=== PATIENT | female | born 1960 | race African-American/Black ===

== ENCOUNTER 2016-12-21 11:33 | Inpatient (IN) | payer OTHER ==
[2016-12-21 12:40] VITALS: BMI 33.4
--- NOTE | 2016-12-21 14:37 | HP ---
Admission [facility] Chief Complaint: REHAB TX FOR ALCOHOL AND DRUG DEPENDENCE Allergies/Adverse Reactions: Allergies Allergy/AdvReac Type Severity Reaction Status Date / Time LARA Inhibitors Allergy Verified 08/01/16 10:04 enalapril maleate Allergy Verified 08/01/16 10:05 [From Vasotec] enalaprilat dihydrate Allergy Verified 08/01/16 10:05 [From Vasotec] shellfish derived Allergy Verified 08/01/16 10:05 History of Present Illness: 56 Y/O AA/FEMALE WITH A HX OF ALCOHOL DEPENDENCE SEEKING REHAB TX. PT WAS IN [facility] FOR C/O CHEST PAIN FROM 12/18/16 TO 12/21/16. DENIES ANY CHEST PAIN AT THIS TIME. PT WAS DISCHARGED FROM [facility] TODAY AND REFERRED TO REHAB. Exam Limitations: No Limitations - Ebola screening Have you traveled outside of the country in the last 21 days: No Have you had contact with anyone from an Ebola affected area: No Have you been sick,other than usual withdrawal symptoms: No - Review of Systems Constitutional: No Symptoms Reported EENT: reports: Dental Problems (MISSING TEETH;BILATERAL DENTURES BUT LEFT UPPER DENTURES AT HOME) Respiratory: reports: Shortness of Breath (HX ASTHMA), Wheezing Cardiac: reports: Lightheadedness GI: reports: No Symptoms Reported : reports: No Symptoms Reported Musculoskeletal: reports: No Symptoms Reported Integumentary: reports: No Symptoms Reported Neuro: reports: Headache, Unsteady Gait, Dizziness Endocrine: reports: No Symptoms Reported Hematology: reports: No Symptoms Reported Psychiatric: reports: Orientated x3, Depressed Other Systems: Reviewed and Negative Patient History - Patient Medical History Hx Anemia: No Hx Asthma: Yes (ALBUTEROL INH) Hx Chronic Obstructive Pulmonary Disease (COPD): Yes (ON MEDS) Hx Cancer: No Hx Cardiac Disorders: Yes (CHF) Hx Congestive Heart Failure: Yes (ON MEDS) Hx Hypertension: Yes (ON MEDS) Hx Hypercholesterolemia: Yes (ON MEDS) Hx Pacemaker: Yes (R CHEST WALL STATES CHECKED LAST MONTH) HX Cerebrovascular Accident: No Hx Seizures: No Hx Dementia: No Hx Diabetes: No Hx Gastrointestinal Disorders: No Hx Liver Disease: No Hx Genitourinary Disorders: No Hx Sexually Transmitted Disorders: No Hx Renal Disease (ESRD): No Hx Thyroid Disease: No Hx Human Immunodeficiency Virus (HIV): No (NEGATIVE HX) Hx Hepatitis C: No Hx Depression: Yes (ON MEDS) Hx Suicide Attempt: No Hx Bipolar Disorder: Yes (ON MEDS) Hx Schizophrenia: Yes (ON MEDS) - Patient Surgical History Past Surgical History: Yes Hx Neurologic Surgery: No Hx Cataract Extraction: No Hx Cardiac Surgery: No Hx Lung Surgery: No Hx Breast Surgery: No Hx Breast Biopsy: No Hx Abdominal Surgery: No Hx Appendectomy: No Hx Cholecystectomy: No Hx Genitourinary Surgery: No Hx Section: No Hx Orthopedic Surgery: No Other Surgical History: Cardiac Surgery-Pace maker Anesthesia Reaction: No - PPD History Previous Implant?: Yes Implanted On Prior [facility] Admission?: No Date: 08/02/16 Results: 0MM PPD to be Administered?: No - Reproductive History Patient is a Female of Child Bearing Age (11 -55 yrs old): No (MENOPAUSAL) Last Menstrual Period: 01/05/09 Patient : No - Smoking Cessation Smoking history: Former smoker Have you smoked in the past 12 months: No If you are a former smoker, when did you quit?: 3 years Cigars Per Day: 0 Hx Chewing Tobacco Use: No Initiated information on smoking cessation: No - Substance & Tx. History Hx Alcohol Use: Yes (VODKA) Hx Substance Use: Yes (COCAINE) Substance Use Type: Alcohol, Cocaine Hx Substance Use Treatment: Yes ([email or web address]) Family Disease History - Family Disease History Family Disease History: Diabetes: Father, Heart Disease: Mother Admission Physical Exam S - Vital Signs Vital Signs: Vital Signs - 24 hr 12/21/16 12:37 Temperature 97.2 F L Pulse Rate 60 Respiratory 20 Rate Blood Pressure 104/50 - Physical General Appearance: Yes: No Apparent Distress, Obese, Anxious HEENTM: Yes: EOMI, Normocephalic, YADIRA, Pharynx Normal Respiratory: Yes: Chest Non-Tender, Lungs Clear, Normal Breath Sounds, No Respiratory Distress Neck: Yes: No masses,lesions,Nodules, Supple, Trachea in good position Breast: Yes: Breast Exam Deferred Cardiology: Yes: Regular Rhythm, Regular Rate, S1, S2, Surgical Scar (AT PACEMAKER POSITION) Abdominal: Yes: Within Normal Limits, Normal Bowel Sounds, Non Tender, Soft Genitourinary: Yes: Other (N/C) Back: Yes: Within Normal Limits Musculoskeletal: Yes: full range of Motion, Gait Steady Extremities: Yes: Normal Range of Motion, Non-Tender Neurological: Yes: sticker operator II-XII NML intact, Fully Oriented, Alert Integumentary: Yes: Dry, Warm Lymphatic: Yes: Within Normal Limits - Diagnostic (1) Chest pain Current Visit: Yes Status: Chronic Qualifiers: Chest pain type: unspecified Qualified Code(s): R07.9 - Chest pain, unspecified (2) Cocaine dependence, uncomplicated Current Visit: Yes Status: Chronic (3) Hyperlipidemia Current Visit: Yes Status: Chronic Qualifiers: Hyperlipidemia type: unspecified Qualified Code(s): E78.5 - Hyperlipidemia, unspecified (4) Hypertension Current Visit: Yes Status: Chronic Qualifiers: Hypertension type: essential hypertension Qualified Code(s): I10 - Essential (primary) hypertension (5) AICD (automatic cardioverter/defibrillator) present Current Visit: Yes Status: Chronic (6) Alcohol dependence with uncomplicated withdrawal Current Visit: Yes Status: Chronic (7) Atrial fibrillation Current Visit: Yes Status: Chronic Qualifiers: Atrial fibrillation type: paroxysmal Qualified Code(s): I48.0 - Paroxysmal atrial fibrillation (8) COPD (chronic obstructive pulmonary disease) Current Visit: Yes Status: Chronic Qualifiers: COPD type: unspecified COPD Qualified Code(s): J44.9 - Chronic obstructive pulmonary disease, unspecified (9) Chronic heart failure Current Visit: Yes Status: Chronic Qualifiers: Heart failure type: systolic Qualified Code(s): I50.22 - Chronic systolic (congestive) heart failure Cleared for Admission [facility] - Detox or Rehab Claeared for Rehab Admission: Yes [facility] Breath Alcohol Content Breath Alcohol Content: 0 Urine Pregancy Test - Result Urine Test Results: Negative- NO Line Present Urine Drug Screen - Results Drug Screen Negative: No Urine Drug Screen Results: ADRIAN-Cocaine, BZO-Benzodiazepines
[2016-12-21] MEDS ORDERED: ACETAMINOPHEN 325 MG TABLET (FP) PO PRN (14:48)
[2016-12-21] MEDS ORDERED: MAG HYDROX/AL HYDROX/SIMETH 30 ML UNIT-DOSE CUP PO PRN (14:48)
[2016-12-21] MEDS ORDERED: MAGNESIUM CITRATE 300 ML BOTTLE PO PRN (14:48)
[2016-12-21] MEDS ORDERED: P-EPHED 60MG/TRIPROLIDI 2.5MG TABLET PO PRN (14:48)
[2016-12-21] MEDS ORDERED: LOPERAMIDE HCL 2 MG CAPSULE PO PRN (14:48)
[2016-12-21] MEDS ORDERED: IBUPROFEN 400 MG TABLET (FP) PO PRN (14:48)
[2016-12-21] MEDS ORDERED: MAGNESIUM HYDROX 2400MG/30ML ORAL SUSPENSION 30 ML CUP PO PRN (14:48)
[2016-12-21] MEDS ORDERED: MENTHOL/PHENOL 1 EACH UD MM PRN (14:48)
[2016-12-21] MEDS ORDERED: diphenhydrAMINE HCL 50 MG CAPSULE PO PRN (14:48)
[2016-12-21] MEDS ORDERED: ALBUTEROL SO4 6.7 GM HFA INHALER IH PRN (15:00)
[2016-12-21] MEDS: THIAMINE HCL 100 MG TABLET (FP) PO SCH (22:21)
[2016-12-21] MEDS: ATORVASTATIN CA 40 MG TABLET (FP) PO SCH (22:22)
[2016-12-21] MEDS: hydrALAZINE HCL 25 MG TABLET (FP) PO SCH (22:22)
[2016-12-21] MEDS ORDERED: PT OWN MED DRAWER 7, Y5N ONE (22:32)
[2016-12-22] MEDS: hydrALAZINE HCL 25 MG TABLET (FP) PO SCH ×3 (06:54→22:30)
[2016-12-22] MEDS ORDERED: PT OWN MED DRAWER 7, Y5N ONE ×3 (08:55→12:18)
[2016-12-22] MEDS ORDERED: FUROSEMIDE 40 MG TABLET (FP) PO SCH (10:00)
[2016-12-22] MEDS ORDERED: ASPIRIN 325 MG ENTERIC COATED TABLET (FP) PO SCH (10:00)
[2016-12-22] MEDS ORDERED: ARIPiprazole 20 MG TABLET PO SCH ×2 (10:00→12:00)
[2016-12-22] MEDS ORDERED: ISOSORBIDE MONONITRATE 30 MG TAB.SR.24H (FP) PO SCH ×2 (10:00)
[2016-12-22] MEDS ORDERED: SPIRONOLACTONE 25 MG TABLET (FP) PO SCH ×2 (10:00)
[2016-12-22] MEDS ORDERED: amLODIPine BESYLATE 2.5 MG TABLET (FP) PO SCH (10:00)
[2016-12-22] MEDS ORDERED: ARIPiprazole 15 MG TABLET PO SCH (10:00)
[2016-12-22] MEDS: ISOSORBIDE MONONITRATE 20 MG TABLET PO SCH (10:24)
[2016-12-22] MEDS: PRENATAL VITAMINS W/ FOLIC ACID TABLET (FP) PO SCH (10:24)
[2016-12-22] MEDS: FUROSEMIDE 20 MG TABLET (FP) PO SCH (10:25)
[2016-12-22] MEDS: ASPIRIN COATED 81 MG TABLET.EC PO SCH (10:25)
[2016-12-22] MEDS: SPIRONOLACTONE 25 MG TABLET (FP) PO SCH (10:25)
[2016-12-22] MEDS: FLUoxetine HCL 20 MG CAPSULE (FP) PO SCH (10:25)
[2016-12-22] MEDS: METOPROLOL SUCCINATE 25 MG TAB.SR.24H (FP) PO SCH (10:25)
[2016-12-22] MEDS: RIVAROXABAN 20 MG TABLET PO SCH (10:26)
[2016-12-22] MEDS: DIGOXIN 0.125 MG TABLET (FP) PO SCH (10:26)
[2016-12-22] MEDS: DOCUSATE SODIUM 100 MG CAPSULE (FP) PO SCH (10:28)
[2016-12-22] MEDS: AMIODARONE HCL 200 MG TABLET (FP) PO SCH (10:29)
[2016-12-22] MEDS: PANTOPRAZOLE 40 MG TABLET (FP) PO SCH (10:31)
[2016-12-22] MEDS ORDERED: ARIPiprazole 10 MG TABLET PO SCH (11:34)
--- NOTE | 2016-12-22 12:43 | PN ---
[facility] Progress Note (SOAP) Subjective: Pt. C/O retrosternal chest radiating to left shoulder. Pt. has hx. of AF, CHF, HTN & Pacemaker. Objective: 12/22/16 12:36 Vital Signs - 8 hr 12/22/16 12/22/16 12/22/16 07:14 09:15 10:00 Temperature 98.1 F 98.5 F Pulse Rate 68 69 60 Respiratory 18 18 16 Rate Blood Pressure 127/87 154/80 108/63 12/22/16 12/22/16 10:26 11:30 Temperature 98.5 F Pulse Rate 69 69 Respiratory 16 Rate Blood Pressure 108/63 Lungs : Clear Heart : RR, no murmur Assessment: 12/22/16 12:39 Angina Pectoris Plan: O2 via nasal cannula NTG 0.4mg SL Transfer to ED, report given to Dr. Coffey
[2016-12-22] MEDS ORDERED: ARIPiprazole 10 MG TABLET PO ONE (12:45)
--- NOTE | 2016-12-22 16:11 | EKG ---
Test Reason : Blood Pressure : / mmHG Vent. Rate : 060 BPM Atrial Rate : 060 BPM P-R Int : 230 ms QRS Dur : 114 ms QT Int : 446 ms P-R-T Axes : 047 028 132 degrees QTc Int : 446 ms Atrial-paced rhythm with prolonged AV conduction INCOMPLETE LEFT BUNDLE BRANCH BLOCK T WAVE ABNORMALITY, CONSIDER ANTEROLATERAL ISCHEMIA ABNORMAL ECG WHEN COMPARED WITH ECG OF 21-DEC-2016 21:05, ELECTRONIC ATRIAL PACEMAKER HAS REPLACED SINUS RHYTHM Confirmed by DENAE BEACH MD ([id number]) on 12/22/2016 4:11:30 PM Referred By: Rizwana Mustafa Confirmed By:DENAE BEACH MD
--- NOTE | 2016-12-22 16:15 | EKG ---
Test Reason : Blood Pressure : / mmHG Vent. Rate : 066 BPM Atrial Rate : 066 BPM P-R Int : 190 ms QRS Dur : 112 ms QT Int : 428 ms P-R-T Axes : 000 -24 156 degrees QTc Int : 448 ms SINUS RHYTHM WITH OCCASIONAL atrial-paced complexes AND WITH OCCASIONAL PREMATURE VENTRICULAR COMPLEXES LOW VOLTAGE QRS ABNORMAL ECG WHEN COMPARED WITH ECG OF 01-AUG-2016 17:58, PREMATURE VENTRICULAR COMPLEXES ARE NOW PRESENT Confirmed by YONG CORTEZ, DENAE ([id number]) on 12/22/2016 4:15:28 PM Referred By: Rizwana Mustafa Confirmed By:DENAE BEACH MD
[2016-12-22] MEDS: THIAMINE HCL 100 MG TABLET (FP) PO SCH (22:30)
[2016-12-22] MEDS: ATORVASTATIN CA 40 MG TABLET (FP) PO SCH (22:30)
[2016-12-22] MEDS: traZODone HCL 100 MG TABLET (FP) PO SCH (22:30)
[2016-12-23] MEDS: hydrALAZINE HCL 25 MG TABLET (FP) PO SCH ×3 (06:31→21:16)
[2016-12-23] MEDS ORDERED: PT OWN MED DRAWER 7, Y5N ONE ×3 (08:10→13:04)
[2016-12-23 09:23] LABS: MCH 29.1 pg (25.7-33.7); MCHC 32.6 g/dl (32.0-36.0); MEAN CELL VOLUME 89.1 fl (80-96); PLATELET COUNT 196 K/MM3 (134-434); RDW 16.5 % (11.6-15.6); WHITE BLOOD COUNT 2.5 K/mm3 (4.0-10.0)
[2016-12-23] MEDS: SPIRONOLACTONE 25 MG TABLET (FP) PO SCH (09:25)
[2016-12-23] MEDS: ARIPiprazole 10 MG TABLET PO SCH (09:25)
[2016-12-23] MEDS: DOCUSATE SODIUM 100 MG CAPSULE (FP) PO SCH (09:26)
[2016-12-23] MEDS: AMIODARONE HCL 200 MG TABLET (FP) PO SCH (09:26)
[2016-12-23] MEDS: ASPIRIN COATED 81 MG TABLET.EC PO SCH (09:27)
[2016-12-23] MEDS: DIGOXIN 0.125 MG TABLET (FP) PO SCH (09:27)
[2016-12-23] MEDS: ISOSORBIDE MONONITRATE 20 MG TABLET PO SCH (09:27)
[2016-12-23] MEDS: FUROSEMIDE 20 MG TABLET (FP) PO SCH (09:27)
[2016-12-23] MEDS: PRENATAL VITAMINS W/ FOLIC ACID TABLET (FP) PO SCH (09:27)
[2016-12-23] MEDS: PANTOPRAZOLE 40 MG TABLET (FP) PO SCH (09:28)
[2016-12-23] MEDS: METOPROLOL SUCCINATE 25 MG TAB.SR.24H (FP) PO SCH (09:28)
[2016-12-23] MEDS: RIVAROXABAN 20 MG TABLET PO SCH (09:28)
[2016-12-23] MEDS: FLUoxetine HCL 20 MG CAPSULE (FP) PO SCH (09:28)
[2016-12-23 09:30] LABS: ANION GAP 7 (8-16); CALCIUM 8.6 mg/dL (8.5-10.1); CO2 29 mmol/L (21-32); CREATININE 0.8 mg/dL (0.55-1.02); GLUCOSE,RANDOM 80 mg/dL (74-106); SGOT/AST 14 U/L (15-37); SGPT/ALT 16 U/L (12-78)
[2016-12-23 09:32] LABS: ALK PHOS 42 U/L (45-117); BILIRUBIN,TOTAL 0.4 mg/dL (0.2-1.0); TOT PROT 6.5 g/dl (6.4-8.2)
[2016-12-23 09:38] LABS: INR 1.24 (0.82-1.09); PROTHROMBIN TIME (PATIENT) 13.7 SEC (9.98-11.88)
[2016-12-23 11:26] LABS: HIV 1 & 2 AB NEGATIVE; HIV 1 AGp24 NEGATIVE
[2016-12-23] MEDS: ATORVASTATIN CA 40 MG TABLET (FP) PO SCH (21:16)
[2016-12-23] MEDS: traZODone HCL 100 MG TABLET (FP) PO SCH (21:16)
[2016-12-23] MEDS: THIAMINE HCL 100 MG TABLET (FP) PO SCH (23:30)
[2016-12-24] MEDS: hydrALAZINE HCL 25 MG TABLET (FP) PO SCH ×3 (06:29→21:16)
--- NOTE | 2016-12-24 08:05 | HP ---
Psychiatrist Admission - Data Date of interview: 12/24/16 Admission source: [facility] Identifying data: This is the third [facility] admission for this 56 years old female, mother of 3 children, unemployed on SSI, domiciled Medical History: Significant for Asthma, HTN, Hyperlipidemia, CHF, AFib and S/P ICD placement in December 10, 2010 Psychiatric History: Reports being diagnosed with Schizoaffective Disorder in 1998 and has hd 2 previous psychiatric admissions both to [facility] respectively in February & Aug 2016(SI). Reports seing a Dr Marlena Angelo, a staff psychiatrist at [facility] and she is prescribed Prozac 20 mg po daily and Abilify 5 mg po HS(Both Rx filled on 11/18/16). Reports feeling fine and sleeping wel at present. Denies experiencing psychotic, manic or depressive symptoms, S/H ideations Physical/Sexual Abuse/Trauma History: Denies history of emotional, physical or sexual abuse as well as DV relationship Additional Comment: No criminal hstory Vital Signs: Vital Signs - 24 hr 12/23/16 12/23/16 12/23/16 09:13 09:27 13:00 Temperature Pulse Rate 110 H 110 H 62 Respiratory 16 16 Rate Blood Pressure 123/70 109/63 12/23/16 12/24/16 12/24/16 23:04 00:30 03:30 Temperature Pulse Rate 60 Respiratory 18 18 Rate Blood Pressure 122/79 12/24/16 07:07 Temperature 97.8 F Pulse Rate 60 Respiratory 18 Rate Blood Pressure 134/84 Allergies/Adverse Reactions: Allergies Allergy/AdvReac Type Severity Reaction Status Date / Time LARA Inhibitors Allergy Verified 12/22/16 13:44 enalaprilat dihydrate Allergy Verified 12/22/16 13:44 [From Vasotec] shellfish derived Allergy Verified 12/22/16 13:44 Date of last physical exam: 12/21/16 Concur with the findings of this exam: Yes - Substance Abuse/Tx History Hx Alcohol Use: Yes Hx Substance Use: Yes Substance Use Type: Alcohol (Started drinking alcohol at age 20, consumes half a pint of vodka daily. Last drink on 12/21/16 ), Cocaine (Started smoking crack cocaine at age 29, consumes $100 worth daily. Last smoked on 12/18/16) Hx Substance Use Treatment: Yes (2 previous inpt detox & 2 inpt rehab @ [facility]) - Admission Criteria Previous failed treatment: Yes Poor recovery environment: Yes Comorbidities: Yes Lacks judgement: Yes Mental Status Exam - Mental Status Exam Alert and Oriented to: Time, Place, Person Cognitive Function: Fair Patient Appearance: Well Groomed Mood: Hopeful, Euthymic Affect: Blunted Speech Pattern: Clear Voice Loudness: Normal Thought Process: Intact Thought Disorder: Not Present Hallucinations: Denies Suicidal Ideation: Denies Homicidal Ideation: Denies Insight/Judgement: Fair Sleep: Fair Appetite: Good Muscle strength/Tone: Normal Gait/Station: Normal Psychiatric Findings - Problem List ([place] 1, 2,3) (1) Alcohol dependence with uncomplicated withdrawal Current Visit: Yes Status: Chronic (2) Cocaine dependence, uncomplicated Current Visit: Yes Status: Chronic (3) Schizoaffective disorder Current Visit: Yes Status: Acute (4) COPD (chronic obstructive pulmonary disease) Current Visit: Yes Status: Chronic Qualifiers: COPD type: unspecified COPD Qualified Code(s): J44.9 - Chronic obstructive pulmonary disease, unspecified (5) AICD (automatic cardioverter/defibrillator) present Current Visit: Yes Status: Chronic (6) Chronic heart failure Current Visit: Yes Status: Chronic Qualifiers: Heart failure type: systolic Qualified Code(s): I50.22 - Chronic systolic (congestive) heart failure (7) Hyperlipidemia Current Visit: Yes Status: Chronic Qualifiers: Hyperlipidemia type: unspecified Qualified Code(s): E78.5 - Hyperlipidemia, unspecified (8) Hypertension Current Visit: Yes Status: Chronic Qualifiers: Hypertension type: essential hypertension Qualified Code(s): I10 - Essential (primary) hypertension - Initial Treatment Plan Initial Treatment Plan: 1) Continue Prozac 20 mg po daily and Abilify 5 mg po daily. 2) Monitor progress
[2016-12-24] MEDS ORDERED: PT OWN MED DRAWER 7, Y5N ONE ×3 (08:32→20:35)
[2016-12-24 10:02] LABS: URINE APPEARANCE CLEAR; URINE BILIRUBIN NEGATIVE (NEGATIVE); URINE BLOOD NEGATIVE (NEGATIVE); URINE COLOR YELLOW; URINE GLUCOSE (UA) NEGATIVE (NEGATIVE); URINE KETONE NEGATIVE (NEGATIVE); URINE LEUK ESTERASE NEGATIVE (NEGATIVE); URINE NITRITE NEGATIVE (NEGATIVE); URINE PROTEIN NEGATIVE (NEGATIVE); URINE UROBILINOGEN NEGATIVE E.U./dl (0.2-1.0)
[2016-12-24] MEDS: PRENATAL VITAMINS W/ FOLIC ACID TABLET (FP) PO SCH (10:11)
[2016-12-24] MEDS: AMIODARONE HCL 200 MG TABLET (FP) PO SCH (10:12)
[2016-12-24] MEDS: SPIRONOLACTONE 25 MG TABLET (FP) PO SCH (10:12)
[2016-12-24] MEDS: ARIPiprazole 10 MG TABLET PO SCH (10:12)
[2016-12-24] MEDS: DIGOXIN 0.125 MG TABLET (FP) PO SCH (10:12)
[2016-12-24] MEDS: PANTOPRAZOLE 40 MG TABLET (FP) PO SCH (10:13)
[2016-12-24] MEDS: METOPROLOL SUCCINATE 25 MG TAB.SR.24H (FP) PO SCH (10:13)
[2016-12-24] MEDS: ASPIRIN COATED 81 MG TABLET.EC PO SCH (10:13)
[2016-12-24] MEDS: FLUoxetine HCL 20 MG CAPSULE (FP) PO SCH (10:13)
[2016-12-24] MEDS: DOCUSATE SODIUM 100 MG CAPSULE (FP) PO SCH (10:13)
[2016-12-24] MEDS: RIVAROXABAN 20 MG TABLET PO SCH (10:14)
[2016-12-24] MEDS: FUROSEMIDE 20 MG TABLET (FP) PO SCH (10:14)
[2016-12-24] MEDS: ISOSORBIDE MONONITRATE 20 MG TABLET PO SCH (10:15)
[2016-12-24] MEDS ORDERED: NITROGLYCERIN SUBLINGUAL 1/150 0.4 MG TAB ONE (10:41)
[2016-12-24] MEDS: NITROGLYCERIN SUBLINGUAL 1/150 0.4 MG TAB SL PRN (10:44)
--- NOTE | 2016-12-24 11:25 | PN ---
[facility] Progress Note (SOAP) Subjective: Pt. is c/o chest pain 06/25 given NTG & O2 via nasal cannula 2L/min now it's . Objective: 12/24/16 11:22 Vital Signs - 8 hr 12/24/16 12/24/16 12/24/16 03:30 07:07 09:47 Temperature 97.8 F Pulse Rate 60 60 Respiratory 18 18 Rate Blood Pressure 134/84 108/71 12/24/16 12/24/16 10:10 10:12 Temperature Pulse Rate 61 61 Respiratory Rate Blood Pressure 102/71 O2 sat 100% Lungs : Clear A&P Heart : RR,no murmur Ekg done stat no changes from previous Ekg Assessment: 12/24/16 11:24 Chest pain,atypical VS Angina pectoris(established diagnosis) Plan: Troponin, CPK NTG,Aspirin,O2 Bed rest
[2016-12-24] MEDS ORDERED: ONDANSETRON *ODT* 4 MG TABLET SL PRN (11:27)
--- NOTE | 2016-12-24 11:36 | EKG ---
Test Reason : Blood Pressure : / mmHG Vent. Rate : 060 BPM Atrial Rate : 060 BPM P-R Int : 236 ms QRS Dur : 116 ms QT Int : 450 ms P-R-T Axes : 056 -19 104 degrees QTc Int : 450 ms Atrial-paced rhythm with prolonged AV conduction INCOMPLETE LEFT BUNDLE BRANCH BLOCK T WAVE ABNORMALITY, CONSIDER LATERAL ISCHEMIA ABNORMAL ECG WHEN COMPARED WITH ECG OF 21-DEC-2016 20:31, PREMATURE VENTRICULAR COMPLEXES ARE NO LONGER PRESENT Confirmed by HORACE BO MD ([id number]) on 12/24/2016 11:35:40 AM Referred By: Rizwana Mustafa Confirmed By:HORACE BO MD
[2016-12-24 12:45] LABS: TROPONIN I < 0.02 ng/ml (0.00-0.05)
[2016-12-24] MEDS: THIAMINE HCL 100 MG TABLET (FP) PO SCH (21:17)
[2016-12-24] MEDS: traZODone HCL 100 MG TABLET (FP) PO SCH (21:17)
[2016-12-24] MEDS: ATORVASTATIN CA 40 MG TABLET (FP) PO SCH (21:17)
[2016-12-25] MEDS ORDERED: PT OWN MED DRAWER 7, Y5N ONE ×3 (05:50→15:50)
[2016-12-25] MEDS: hydrALAZINE HCL 25 MG TABLET (FP) PO SCH ×3 (06:51→21:13)
[2016-12-25] MEDS: PANTOPRAZOLE 40 MG TABLET (FP) PO SCH (10:01)
[2016-12-25] MEDS: PRENATAL VITAMINS W/ FOLIC ACID TABLET (FP) PO SCH (10:01)
[2016-12-25] MEDS: ARIPiprazole 5 MG TABLET (FP) PO SCH (10:02)
[2016-12-25] MEDS: FUROSEMIDE 20 MG TABLET (FP) PO SCH (10:02)
[2016-12-25] MEDS: SPIRONOLACTONE 25 MG TABLET (FP) PO SCH (10:02)
[2016-12-25] MEDS: ASPIRIN COATED 81 MG TABLET.EC PO SCH (10:02)
[2016-12-25] MEDS: FLUoxetine HCL 20 MG CAPSULE (FP) PO SCH (10:02)
[2016-12-25] MEDS: METOPROLOL SUCCINATE 25 MG TAB.SR.24H (FP) PO SCH (10:02)
[2016-12-25] MEDS: DOCUSATE SODIUM 100 MG CAPSULE (FP) PO SCH (11:27)
[2016-12-25] MEDS: ISOSORBIDE MONONITRATE 20 MG TABLET PO SCH ×2 (11:27→15:48)
[2016-12-25] MEDS: DIGOXIN 0.125 MG TABLET (FP) PO SCH ×2 (11:27→15:47)
[2016-12-25] MEDS: AMIODARONE HCL 200 MG TABLET (FP) PO SCH (11:27)
[2016-12-25] MEDS: RIVAROXABAN 20 MG TABLET PO SCH (11:28)
--- NOTE | 2016-12-25 14:19 | EKG ---
Test Reason : Blood Pressure : / mmHG Vent. Rate : 060 BPM Atrial Rate : 060 BPM P-R Int : 222 ms QRS Dur : 114 ms QT Int : 442 ms P-R-T Axes : 059 -17 101 degrees QTc Int : 442 ms ATRIAL PACING WITH WITH 1ST DEGREE A-V BLOCK NONSPECIFIC INTRAVENTRICULAR CONDUCTION DEFECT T WAVE ABNORMALITY, CONSIDER LATERAL ISCHEMIA ABNORMAL ECG WHEN COMPARED WITH ECG OF 22-DEC-2016 18:50, NO SIGNIFICANT CHANGE WAS FOUND Confirmed by NIRMAL WESLEY MD ([id number]) on 12/25/2016 2:18:43 PM Referred By: Rizwana Mustafa Confirmed By:NIRMAL WESLEY MD
[2016-12-25] MEDS: ATORVASTATIN CA 40 MG TABLET (FP) PO SCH (21:13)
[2016-12-25] MEDS: THIAMINE HCL 100 MG TABLET (FP) PO SCH (21:13)
[2016-12-25] MEDS: traZODone HCL 100 MG TABLET (FP) PO SCH (21:14)
[2016-12-26] MEDS: hydrALAZINE HCL 25 MG TABLET (FP) PO SCH ×3 (06:48→22:01)
[2016-12-26] MEDS: ARIPiprazole 5 MG TABLET (FP) PO SCH (09:58)
[2016-12-26] MEDS: ASPIRIN COATED 81 MG TABLET.EC PO SCH (09:58)
[2016-12-26] MEDS: RIVAROXABAN 20 MG TABLET PO SCH (09:58)
[2016-12-26] MEDS: DOCUSATE SODIUM 100 MG CAPSULE (FP) PO SCH (09:58)
[2016-12-26] MEDS: PRENATAL VITAMINS W/ FOLIC ACID TABLET (FP) PO SCH (09:58)
[2016-12-26] MEDS: FLUoxetine HCL 20 MG CAPSULE (FP) PO SCH (09:59)
[2016-12-26] MEDS: PANTOPRAZOLE 40 MG TABLET (FP) PO SCH (09:59)
[2016-12-26] MEDS: METOPROLOL SUCCINATE 25 MG TAB.SR.24H (FP) PO SCH (09:59)
[2016-12-26] MEDS: DIGOXIN 0.125 MG TABLET (FP) PO SCH (09:59)
[2016-12-26] MEDS: FUROSEMIDE 20 MG TABLET (FP) PO SCH (09:59)
[2016-12-26] MEDS: ISOSORBIDE MONONITRATE 20 MG TABLET PO SCH (10:00)
[2016-12-26] MEDS: AMIODARONE HCL 200 MG TABLET (FP) PO SCH ×2 (10:00→11:00)
[2016-12-26] MEDS: SPIRONOLACTONE 25 MG TABLET (FP) PO SCH (10:00)
[2016-12-26] MEDS ORDERED: PT OWN MED DRAWER 7, Y5N ONE ×2 (10:45→14:03)
[2016-12-26] MEDS ORDERED: COLLOIDAL OATMEAL 1 BAR EACH TP PRN (14:34)
[2016-12-26] MEDS: traZODone HCL 100 MG TABLET (FP) PO SCH (22:00)
[2016-12-26] MEDS: ATORVASTATIN CA 40 MG TABLET (FP) PO SCH (22:00)
[2016-12-26] MEDS: THIAMINE HCL 100 MG TABLET (FP) PO SCH (22:00)
[2016-12-27] MEDS: hydrALAZINE HCL 25 MG TABLET (FP) PO SCH ×3 (06:34→21:16)
[2016-12-27] MEDS: AMIODARONE HCL 200 MG TABLET (FP) PO SCH (10:25)
[2016-12-27] MEDS: DIGOXIN 0.125 MG TABLET (FP) PO SCH (10:26)
[2016-12-27] MEDS: METOPROLOL SUCCINATE 25 MG TAB.SR.24H (FP) PO SCH (10:26)
[2016-12-27] MEDS: FUROSEMIDE 20 MG TABLET (FP) PO SCH (10:26)
[2016-12-27] MEDS: SPIRONOLACTONE 25 MG TABLET (FP) PO SCH (10:27)
[2016-12-27] MEDS: ARIPiprazole 5 MG TABLET (FP) PO SCH (10:27)
[2016-12-27] MEDS: FLUoxetine HCL 20 MG CAPSULE (FP) PO SCH (10:27)
[2016-12-27] MEDS: PANTOPRAZOLE 40 MG TABLET (FP) PO SCH (10:27)
[2016-12-27] MEDS: PRENATAL VITAMINS W/ FOLIC ACID TABLET (FP) PO SCH (10:27)
[2016-12-27] MEDS: ASPIRIN COATED 81 MG TABLET.EC PO SCH (10:28)
[2016-12-27] MEDS: ISOSORBIDE MONONITRATE 20 MG TABLET PO SCH (10:28)
[2016-12-27] MEDS: RIVAROXABAN 20 MG TABLET PO SCH (10:28)
[2016-12-27] MEDS: DOCUSATE SODIUM 100 MG CAPSULE (FP) PO SCH (10:28)
[2016-12-27] MEDS ORDERED: PT OWN MED DRAWER 7, Y5N ONE (11:15)
--- NOTE | 2016-12-27 11:25 | PN ---
Psychiatric Progress Note Vital Signs: Vital Signs Period Temp Pulse Resp BP Sys/Powell Pulse Ox Last 24 Hr 97.9 F 60-63 18-18 122-148/78-87 Date of Session: 12/27/16 Chief Complaint:: insomnia HPI: Patient is addressing alcohol, cocaine dependence comorbid Schizoaffective disorder. ROS: Significant for Asthma, HTN, Hyperlipidemia, CHF, AFib and S/P ICD placement in December 10, 2010. Current Medications: Active Medications Generic Name Dose Route Start Last Admin Trade Name Freq PRN Reason Stop Dose Admin Acetaminophen 650 mg 12/21/16 14:48 Tylenol - PO Q4H PRN PAIN Al Hydroxide/Mg Hydroxide 30 ml 12/21/16 14:48 Mylanta Oral Suspension - PO Q6H PRN DYSPEPSIA Albuterol Sulfate 2 puff 12/21/16 15:00 Ventolin Hfa Inhaler - IH Q4H PRN SHORTNESS OF BREATH Amiodarone HCl 200 mg 12/22/16 10:00 12/27/16 10:25 Cordarone - PO 200 mg DAILY PHONG Administration Aripiprazole 5 mg 12/25/16 10:00 12/27/16 10:27 Abilify PO 5 mg DAILY PHONG Administration Aspirin 81 mg 12/22/16 10:00 12/27/16 10:28 Ecotrin - PO 81 mg DAILY PHONG Administration Atorvastatin Calcium 40 mg 12/21/16 22:00 12/26/16 22:00 Lipitor - PO 40 mg HS PHONG Administration Colloidal Oatmeal 1 applic 12/26/16 14:34 12/26/16 15:46 Aveeno Soap - TP 1 bar DAILY PRN Administration HYGEINE Digoxin 0.125 mg 12/22/16 10:00 12/27/16 10:26 Lanoxin - PO 0.125 mg DAILY PHONG Administration Diphenhydramine HCl 50 mg 12/21/16 14:48 Benadryl - PO HSMR1 PRN INSOMNIA Docusate Sodium 100 mg 12/22/16 10:00 12/27/16 10:28 Colace - PO 100 mg DAILY PHONG Administration Eucalyptus/Menthol/Phenol/Sorbitol 1 each 12/21/16 14:48 Cepastat Lozenge - MM Q4H PRN SORE THROAT Fluoxetine HCl 20 mg 12/25/16 10:00 12/27/16 10:27 Prozac - PO 20 mg DAILY PHONG Administration Furosemide 20 mg 12/22/16 10:00 12/27/16 10:26 Lasix - PO 20 mg DAILY PHONG Administration Guaifenesin 10 ml 12/21/16 14:48 Robitussin Dm - PO Q6H PRN COUGH Hydralazine HCl 25 mg 12/21/16 22:00 12/27/16 06:34 Apresoline - PO 25 mg TID [facility] Administration Isosorbide Mononitrate 20 mg 12/22/16 10:00 12/27/16 10:28 Ismo - PO 20 mg DAILY PHONG Administration Loperamide HCl 4 mg 12/21/16 14:48 Imodium - PO Q6H PRN DIARRHEA Magnesium Citrate 300 ml 12/21/16 14:48 Citroma - PO Q48H PRN CONSTIPATION Magnesium Hydroxide 30 ml 12/21/16 14:48 Milk Of Magnesia - PO DAILY PRN CONSTIPATION Metoprolol Succinate 25 mg 12/22/16 10:00 12/27/16 10:26 Toprol Xl - PO 25 mg DAILY [facility] Administration Nitroglycerin 0.4 mg 12/21/16 14:50 12/24/16 10:44 Nitrostat - SL 0.4 mg Q5M PRN Administration FOR CHEST PAIN Ondansetron HCl 8 mg 12/24/16 11:27 12/24/16 11:53 Zofran Odt - SL 8 mg Q6H PRN Administration NAUSEA AND/OR VOMITING Pantoprazole Sodium 40 mg 12/22/16 10:00 12/27/16 10:27 Protonix - PO 40 mg DAILY [facility] Administration Multivit/Folic Acid/Iron 1 tab 12/22/16 10:00 12/27/16 10:27 Vitamins (Sjr) - PO 1 tab DAILY [facility] Administration Pseudoephedrine/Triprolidine 1 combo 12/21/16 14:48 Actifed - PO TID PRN NASAL CONGESTION Rivaroxaban 20 mg 12/22/16 10:00 12/27/16 10:28 Xarelto - PO 20 mg DAILY [facility] Administration Spironolactone 50 mg 12/22/16 10:00 12/27/16 10:27 Aldactone - PO 50 mg DAILY [facility] Administration Thiamine HCl 100 mg 12/21/16 22:00 12/26/16 22:00 Vitamin B1 - PO 100 mg HS PHONG Administration Medication(s) Change(s): increase Trazodone 150 mg po hs Current Side Effect: No Lab tests ordered: No Lab tests reviewed: Yes Provider note:: Patient reports she is unable to sleep and was on 150 mg of Trazodone but currently on 100 mg p hs, reports no side-effects from medications , will increase medication. Psycheducation and sleep hygiene discussed with the patient, will continue to monitor progress. Total face to face time:: 30 Mental Status Exam - Mental Status Exam Alert and Oriented to: Time, Place, Person Cognitive Function: Grossly Intact Patient Appearance: Well Groomed Mood: Sad Affect: Appropriate, Mood Congruent Patient Behavior: Appropriate, Cooperative Speech Pattern: Clear, Appropriate Voice Loudness: Normal Thought Process: Intact, Goal Oriented Thought Disorder: Not Present Hallucinations: Denies Suicidal Ideation: Denies Homicidal Ideation: Denies Insight/Judgement: Fair Sleep: Poorly, Difficulty falling asleep Appetite: Fair Muscle strength/Tone: Normal Gait/Station: Normal Psychiatric Treatment Plan - Problem List (1) Schizoaffective disorder Current Visit: Yes (2) COPD (chronic obstructive pulmonary disease) Current Visit: Yes Qualifiers: COPD type: unspecified COPD Qualified Code(s): J44.9 - Chronic obstructive pulmonary disease, unspecified (3) Chronic heart failure Current Visit: Yes Qualifiers: Heart failure type: systolic Qualified Code(s): I50.22 - Chronic systolic (congestive) heart failure (4) Cocaine dependence, uncomplicated Current Visit: Yes (5) Alcohol dependence Current Visit: Yes
[2016-12-27] MEDS: NITROGLYCERIN SUBLINGUAL 1/150 0.4 MG TAB SL PRN (12:40)
--- NOTE | 2016-12-27 12:57 | PN ---
S Progress Note Note: C/O chest pain lower sternal area Vital Signs - 8 hr 12/27/16 12/27/16 12/27/16 06:49 09:56 10:26 Temperature 97.9 F Pulse Rate 60 63 63 Respiratory 18 Rate Blood Pressure 148/87 122/80 12/27/16 12:29 Temperature 97.4 F L Pulse Rate 62 Respiratory 20 Rate Blood Pressure 112/72 Laboratory Results - last 24 hr 12/27/16 13:00 Troponin I < 0.02 Lungs : clear Heart : Regular pacemaker rhythm Dx : Atypical chest pain.
[2016-12-27] MEDS: traZODone HCL 50 MG TABLET (FP) PO SCH (21:15)
[2016-12-27] MEDS: ATORVASTATIN CA 40 MG TABLET (FP) PO SCH (21:15)
[2016-12-27] MEDS: THIAMINE HCL 100 MG TABLET (FP) PO SCH (21:16)
[2016-12-28] MEDS: hydrALAZINE HCL 25 MG TABLET (FP) PO SCH ×3 (06:40→21:26)
--- NOTE | 2016-12-28 10:11 | EKG ---
Test Reason : Blood Pressure : / mmHG Vent. Rate : 060 BPM Atrial Rate : 060 BPM P-R Int : 240 ms QRS Dur : 122 ms QT Int : 420 ms P-R-T Axes : 056 026 095 degrees QTc Int : 420 ms Atrial-paced rhythm with prolonged AV conduction SEPTAL INFARCT , AGE UNDETERMINED NONSPECIFIC T WAVE ABNORMALITY Confirmed by CHERY LOPEZ MD ([id number]) on 12/28/2016 10:10:36 AM Referred By: Rizwana Mustafa Confirmed By:CHERY LOPEZ MD
[2016-12-28] MEDS: ASPIRIN COATED 81 MG TABLET.EC PO SCH (10:38)
[2016-12-28] MEDS: SPIRONOLACTONE 25 MG TABLET (FP) PO SCH (10:38)
[2016-12-28] MEDS: DOCUSATE SODIUM 100 MG CAPSULE (FP) PO SCH (10:38)
[2016-12-28] MEDS: ARIPiprazole 5 MG TABLET (FP) PO SCH (10:38)
[2016-12-28] MEDS: AMIODARONE HCL 200 MG TABLET (FP) PO SCH (10:38)
[2016-12-28] MEDS: FUROSEMIDE 20 MG TABLET (FP) PO SCH (10:39)
[2016-12-28] MEDS: ISOSORBIDE MONONITRATE 20 MG TABLET PO SCH (10:39)
[2016-12-28] MEDS: PANTOPRAZOLE 40 MG TABLET (FP) PO SCH (10:39)
[2016-12-28] MEDS: PRENATAL VITAMINS W/ FOLIC ACID TABLET (FP) PO SCH (10:39)
[2016-12-28] MEDS: DIGOXIN 0.125 MG TABLET (FP) PO SCH (10:39)
[2016-12-28] MEDS: FLUoxetine HCL 20 MG CAPSULE (FP) PO SCH (10:40)
[2016-12-28] MEDS: RIVAROXABAN 20 MG TABLET PO SCH (10:40)
[2016-12-28] MEDS: METOPROLOL SUCCINATE 25 MG TAB.SR.24H (FP) PO SCH (10:40)
[2016-12-28] MEDS ORDERED: PT OWN MED DRAWER 7, Y5N ONE (13:05)
[2016-12-28] MEDS: THIAMINE HCL 100 MG TABLET (FP) PO SCH (21:26)
[2016-12-28] MEDS: ATORVASTATIN CA 40 MG TABLET (FP) PO SCH (21:26)
[2016-12-28] MEDS: traZODone HCL 50 MG TABLET (FP) PO SCH (21:26)
[2016-12-29] MEDS: hydrALAZINE HCL 25 MG TABLET (FP) PO SCH ×3 (06:53→21:26)
[2016-12-29] MEDS: PRENATAL VITAMINS W/ FOLIC ACID TABLET (FP) PO SCH (10:12)
[2016-12-29] MEDS: ARIPiprazole 5 MG TABLET (FP) PO SCH (10:12)
[2016-12-29] MEDS: FLUoxetine HCL 20 MG CAPSULE (FP) PO SCH (10:13)
[2016-12-29] MEDS: DIGOXIN 0.125 MG TABLET (FP) PO SCH (10:13)
[2016-12-29] MEDS: RIVAROXABAN 20 MG TABLET PO SCH (10:13)
[2016-12-29] MEDS: ASPIRIN COATED 81 MG TABLET.EC PO SCH (10:13)
[2016-12-29] MEDS: FUROSEMIDE 20 MG TABLET (FP) PO SCH (10:14)
[2016-12-29] MEDS: ISOSORBIDE MONONITRATE 20 MG TABLET PO SCH (10:14)
[2016-12-29] MEDS: PANTOPRAZOLE 40 MG TABLET (FP) PO SCH (10:14)
[2016-12-29] MEDS: SPIRONOLACTONE 25 MG TABLET (FP) PO SCH (10:14)
[2016-12-29] MEDS: DOCUSATE SODIUM 100 MG CAPSULE (FP) PO SCH (10:14)
[2016-12-29] MEDS: AMIODARONE HCL 200 MG TABLET (FP) PO SCH (10:14)
[2016-12-29] MEDS: METOPROLOL SUCCINATE 25 MG TAB.SR.24H (FP) PO SCH (10:14)
[2016-12-29] MEDS: traZODone HCL 50 MG TABLET (FP) PO SCH (21:25)
[2016-12-29] MEDS: ATORVASTATIN CA 40 MG TABLET (FP) PO SCH (21:25)
[2016-12-29] MEDS: THIAMINE HCL 100 MG TABLET (FP) PO SCH (21:25)
[2016-12-30] MEDS: hydrALAZINE HCL 25 MG TABLET (FP) PO SCH (06:43)
[2016-12-30 10:07] VITALS: BP 93/62; TEMP 97.4
[2016-12-30] MEDS: AMIODARONE HCL 200 MG TABLET (FP) PO SCH (10:26)
[2016-12-30] MEDS: SPIRONOLACTONE 25 MG TABLET (FP) PO SCH (10:26)
[2016-12-30] MEDS: ISOSORBIDE MONONITRATE 20 MG TABLET PO SCH (10:26)
[2016-12-30 10:27] VITALS: PULSE 66
[2016-12-30] MEDS: METOPROLOL SUCCINATE 25 MG TAB.SR.24H (FP) PO SCH (10:27)
[2016-12-30] MEDS: DIGOXIN 0.125 MG TABLET (FP) PO SCH (10:27)
[2016-12-30] MEDS: FUROSEMIDE 20 MG TABLET (FP) PO SCH (10:27)
[2016-12-30] MEDS: PRENATAL VITAMINS W/ FOLIC ACID TABLET (FP) PO SCH (10:37)
[2016-12-30] MEDS: DOCUSATE SODIUM 100 MG CAPSULE (FP) PO SCH (10:37)
[2016-12-30] MEDS: ASPIRIN COATED 81 MG TABLET.EC PO SCH (10:37)
[2016-12-30] MEDS: PANTOPRAZOLE 40 MG TABLET (FP) PO SCH (10:37)
[2016-12-30] MEDS: FLUoxetine HCL 20 MG CAPSULE (FP) PO SCH (10:38)
[2016-12-30] MEDS: ARIPiprazole 5 MG TABLET (FP) PO SCH (10:38)
[2016-12-30] MEDS: RIVAROXABAN 20 MG TABLET PO SCH (10:38)
--- NOTE | 2016-12-30 11:03 | PN ---
S Progress Note Note: call to evaluate patient with substernal chest pain scale of 10,radiating to left arm no diaphoretic alert bp 93/62 p68 r24 t97.4 obesity lung no crepitaton heart normal heart sound,s1,s2 pitting edema both legs ekg nsr inverted t in v4 to v6 pulse oximeter 99% impresssion chest pain r/o mi r/o chf old mi hypertension hyperlipidemia s/p automatic implanted cardio defibrillator cocaine dependence alcohol dependence cardiomyopathy depression treatment o2 nasal canula 2 l/min asa 81 mgs po to [facility] er for evaluation spoke with dr mcclellan to be transported by [facility]
--- NOTE | 2016-12-30 14:29 | EKG ---
Test Reason : Blood Pressure : / mmHG Vent. Rate : 063 BPM Atrial Rate : 063 BPM P-R Int : 182 ms QRS Dur : 118 ms QT Int : 400 ms P-R-T Axes : 045 015 065 degrees QTc Int : 409 ms NORMAL SINUS RHYTHM POSSIBLE LEFT ATRIAL ENLARGEMENT SEPTAL INFARCT (CITED ON OR BEFORE 27-DEC-2016) T WAVE ABNORMALITY, CONSIDER LATERAL ISCHEMIA ABNORMAL ECG WHEN COMPARED WITH ECG OF 30-DEC-2016 09:09, SINUS RHYTHM HAS REPLACED ELECTRONIC ATRIAL PACEMAKER CLINICAL CORRELATION IS RECOMMENDED Confirmed by LUPILLO CORTEZ, NIRMAL ([id number]) on 12/30/2016 2:29:20 PM Referred By: Rizwana Mustafa Confirmed By:NIRMAL WESLEY MD
--- NOTE | 2016-12-31 17:32 | EKG ---
Test Reason : Blood Pressure : / mmHG Vent. Rate : 060 BPM Atrial Rate : 359 BPM P-R Int : 000 ms QRS Dur : 116 ms QT Int : 440 ms P-R-T Axes : 045 008 056 degrees QTc Int : 440 ms ATRIAL PACING WITH 1ST DEGREE A-V BLOCK SEPTAL INFARCT (CITED ON OR BEFORE 27-DEC-2016) T WAVE ABNORMALITY, CONSIDER LATERAL ISCHEMIA ABNORMAL ECG WHEN COMPARED WITH ECG OF 27-DEC-2016 12:13, NO SIGNIFICANT CHANGE WAS FOUND Confirmed by LUPILLO CORTEZ, NIRMAL ([id number]) on 12/31/2016 5:32:32 PM Referred By: Rizwana Mustafa Confirmed By:NIRMAL WESLEY MD
== END 2016-12-30 23:10 | disposition short-term general hospital (02) | DRG 772 ==
LOC: YASAS 11:33 → Y3W 15:53 → Y3E 16:32
PROVIDERS: ADMIT Psychiatry & Neurology Psychiatry; ATTEND Psychiatry & Neurology Psychiatry
PROC: HZ42ZZZ Group Counseling for Substance Abuse Treatment, Cognitive-Behavioral (ICD-10-PCS; principal; 2016-12-21)
DX: F10.20 Alcohol dependence, uncomplicated (principal); F14.20 Cocaine dependence, uncomplicated; F25.9 Schizoaffective disorder, unspecified; F32.9 Major depressive disorder, single episode, unspecified; I10 Essential (primary) hypertension; I25.2 Old myocardial infarction; I48.0 Paroxysmal atrial fibrillation; I50.22 Chronic systolic (congestive) heart failure; I20.8 Other forms of angina pectoris; E66.9 Obesity, unspecified; Z68.33 Body mass index [BMI] 33.0-33.9, adult; E78.5 Hyperlipidemia, unspecified; I42.9 Cardiomyopathy, unspecified; J45.909 Unspecified asthma, uncomplicated; J44.9 Chronic obstructive pulmonary disease, unspecified; Z87.891 Personal history of nicotine dependence; R07.9 Chest pain, unspecified; M79.602 Pain in left arm
CPT/HCPCS: 36415; 80053; 81003; 82550; 84484; 85027; 85610; 86593; 87389; 93005; 93010

== ENCOUNTER → 2016-12-22 | Emergency (ER) | payer OTHER ==
[~2016-12-22] MED LIST: ACETAMINOPHEN 325 MG TABLET (FP) ONE; ACETAMINOPHEN 500 MG TABLET (FP) PO ONE; ACETAMINOPHEN 650 MG/20.3 ML ORAL SOLUTION (CUPS) ONE; ASPIRIN 81 MG CHEWABLE TABLETS PO ONE; NITROGLYCERIN SUBLINGUAL 1/150 0.4 MG TAB SL PRN; ONDANSETRON *ODT* 4 MG TABLET ONE; ONDANSETRON *ODT* 4 MG TABLET SL ONE
[2016-12-22 13:51] VITALS: BMI 33.4
--- NOTE | 2016-12-22 14:12 | PDOC ---
Attending Attestation - Resident Resident Name: Dwain Mcdermott - ED Attending Attestation I have performed the following: I have examined & evaluated the patient, The case was reviewed & discussed with the resident, I agree w/resident's findings & plan, Exceptions are as noted - HPI HPI: 56 yo F history CHF, HTN, HL, cocaine abuse p/w 2 hour hx chest pain. Described as substernal pressure. No associated N/V, diaphoresis, SOB. She has had similar pain in the past, was discuarged from [facility] after workup for the same 1 day ago, was sent [facility] for rehab. She has had two negative cardiac caths in the past. - Physicial Exam PE: GENERAL: Awake, alert, and fully oriented, in no acute distress HEAD: No signs of trauma EYES: PERRLA, EOMI, sclera anicteric, conjunctiva clear ENT: Auricles normal inspection, hearing grossly normal, nares patent, oropharynx clear without exudates. Moist mucosa NECK: Normal ROM, supple, no lymphadenopathy, JVD, or masses LUNGS: Breath sounds equal, clear to auscultation bilaterally. No wheezes, and no crackles HEART: Regular rate and rhythm, normal S1 and S2, no murmurs, rubs or gallops ABDOMEN: Soft, nontender, normoactive bowel sounds. No guarding, no rebound. No masses EXTREMITIES: Normal range of motion, no edema. No clubbing or cyanosis. No cords, erythema, or tenderness NEUROLOGICAL: Cranial nerves II through XII grossly intact. Normal speech, normal gait SKIN: Warm, Dry, normal turgor, no rashes or lesions noted. - Medical Decision Making Patient with prior history HTN, HL, cocaine use presents with chest pain. Initial EKG without any acute findings. In light of recent workup for cp, just discharged, will obtain serial CE and EKG x2. If wnl, will transfer back to [facility].
--- NOTE | 2016-12-22 14:52 | PDOC ---
History of Present Illness - General History Source: Patient Exam Limitations: No Limitations <Dwain Mcdermott - Last Filed: 12/22/16 16:17> <Liborio Vicente - Last Filed: 12/22/16 21:19> <Shea Mckeon - Last Filed: 12/24/16 19:19> - General Chief Complaint: Chest Pain Stated Complaint: CHEST PAIN Time Seen by Provider: 12/22/16 14:08 - History of Present Illness Initial Comments: 12/22/16 14:46 56 yo F with significant PMHx of CHF, HTN , HLD, s/p ICD and cocaine abuse presents with 2 hr history of chest pain. Describes 06/25 substernal chest pressure that radiates to her left arm. Not associated with activity. Accompanied by diaphoresis, palpitations, nausea, vomiting and SOB. She has had several admissions for chest pain in the past. Most recent in 2015. She has been in and out of [facility] rehab over the past several months. Admits to using cocaine two days prior. She sees cardiology group at [facility] in [facility]. Last visit 2 mo ago. Last stress test and echo >2yrs ago. Denies fevers, URI, or recent travel. 12/22/16 16:17 (Dwain Mcdermott) Past History - Past Medical History Anemia: No Asthma: Yes Cancer: No Cardiac Disorders: Yes (A FIB) CVA: No COPD: Yes CHF: Yes (ON MEDS) Dementia: No Diabetes: No GI Disorders: No Disorders: No HTN: Yes Hypercholesterolemia: Yes (ON MEDS) Kidney Stones: No Liver Disease: No Suicide Attempt (Hx): No Seizures: No Thyroid Disease: No Other medical history: ALCOHOL & CRACK ADDICITON. - Surgical History Abdominal Surgery: No Appendectomy: No Cardiac Surgery: Yes (PM/DEFIB) Cholecystectomy: No Lung Surgery: No Neurologic Surgery: No Orthopedic Surgery: No - Reproductive History PID: No - Immunization History Immunization Up to Date: Yes - Psycho/Social/Smoking Cessation Hx Anxiety: Yes Suicidal Ideation: Yes (X1 NEVER ATTEMPTED.) Smoking History: Current every day smoker Have you smoked in the past 12 months: No Number of Cigarettes Smoked Daily: 5 If you are a former smoker, when did you quit?: 3 years Cigars Per Day: 0 Information on smoking cessation initiated: No Hx Alcohol Use: Yes Drug/Substance Use Hx: Yes (CRACK.) Substance Use Type: Alcohol, Cocaine Hx Substance Use Treatment: Yes <Dwain Mcdermott - Last Filed: 12/22/16 16:17> <Liborio Vicente - Last Filed: 12/22/16 21:19> <Shea Mkceon - Last Filed: 12/24/16 19:19> - Past Medical History Allergies/Adverse Reactions: Allergies Allergy/AdvReac Type Severity Reaction Status Date / Time LARA Inhibitors Allergy Verified 12/22/16 13:44 enalaprilat dihydrate Allergy Verified 12/22/16 13:44 [From Vasotec] shellfish derived Allergy Verified 12/22/16 13:44 Home Medications: Ambulatory Orders Albuterol Sulfate Inhaler - [Ventolin HFA Inhaler -] 2 inh IH Q4H PRN 01/09/13 Aripiprazole [Abilify -] 20 mg PO DAILY 01/09/13 Salmeterol/Fluticasone [Advair 250Mcg/50Mcg -] 1 inh IH BID 01/09/13 Spironolactone [Aldactone -] 50 mg PO DAILY 01/09/13 Atorvastatin Ca [Lipitor] 40 mg PO HS tablet 07/22/15 Amiodarone HCl [Cordarone -] 200 mg PO DAILY 08/01/16 Acetaminophen [Tylenol .Regular Strength -] 650 mg PO Q4H PRN #0 tablet Aspirin [ASA -] 81 mg PO DAILY tab.chew 08/02/16 Digoxin [Lanoxin -] 0.125 mg PO DAILY tablet 08/02/16 Folic Acid - 1 mg PO DAILY tablet 08/02/16 Rivaroxaban [Xarelto -] 20 mg PO DAILY tablet 08/02/16 Docusate Sodium [Colace -] 100 mg PO DAILY 12/21/16 Fluoxetine HCl [Prozac -] 40 mg PO DAILY 12/21/16 Furosemide [Lasix -] 20 mg PO DAILY 12/21/16 Hydralazine HCl [Apresoline -] 25 mg PO TID 12/21/16 Isosorbide Dinitrate [Isordil -] 20 mg PO DAILY 12/21/16 Losartan Potassium [Cozaar -] 50 mg PO DAILY 12/21/16 Metoprolol Succinate [Toprol Xl -] 25 mg PO DAILY 12/21/16 Nitroglycerin [Nitrostat] 0.4 mg SL PRN PRN 12/21/16 Pantoprazole Sodium [Protonix] 40 mg PO DAILY 12/21/16 Trazodone HCl [Desyrel -] 100 mg PO HS 12/21/16 Cardiac Specific PMH - Complaint Specific PMHX Pacemaker: Yes (R CHEST WALL STATES CHECKED LAST MONTH) <Dwain Mcdermott - Last Filed: 12/22/16 16:17> Review of Systems <Dwain Mcdermott - Last Filed: 12/22/16 16:17> <Liborio Vicente - Last Filed: 12/22/16 21:19> - Review of Systems Able to Perform ROS?: Yes <Shea Mckeon - Last Filed: 12/24/16 19:19> - Review of Systems Comments:: GENERAL/CONSTITUTIONAL: No fever or chills. No weakness. HEAD, EYES, EARS, NOSE AND THROAT: No change in vision. No ear pain or discharge. No sore throat. CARDIOVASCULAR: +Chest pain. No shortness of breath. RESPIRATORY: No cough, wheezing, or hemoptysis. GASTROINTESTINAL: No nausea, vomiting, diarrhea or constipation. GENITOURINARY: No dysuria, frequency, or change in urination. MUSCULOSKELETAL: No joint or muscle swelling or pain. No neck or back pain. SKIN: No rash NEUROLOGIC: No headache, vertigo, loss of consciousness, or change in strength/ sensation. ENDOCRINE: No increased thirst. No abnormal weight change. HEMATOLOGIC/LYMPHATIC: No anemia, easy bleeding, or history of blood clots. ALLERGIC/IMMUNOLOGIC: No hives or skin allergy. (Shea Mckeon) *Physical Exam <Dwain Mcdermott - Last Filed: 12/22/16 16:17> <Liborio Vicente - Last Filed: 12/22/16 21:19> <Shea Mckeon - Last Filed: 12/24/16 19:19> - Vital Signs Last Vital Signs Temp Pulse Resp BP Pulse Ox 98 F 61 19 130/63 100 12/22/16 17:08 12/22/16 17:08 12/22/16 17:08 12/22/16 17:08 12/22/16 17:08 - Physical Exam Comments: GENERAL: Awake, alert, and fully oriented, in no acute distress HEAD: No signs of trauma EYES: PERRLA, EOMI, sclera anicteric, conjunctiva clear ENT: Auricles normal inspection, hearing grossly normal, nares patent, oropharynx clear without exudates. Moist mucosa NECK: Normal ROM, supple, no lymphadenopathy, JVD, or masses LUNGS: Breath sounds equal, clear to auscultation bilaterally. No wheezes, and no crackles HEART: Regular rate and rhythm, normal S1 and S2, no murmurs, rubs or gallops ABDOMEN: Soft, nontender, normoactive bowel sounds. No guarding, no rebound. No masses EXTREMITIES: Normal range of motion, no edema. No clubbing or cyanosis. No cords, erythema, or tenderness NEUROLOGICAL: Cranial nerves II through XII grossly intact. Normal speech, normal gait SKIN: Warm, Dry, normal turgor, no rashes or lesions noted. (Shea Mckeon) ED Treatment Course - LABORATORY CBC & Chemistry Diagram: 12/22/16 14:54 12/22/16 14:54 <Dwain Mcdermott - Last Filed: 12/22/16 16:17> - LABORATORY CBC & Chemistry Diagram: 12/22/16 14:54 12/22/16 14:54 <Liborio Vicente - Last Filed: 12/22/16 21:19> - LABORATORY CBC & Chemistry Diagram: 12/22/16 14:54 12/22/16 14:54 <Shea Mckeon - Last Filed: 12/24/16 19:19> - ADDITIONAL ORDERS Additional order review: 12/22/16 14:54 RBC 3.58 L MCV 88.4 MCHC 32.9 RDW 16.6 H D MPV 9.0 Neutrophils % 38.9 L Lymphocytes % 51.5 H Monocytes % 8.6 Eosinophils % 0.6 Basophils % 0.4 - Medications Given in the ED: ED Medications Discontinued Medications Generic Name Dose Route Start Last Admin Trade Name Freq PRN Reason Stop Dose Admin Acetaminophen 1,000 mg 12/22/16 15:05 12/22/16 17:02 Tylenol - PO 12/22/16 15:06 1,000 mg ONCE ONE Administration Aspirin 162 mg 12/22/16 14:52 12/22/16 17:41 Asa - PO 12/22/16 14:53 Not Given ONCE ONE Ondansetron HCl 4 mg 12/22/16 14:58 12/22/16 17:02 Zofran Odt - SL 12/22/16 14:59 4 mg ONCE ONE Administration Medical Decision Making <Dwain Mcdermott - Last Filed: 12/22/16 16:17> <Liborio Vicente - Last Filed: 12/22/16 21:19> <Shea Mckeon - Last Filed: 12/24/16 19:19> - Medical Decision Making 12/22/16 15:17 56 yo F with significant PMHx of CHF, HTN , HLD, s/p ICD and cocaine abuse presents with 2 hr history of chest pain.Will get EKG, trops,cbc, and CMP. Pain control and nitro prn 12/22/16 16:18 First set of troponin's negative. (Dwain Mcdermott) 12/22/16 21:19 pt feelin gimproved cp free trops neg x 2 no sig change on ekg will dc back to [facility] (Liborio Vicente) *DC/Admit/Observation/Transfer <Dwain Mcdermott - Last Filed: 12/22/16 16:17> - Discharge Dispostion Admit: No <Liborio Vicente - Last Filed: 12/22/16 21:19> <Shea Mckeon - Last Filed: 12/24/16 19:19> Diagnosis at time of Disposition: Chest pain Qualifiers: Chest pain type: unspecified Qualified Code(s): R07.9 - Chest pain, unspecified - Discharge Dispostion Disposition: I.P. ALCOHOL/SUBS ABUSE REHAB - Referrals Referrals: Rizwana Mustafa MD [Primary Care Provider] - - Patient Instructions Printed Discharge Instructions: DI for Chest Pain Additional Instructions: Return to the emergency department immediately with ANY new, persistent or worsening symptoms. You MUST call and follow up with your doctor tomorrow for further evaluation of your symptoms. Results were discussed with you. Please make sure your doctor reviews the results of your emergency evaluation. If you had any xrays during your visit, it was read preliminarily by myself, a Radiologist will review it and if there are any additional findings we will call you. Print Language: POLISH
[2016-12-22 15:07] LABS: BASOPHIL 0.4 % (0-2.0); EOSINOPHIL 0.6 % (0-4.5); MCH 29.1 pg (25.7-33.7); MCHC 32.9 g/dl (32.0-36.0); MEAN CELL VOLUME 88.4 fl (80-96); NEUTROPHILS 38.9 % (42.8-82.8); PLATELET COUNT 207 K/MM3 (134-434); RDW 16.6 % (11.6-15.6); WHITE BLOOD COUNT 3.3 K/mm3 (4.0-10.0)
[2016-12-22 15:29] LABS: INR 1.72 (0.82-1.09); PROTHROMBIN TIME (PATIENT) 19.1 SEC (9.98-11.88)
[2016-12-22 15:48] LABS: ALBUMIN 3.2 g/dl (3.4-5.0); ANION GAP 10 (8-16); BILIRUBIN,TOTAL 0.3 mg/dL (0.2-1.0); CALCIUM 8.5 mg/dL (8.5-10.1); CO2 28 mmol/L (21-32); CREATININE 0.8 mg/dL (0.55-1.02); GLUCOSE,RANDOM 102 mg/dL (74-106); MAGNESIUM 1.7 mg/dL (1.8-2.4); SGOT/AST 13 U/L (15-37); SGPT/ALT 15 U/L (12-78); TOT PROT 6.6 g/dl (6.4-8.2)
[2016-12-22 15:51] LABS: ALK PHOS 46 U/L (45-117); TROPONIN I < 0.02 ng/ml (0.00-0.05)
--- NOTE | 2016-12-22 16:18 | EKG ---
Test Reason : Blood Pressure : / mmHG Vent. Rate : 060 BPM Atrial Rate : 060 BPM P-R Int : 220 ms QRS Dur : 118 ms QT Int : 440 ms P-R-T Axes : 057 -29 122 degrees QTc Int : 440 ms Atrial-paced rhythm with prolonged AV conduction NON-SPECIFIC INTRA-VENTRICULAR CONDUCTION DELAY T WAVE ABNORMALITY, CONSIDER LATERAL ISCHEMIA ABNORMAL ECG WHEN COMPARED WITH ECG OF 22-DEC-2016 10:08, NON-SPECIFIC INTRA-VENTRICULAR CONDUCTION DELAY HAS REPLACED INCOMPLETE LEFT BUNDLE BRANCH BLOCK Confirmed by DENAE BEACH MD ([id number]) on 12/22/2016 4:17:59 PM Referred By: Confirmed By:DENAE BEACH MD
[2016-12-22 17:08] VITALS: BP 130/63; PULSE 61; TEMP 98
--- NOTE | 2016-12-23 17:16 | EKG ---
Test Reason : Blood Pressure : / mmHG Vent. Rate : 060 BPM Atrial Rate : 060 BPM P-R Int : 250 ms QRS Dur : 112 ms QT Int : 448 ms P-R-T Axes : 063 034 117 degrees QTc Int : 448 ms Atrial-paced rhythm with prolonged AV conduction T WAVE ABNORMALITY, CONSIDER LATERAL ISCHEMIA ABNORMAL ECG WHEN COMPARED WITH ECG OF 22-DEC-2016 13:49, NO SIGNIFICANT CHANGE WAS FOUND Confirmed by DENAE BEACH MD ([id number]) on 12/23/2016 5:16:21 PM Referred By: Confirmed By:DENAE BEACH MD
== END | disposition other institution (70) ==
LOC: JER 13:37
DX: R07.9 Chest pain, unspecified (principal); I10 Essential (primary) hypertension; I50.9 Heart failure, unspecified; E78.5 Hyperlipidemia, unspecified; F14.20 Cocaine dependence, uncomplicated; F10.10 Alcohol abuse, uncomplicated; F17.210 Nicotine dependence, cigarettes, uncomplicated
CPT/HCPCS: 36415; 80053; 82550; 83735; 84484; 85025; 85610; 93005; 93010; 99284-25

== ENCOUNTER 2016-12-30 11:43 | Observation (INO) | payer OTHER ==
--- NOTE | 2016-12-30 12:14 | PDOC ---
History of Present Illness - General Chief Complaint: Chest Pain Stated Complaint: CHEST PAIN History Source: Patient Exam Limitations: No Limitations - History of Present Illness Initial Comments: 56 yo F from [facility] with h/o cocaine abuse, systolic CHF (EF 18%, s/p ICD), HTN and HLD BIBEMS due to chest pain x 2 hours. The pain is still active, substernal, pressure-like, 10/10, radiates to L arm and back, worsened with activity, intermittent, associated with n/v and sob. Patient stated she has chest pain at rest and with activities but her stress tests and cath x 2 were negative. She denies recent cocaine use, abd pain, headache, fever, chills and urinary or bowel symptom. Presenting Symptoms: Chest Pain, Dizziness, Nausea, Short of Breath, Vomiting Timing/Duration: reports: intermittent Severity/Quality: reports: severe Location: reports: substernal Chest Pain Radiation: reports: shoulders, back Activities at Onset: reports: exertion, rest Prior Chest Pain/Cardiac Workup: reports: Cardiac Cath, Stress Test Past History - Travel Traveled outside of the country in the last 30 days: No Close contact w/someone who was outside of country & ill: No - Past Medical History Allergies/Adverse Reactions: Allergies Allergy/AdvReac Type Severity Reaction Status Date / Time LARA Inhibitors Allergy Verified 12/30/16 13:00 enalaprilat dihydrate Allergy Verified 12/30/16 13:00 [From Vasotec] shellfish derived Allergy Verified 12/30/16 13:00 Home Medications: Ambulatory Orders Albuterol Sulfate Inhaler - [Ventolin HFA Inhaler -] 2 inh IH Q4H PRN 01/09/13 Aripiprazole [Abilify -] 20 mg PO DAILY 01/09/13 Salmeterol/Fluticasone [Advair 250Mcg/50Mcg -] 1 inh IH BID 01/09/13 Spironolactone [Aldactone -] 50 mg PO DAILY 01/09/13 Atorvastatin Ca [Lipitor] 40 mg PO HS tablet 07/22/15 Amiodarone HCl [Cordarone -] 200 mg PO DAILY 08/01/16 Acetaminophen [Tylenol .Regular Strength -] 650 mg PO Q4H PRN #0 tablet Aspirin [ASA -] 81 mg PO DAILY tab.chew 08/02/16 Digoxin [Lanoxin -] 0.125 mg PO DAILY tablet 08/02/16 Folic Acid - 1 mg PO DAILY tablet 08/02/16 Rivaroxaban [Xarelto -] 20 mg PO DAILY tablet 08/02/16 Docusate Sodium [Colace -] 100 mg PO DAILY 12/21/16 Fluoxetine HCl [Prozac -] 40 mg PO DAILY 12/21/16 Furosemide [Lasix -] 20 mg PO DAILY 12/21/16 Hydralazine HCl [Apresoline -] 25 mg PO TID 12/21/16 Isosorbide Dinitrate [Isordil -] 20 mg PO DAILY 12/21/16 Losartan Potassium [Cozaar -] 50 mg PO DAILY 12/21/16 Metoprolol Succinate [Toprol Xl -] 25 mg PO DAILY 12/21/16 Nitroglycerin [Nitrostat] 0.4 mg SL PRN PRN 12/21/16 Pantoprazole Sodium [Protonix] 40 mg PO DAILY 12/21/16 Trazodone HCl [Desyrel -] 100 mg PO HS 12/21/16 Anemia: No Asthma: Yes Cancer: No Cardiac Disorders: Yes (A FIB) CVA: No COPD: Yes CHF: Yes (ON MEDS) Dementia: No Diabetes: No GI Disorders: No Disorders: No HTN: Yes Hypercholesterolemia: Yes (ON MEDS) Kidney Stones: No Liver Disease: No Suicide Attempt (Hx): No Seizures: No Thyroid Disease: No - Surgical History Abdominal Surgery: No Appendectomy: No Cardiac Surgery: No Cholecystectomy: No Lung Surgery: No Neurologic Surgery: No Orthopedic Surgery: No - Reproductive History PID: No - Immunization History Immunization Up to Date: Yes - Psycho/Social/Smoking Cessation Hx Anxiety: Yes Suicidal Ideation: Yes (X1 NEVER ATTEMPTED.) Smoking History: Former smoker Have you smoked in the past 12 months: No Number of Cigarettes Smoked Daily: 5 If you are a former smoker, when did you quit?: 3 years Cigars Per Day: 0 Hx Alcohol Use: Yes (VODKA) Drug/Substance Use Hx: Yes (COCAINE) Substance Use Type: Alcohol, Cocaine Hx Substance Use Treatment: Yes Cardiac Specific PMH - Complaint Specific PMHX Pacemaker: Yes (R CHEST WALL STATES CHECKED LAST MONTH) Review of Systems - Review of Systems Able to Perform ROS?: Yes Is the patient limited [place] proficient: No Constitutional: No: Chills, Fever, Weakness HEENTM: No: Blurred Vision Respiratory: Yes: Shortness of Breath, SOB with Exertion, SOB at Rest. No: Cough, Productive cough Cardiac (ROS): Yes: Chest Pain ABD/GI: Yes: Nausea, Vomiting. No: Abdominal Distended, Tarry Stools : No: Dysuria Psychiatric: No: Depression *Physical Exam - Vital Signs Last Vital Signs Temp Pulse Resp BP Pulse Ox 97.4 F L 58 L 17 133/69 99 12/30/16 12:30 12/30/16 16:30 12/30/16 16:30 12/30/16 16:30 12/30/16 16:30 - Physical Exam General Appearance: No: Apparent Distress HEENT: positive: YADIRA Neck: positive: Trachea midline, Supple Respiratory/Chest: positive: Lungs Clear, Normal Breath Sounds Cardiovascular: positive: Regular Rhythm, Regular Rate, S1, S2. negative: Diastolic Murmur, Systolic Murmur, Gallop/S3, Gallop/S4 Gastrointestinal/Abdominal: negative: Tender Extremity: negative: Swelling Neurologic: positive: Fully Oriented, Alert ED Treatment Course - LABORATORY CBC & Chemistry Diagram: 12/30/16 12:50 12/30/16 12:50 - ADDITIONAL ORDERS Additional order review: Laboratory Results 12/30/16 12/30/16 12/30/16 12:50 12:50 11:57 INR 1.83 H D Sodium 140 Potassium 4.0 Chloride 103 Carbon Dioxide 31 Anion Gap 6 L BUN 12 D Creatinine 0.9 Creat Clearance w eGFR > 60 Random Glucose 75 Calcium 8.9 Total Bilirubin 0.4 AST 15 ALT 22 D Alkaline Phosphatase 43 L Creatine Kinase 95 Troponin I < 0.02 Total Protein 7.0 Albumin 3.3 L Opiates Screen Negative Methadone Screen Negative Barbiturate Screen Negative Phencyclidine Screen Negative Ur Amphetamines Screen Negative MDMA (Ecstasy) Screen Negative Benzodiazepines Screen Negative Cocaine Screen Positive U Marijuana (THC) Screen Negative 12/30/16 12:50 RBC 3.62 MCV 89.8 MCHC 31.8 L RDW 16.5 H MPV 8.5 Neutrophils % 33.2 L Lymphocytes % 54.2 H Monocytes % 11.4 H Eosinophils % 0.7 Basophils % 0.5 - Medications Given in the ED: ED Medications Discontinued Medications Generic Name Dose Route Start Last Admin Trade Name Arminda PRN Reason Stop Dose Admin Acetaminophen 650 mg 12/30/16 13:38 12/30/16 14:02 Tylenol - PO 12/30/16 13:39 650 mg ONCE ONE Administration Medical Decision Making - Medical Decision Making 12/30/16 12:34 Frequent prior admissions for chest pain. Will send lab work including troponin and do CXR. 12/30/16 15:36 Tox screen is positive for cocaine use, likely the cause of her chest pain. 12/30/16 18:38 Repeat troponin pending, no acute change on repeat EKG, pt c/o chest pain again. *DC/Admit/Observation/Transfer Diagnosis at time of Disposition: Cocaine abuse - Discharge Dispostion Admit: Yes
--- NOTE | 2016-12-30 12:24 | PDOC ---
Attending Attestation - Resident Resident Name: JordonWolf - ED Attending Attestation I have performed the following: I have examined & evaluated the patient, The case was reviewed & discussed with the resident, I agree w/resident's findings & plan, Exceptions are as noted - HPI HPI: 56 yo F history cocaine use, cardiomyopathy with AICD presents with chest pain x1 day. Pain is substernal, nonradiating. No associated sweating, nausea, vomiting. She has had the same pain in the past. She has previously had two cardiac caths that were negative. Most recent cath was in July of last year. She is currently in detox, stating her last cocaine use was 12/21. She was admitted to [place] from 12/21-12/23 before she was referred to [facility] for detox. She states she did not have a cath or stress test while she was there. Poor historian. - Physicial Exam PE: GENERAL: Awake, alert, and fully oriented, in no acute distress HEAD: No signs of trauma EYES: PERRLA, EOMI, sclera anicteric, conjunctiva clear ENT: Auricles normal inspection, hearing grossly normal, nares patent, oropharynx clear without exudates. Moist mucosa NECK: Normal ROM, supple, no lymphadenopathy, JVD, or masses LUNGS: Breath sounds equal, clear to auscultation bilaterally. No wheezes, and no crackles HEART: Regular rate and rhythm, normal S1 and S2, no murmurs, rubs or gallops ABDOMEN: Soft, nontender, normoactive bowel sounds. No guarding, no rebound. No masses EXTREMITIES: Normal range of motion, no edema. No clubbing or cyanosis. No cords, erythema, or tenderness NEUROLOGICAL: Cranial nerves II through XII grossly intact. Normal speech, normal gait SKIN: Warm, Dry, normal turgor, no rashes or lesions noted. - Medical Decision Making Patient with history cocaine use, cardiomyopathy. Will obtain labs/CE, CXR, and EKG. If UTox positive for cocaine, will admit for chest pain.
[2016-12-30 13:03] VITALS: BMI 33.4
[2016-12-30 13:03] LABS: BASOPHIL 0.5 % (0-2.0); EOSINOPHIL 0.7 % (0-4.5); MCH 28.6 pg (25.7-33.7); MCHC 31.8 g/dl (32.0-36.0); MEAN CELL VOLUME 89.8 fl (80-96); MEAN PLT VOLUME 8.5 fl (7.5-11.1); NEUTROPHILS 33.2 % (42.8-82.8); PLATELET COUNT 212 K/MM3 (134-434); RDW 16.5 % (11.6-15.6); WHITE BLOOD COUNT 3.2 K/mm3 (4.0-10.0)
[2016-12-30 13:20] LABS: INR 1.83 (0.82-1.09); PROTHROMBIN TIME (PATIENT) 20.4 SEC (9.98-11.88)
[2016-12-30 13:30] LABS: ALBUMIN 3.3 g/dl (3.4-5.0); ANION GAP 6 (8-16); BILIRUBIN,TOTAL 0.4 mg/dL (0.2-1.0); CALCIUM 8.9 mg/dL (8.5-10.1); CO2 31 mmol/L (21-32); COCKROFT - GAULT 105.9185; CREATININE 0.9 mg/dL (0.55-1.02); GLUCOSE,RANDOM 75 mg/dL (74-106); SGOT/AST 15 U/L (15-37); SGPT/ALT 22 U/L (12-78)
[2016-12-30 13:34] LABS: ALK PHOS 43 U/L (45-117); TROPONIN I < 0.02 ng/ml (0.00-0.05)
[2016-12-30] MEDS ORDERED: ACETAMINOPHEN 325 MG TABLET (FP) PO ONE (13:38)
--- NOTE | 2016-12-30 14:09 | EKG ---
Test Reason : Blood Pressure : / mmHG Vent. Rate : 060 BPM Atrial Rate : 060 BPM P-R Int : 228 ms QRS Dur : 112 ms QT Int : 438 ms P-R-T Axes : 009 -23 071 degrees QTc Int : 438 ms ATRIAL PACING WITH WITH 1ST DEGREE A-V BLOCK NON-SPECIFIC INTRA-VENTRICULAR CONDUCTION DELAY NONSPECIFIC T WAVE ABNORMALITY ABNORMAL ECG WHEN COMPARED WITH ECG OF 30-DEC-2016 09:09, ELECTRONIC ATRIAL PACEMAKER HAS REPLACED SINUS RHYTHM CLINICAL CORRELATION IS RECOMMENDED Confirmed by NIRMAL WESLEY MD ([id number]) on 12/30/2016 2:08:28 PM Referred By: Confirmed By:NIRMAL WESLEY MD
[2016-12-30 15:19] LABS: URINE MARIJUANA THC NEGATIVE ng/ml (CUTOFF=50)
[2016-12-30 18:50] LABS: TROPONIN I < 0.02 ng/ml (0.00-0.05)
--- NOTE | 2016-12-30 19:59 | HP ---
CHIEF COMPLAINT: chest pain PCP: [facility] Supervisor: Dr. Mariella Aaron [facility] HISTORY OF PRESENT ILLNESS: 56 yr old woman with afib on xarelto, CAD s/p cath x2, CHF, HTN, HLD, hx of NH, defibrillator placement, COPD on home oxygen, polysubstance abuse, depression, referred from [facility] for chest pain. The pain started around 10AM this morning, 9/10 intensity, substernal-left side of chest radiating to her left arm , was continuous, nonpositional without alleviating/exacerbating factors associated with sob. The pain decreased to 6/10 in ED and feels more comfortable now. Pain was similar to when she had an NH 2 yrs ago. States her previous cardiac cath in 2012 showed clear arteries. Saw her aitchbone breaker on 12/18, had her device interrogated and was told everything was in perfect order. Has been in rehab since 12/21. Son recently (was mugged and killed) two weeks ago that made her depressed recently. For past two week she has been experiencing gait instability, after walking several feet she has lightheadedness which improves on its own. Denies cough, abdominal pain, headache, dizziness, fever, n/v, constipation/ diarrhea, LE edema, any strenous activity, falls, syncope. ER course was notable for: (1) EKG, Trop x3 negative Recent Travel: none PAST MEDICAL HISTORY: CHF - last echo 07/2016; moderately to severely reduced LV function HTN HLD Afib on xarelto PAST SURGICAL HISTORY: AICD placement 2011 Social History: Smoking: denies smoking cigarrettes Alcohol: daily, last drink 12/20/2016 Drugs: cocaine - smokes, last use 12/20/2016 Family History: Allergies LARA Inhibitors Allergy (Verified 12/30/16 13:00) - angioedema enalaprilat dihydrate [From Vasotec] Allergy (Verified 12/30/16 13:00) shellfish derived Allergy (Verified 12/30/16 13:00) HOME MEDICATIONS: Home Medications Medication Instructions Recorded Albuterol Sulfate Inhaler - 2 inh IH Q4H PRN 01/09/13 [Ventolin HFA Inhaler -] Aripiprazole [Abilify -] 20 mg PO DAILY 01/09/13 Salmeterol/Fluticasone [Advair 1 inh IH BID 01/09/13 250Mcg/50Mcg -] Spironolactone [Aldactone -] 50 mg PO DAILY 01/09/13 Atorvastatin Ca [Lipitor] 40 mg PO HS tablet 07/22/15 Amiodarone HCl [Cordarone -] 200 mg PO DAILY 08/01/16 Acetaminophen [Tylenol .Regular 650 mg PO Q4H PRN #0 tablet 08/02/16 Strength -] Aspirin [ASA -] 81 mg PO DAILY tab.chew 08/02/16 Digoxin [Lanoxin -] 0.125 mg PO DAILY tablet 08/02/16 Folic Acid - 1 mg PO DAILY tablet 08/02/16 Rivaroxaban [Xarelto -] 20 mg PO DAILY tablet 08/02/16 Docusate Sodium [Colace -] 100 mg PO DAILY 12/21/16 Fluoxetine HCl [Prozac -] 40 mg PO DAILY 12/21/16 Furosemide [Lasix -] 20 mg PO DAILY 12/21/16 Hydralazine HCl [Apresoline -] 25 mg PO TID 12/21/16 Isosorbide Dinitrate [Isordil -] 20 mg PO DAILY 12/21/16 Losartan Potassium [Cozaar -] 50 mg PO DAILY 12/21/16 Metoprolol Succinate [Toprol Xl -] 25 mg PO DAILY 12/21/16 Nitroglycerin [Nitrostat] 0.4 mg SL PRN PRN 12/21/16 Pantoprazole Sodium [Protonix] 40 mg PO DAILY 12/21/16 Trazodone HCl [Desyrel -] 100 mg PO HS 12/21/16 REVIEW OF SYSTEMS CONSTITUTIONAL: Absent: fever, chills, diaphoresis, generalized weakness, malaise, loss of appetite, weight change HEENT: Absent: rhinorrhea, nasal congestion, throat pain, throat swelling, difficulty swallowing, mouth swelling, ear pain, eye pain, visual changes CARDIOVASCULAR: Present: chest pain, Absent: syncope, palpitations, irregular heart rate, lightheadedness, peripheral edema RESPIRATORY: Absent: cough, shortness of breath, dyspnea with exertion, orthopnea, wheezing, stridor, hemoptysis GASTROINTESTINAL: Absent: abdominal pain, abdominal distension, nausea, vomiting, diarrhea, constipation, melena, hematochezia GENITOURINARY: Absent: dysuria, frequency, urgency, hesitancy, hematuria, flank pain, genital pain MUSCULOSKELETAL: Absent: myalgia, arthralgia, joint swelling, back pain, neck pain SKIN: Absent: rash, itching, pallor HEMATOLOGIC/IMMUNOLOGIC: Absent: easy bleeding, easy bruising, lymphadenopathy, frequent infections ENDOCRINE: Absent: unexplained weight gain, unexplained weight loss, heat intolerance, cold intolerance NEUROLOGIC: Absent: headache, focal weakness or paresthesias, dizziness, unsteady gait, seizure, mental status changes, bladder or bowel incontinence PSYCHIATRIC: Absent: anxiety, depression, suicidal or homicidal ideation, hallucinations. PHYSICAL EXAMINATION Vital Signs - 24 hr 12/30/16 16:30 Pulse Rate [ 58 L Apical] Respiratory 17 Rate Blood Pressure 133/69 [Left Arm] O2 Sat by Pulse 99 Oximetry (%) GENERAL: Awake, alert, and fully oriented, in no acute distress. HEAD: Normal with no signs of trauma. EYES: Pupils equal, round and reactive to light, extraocular movements intact, sclera anicteric, conjunctiva clear. No lid lag. EARS, NOSE, THROAT: Ears normal, nares patent, oropharynx clear without exudates. Moist mucous membranes. NECK: Normal range of motion, supple without lymphadenopathy, JVD, or masses. LUNGS: Breath sounds equal, clear to auscultation bilaterally. No wheezes, and no crackles. No accessory muscle use. HEART: Regular rate and rhythm, normal S1 and S2 without murmur, rub or gallop. ABDOMEN: Soft, nontender, not distended, normoactive bowel sounds, no guarding, no rebound, no masses. No hepatomegaly or splenomegaly. MUSCULOSKELETAL: Normal range of motion at all joints. No bony deformities or tenderness. No CVA tenderness. UPPER EXTREMITIES: 2+ pulses, warm, well-perfused. No cyanosis. No clubbing. No peripheral edema. LOWER EXTREMITIES: 2+ pulses, warm, well-perfused. No calf tenderness. No peripheral edema. NEUROLOGICAL: Cranial nerves II-XII intact. Normal speech. Normal gait. PSYCHIATRIC: Cooperative. Good eye contact. Appropriate mood and affect. SKIN: Warm, dry, normal turgor, no rashes or lesions noted, normal capillary refill. Laboratory Results - last 24 hr 12/30/16 18:10 Creatine Kinase 95 Troponin I < 0.02 Laboratory Results - last 24 hr 12/30/16 12/30/16 12/30/16 11:57 12:50 12:50 WBC 3.2 L RBC 3.62 Hgb 10.3 L Hct 32.5 MCV 89.8 MCHC 31.8 L RDW 16.5 H Plt Count 212 MPV 8.5 Neutrophils % 33.2 L Lymphocytes % 54.2 H Monocytes % 11.4 H Eosinophils % 0.7 Basophils % 0.5 INR 1.83 H D Sodium Potassium Chloride Carbon Dioxide Anion Gap BUN Creatinine Creat Clearance w eGFR Random Glucose Calcium Total Bilirubin AST ALT Alkaline Phosphatase Creatine Kinase Troponin I Total Protein Albumin Opiates Screen Negative Methadone Screen Negative Barbiturate Screen Negative Phencyclidine Screen Negative Ur Amphetamines Screen Negative MDMA (Ecstasy) Screen Negative Benzodiazepines Screen Negative Cocaine Screen Positive U Marijuana (THC) Screen Negative 12/30/16 12/30/16 12:50 18:10 WBC RBC Hgb Hct MCV MCHC RDW Plt Count MPV Neutrophils % Lymphocytes % Monocytes % Eosinophils % Basophils % INR Sodium 140 Potassium 4.0 Chloride 103 Carbon Dioxide 31 Anion Gap 6 L BUN 12 D Creatinine 0.9 Creat Clearance w eGFR > 60 Random Glucose 75 Calcium 8.9 Total Bilirubin 0.4 AST 15 ALT 22 D Alkaline Phosphatase 43 L Creatine Kinase 95 95 Troponin I < 0.02 < 0.02 Total Protein 7.0 Albumin 3.3 L Opiates Screen Methadone Screen Barbiturate Screen Phencyclidine Screen Ur Amphetamines Screen MDMA (Ecstasy) Screen Benzodiazepines Screen Cocaine Screen U Marijuana (THC) Screen Active Medications Acetaminophen (Tylenol -) 650 mg PO Q4H PRN PRN Reason: FEVER OR PAIN Albuterol Sulfate (Ventolin Hfa Inhaler -) 2 puff IH Q6H PRN PRN Reason: SHORTNESS OF BREATH Amiodarone HCl (Cordarone -) 200 mg PO DAILY [facility] Aspirin (Asa -) 81 mg PO DAILY [facility] Atorvastatin Calcium (Lipitor -) 40 mg PO HS [facility] Last Admin: 12/30/16 23:00 Dose: 40 mg Budesonide/Formoterol Fumarate (Symbicort 80/4.5mcg -) 2 puff IH BID [facility] Last Admin: 12/30/16 23:13 Dose: Not Given Digoxin (Lanoxin -) 0.125 mg PO DAILY [facility] Fluoxetine HCl (Prozac -) 20 mg PO DAILY [facility] Furosemide (Lasix -) 40 mg PO DAILY [facility] Losartan Potassium (Cozaar -) 50 mg PO DAILY [facility] Rivaroxaban (Xarelto -) 20 mg PO DAILY [facility] Spironolactone (Aldactone -) 50 mg PO DAILY [facility] ASSESSMENT/PLAN: 56 yr old woman with polysubstance abuse and extensive cardiac history presents with chest pain placed on observation. - recent ED visit for chest pain 12/22, trops x2 negative with no acute ischemic changes on EKG, c/o of chest pain on 12/24 and 12/27 at [facility] - no changes on EKG at that time - was transferred to [facility] 08/02/2017 for cardiac cath, obtain report if possible - suspicious for angina/vasospasm vs NH #Chest pain - tropx3 negative, heart score 3, karla 2. - observe in tele - cardiology consult if symptoms reoccur/persist overnight (seen by Dr. Walden in previous admission) - she does not have defibrillator card with her, may to need to have her device be interrogated --- (Called [facility], she has dual chamber ICD placed 12/11/2011, call [phone] in the morning to have a local rep come to hospital to interrogate device) - last echo 07/2016, LV fxn moderately reduced - Avoid beta-blockers due to cocaine use and LARA-I due to angioedema #Polysubstance abuse - was not librium at [facility] according to MAR, please verify with Dr. Tariq Powers in the morning. #Afib- rate controlled, currently in sinus - digoxin 0.125mcg po daily - digoxin level pending - ASA 81mg po qd - xarelto 20mg po qd #CHF - systolic - lasix 40mg po daily - no LE edema, no signs of current exacerbation - daily weight #HLD - lipitor 40mg po HS #HTN - controlled - losartan 50mg po daily - aldactone 50mg po daily #COPD - symbicort BID - ventolin PRN - nasal cannula 2lpm, maintain >90% #Depression - prozac 20mg po qdaily #DVT: on xarelto, encourage ambulation #diet: low sodium Visit type - Emergency Visit Emergency Visit: Yes ED Registration Date: 12/30/16 Care time: The patient presented to the Emergency Department on the above date and was hospitalized for further evaluation of their emergent condition. - New Patient This patient is new to me today: Yes Date on this admission: 12/30/16 - Critical Care Critical Care patient: No
[2016-12-30] MEDS ORDERED: ACETAMINOPHEN 325 MG TABLET (FP) PO PRN (20:20)
[2016-12-30] MEDS ORDERED: ALBUTEROL SO4 6.7 GM HFA INHALER IH PRN (20:20)
--- NOTE | 2016-12-30 20:26 | PN ---
<Christo Sun - Last Filed: 12/30/16 21:24> Teaching Attending Note Name of Resident: Constanza Paz <Gary Bowen - Last Filed: 12/30/16 21:26> Teaching Attending Note ATTENDING PHYSICIAN STATEMENT I saw and evaluated the patient. I reviewed the resident's note and discussed the case with the resident. I agree with the resident's findings and plan as documented. SUBJECTIVE: 56 year old female, with history of nonischemic cardiomyopathy, who presents to the emergency department complaining of mid sternal chest pain 10/10 in intensity that started 2 hours prior to arrival to the hospital. Describes pain as pressure like, constant, radiating to the left arm, associated with shortness of breath and diaphoresis. Currently states that pain subsided in intensity to 6/10. Reports prior episodes of pain like this 2 years ago when she was hospitalized, underwent cardiac catherization "clean coronary arteries" . At that time she was diagnosed with nonischemic cardiomypathy, states her ejection fracture was 18% which led to placement of a defibrillator. Patient presented from rehab facility where she is undergoing detox for cocaine and alcohol abuse since December 21. She reports last use of cocaine and alcohol on December 21. Past medical history: - Nonischemic cardiomyopathy most recent left ventricular systolic function documented as moderately reduced - AFIB - COPD (home O2 2 Liters) - HTN - HLD Surgical History: - Defribillator placement (From [facility]) Family History: - Coronary artery disease Allergies: -Kevin Inhibitors Last Vital Signs Temp Pulse Resp BP Pulse Ox 97.4 F L 58 L 17 133/69 99 12/30/16 12:30 12/30/16 16:30 12/30/16 16:30 12/30/16 16:30 12/30/16 16:30 OBJECTIVE: GENERAL: Awake, alert, and fully oriented, in no acute distress HEENT: Atraumatic. PERRLA, EOMI. Moist mucosa. No JVD LUNGS: No distress, speaks full sentences, clear to auscultation bilaterally HEART: Regular rate and rhythm, normal S1 and S2, no murmurs, rubs or gallops, peripheral pulses normal and equal bilaterally. ABDOMEN: +Reducable umbilical hernia. Soft, nontender, normoactive bowel sounds. No guarding, no rebound. EXTREMITIES: Normal inspection, Normal range of motion, no edema. No clubbing or cyanosis. NEUROLOGICAL: Cranial nerves II through XII grossly intact. Normal speech, normal gait, no focal sensorimotor deficits. 5/5 strength and sensation intact in bilateral upper and lower extremities. SKIN: +Lipoma on the right upper back and 2nd toe of the left foot, soft, nontender and mobile. Warm, Dry, normal turgor, no rashes or lesions noted Laboratory Tests 12/30/16 12/30/16 12/30/16 11:57 12:50 12:50 WBC 3.2 L RBC 3.62 Hgb 10.3 L Hct 32.5 MCV 89.8 MCHC 31.8 L RDW 16.5 H Plt Count 212 MPV 8.5 Neutrophils % 33.2 L Lymphocytes % 54.2 H Monocytes % 11.4 H Eosinophils % 0.7 Basophils % 0.5 INR 1.83 H D Sodium Potassium Chloride Carbon Dioxide Anion Gap BUN Creatinine Creat Clearance w eGFR Random Glucose Calcium Total Bilirubin AST ALT Alkaline Phosphatase Creatine Kinase Troponin I Total Protein Albumin Opiates Screen Negative Methadone Screen Negative Barbiturate Screen Negative Phencyclidine Screen Negative Ur Amphetamines Screen Negative MDMA (Ecstasy) Screen Negative Benzodiazepines Screen Negative Cocaine Screen Positive U Marijuana (THC) Screen Negative 12/30/16 12/30/16 12:50 18:10 WBC RBC Hgb Hct MCV MCHC RDW Plt Count MPV Neutrophils % Lymphocytes % Monocytes % Eosinophils % Basophils % INR Sodium 140 Potassium 4.0 Chloride 103 Carbon Dioxide 31 Anion Gap 6 L BUN 12 D Creatinine 0.9 Creat Clearance w eGFR > 60 Random Glucose 75 Calcium 8.9 Total Bilirubin 0.4 AST 15 ALT 22 D Alkaline Phosphatase 43 L Creatine Kinase 95 95 Troponin I < 0.02 < 0.02 Total Protein 7.0 Albumin 3.3 L Opiates Screen Methadone Screen Barbiturate Screen Phencyclidine Screen Ur Amphetamines Screen MDMA (Ecstasy) Screen Benzodiazepines Screen Cocaine Screen U Marijuana (THC) Screen Echocardiogram 08/01/2016: The left ventricle is grossly normal size Left ventricular systolic function is moderately reduced There is moderate global of the left ventricle There is trace to mild mitral regurgitation Mild tricuspid regurgitation RVSP is normal ASSESSMENT AND PLAN: 1. Chest pain - Rule out acute coronary syndrome. - Serial cardiac enzymes and telemetry. - No beta blockers due to cocaine positive. - No kevin inhibitors due to angio edema - Interrogate defibrillator. - Call cardiology tomorrow. - Continue Aspirin. 2. Atrial fibrillation rare is controlled - Continue Xareltol and amiodarone. - Obtain Digoxin levels. 3. Congestive heart failure, chronic - Moderately reduced systolic function according to most recent echocardiogram. No clinical signs of exacerbation. - Daily fluid restrictions. - Lasix 40 mg PO daily. 4. History of COPD, O2 dependent at home. Stable. - Nebulizers PRN. 5. History of cocaine and alcohol abuse - Continue detox protocol Hospitalized for observation. Documentation prepared by Gary Bowen, acting as medical observer for Christo Sun MD.
[2016-12-30] MEDS: ATORVASTATIN CA 40 MG TABLET (FP) PO SCH (23:00)
[2016-12-30] MEDS ORDERED: ATORVASTATIN CA 40 MG TABLET (FP) ONE (23:09)
[2016-12-30] MEDS: BUDESONIDE/FORMETEROL FUMARATE 80/4.5 mcg INHALER IH SCH (23:13)
[2016-12-31 00:59] LABS: TROPONIN I < 0.02 ng/ml (0.00-0.05)
[2016-12-31 06:00] LABS: DIGOXIN LEVEL 0.2322 ng/ml (0.8-2.0)
--- NOTE | 2016-12-31 09:02 | PN ---
Teaching Attending Note Name of Resident: Jeet Hamilton ATTENDING PHYSICIAN STATEMENT I saw and evaluated the patient. I reviewed the resident's note and discussed the case with the resident. I agree with the resident's findings and plan as documented. Patient presented with chest pain of 06/25, now 02/23. denies any shortness of breath. Patient drinks alcohol and does cocaine. Vital Signs Temperature 97.5 F L 12/31/16 00:47 Pulse Rate 60 12/31/16 00:47 Respiratory Rate 17 12/31/16 00:47 Blood Pressure 107/55 12/31/16 00:47 O2 Sat by Pulse Oximetry (%) 97 12/31/16 00:47 CBCD WBC 3.2 K/mm3 (4.0-10.0) L 12/30/16 12:50 RBC 3.62 M/mm3 (3.60-5.2) 12/30/16 12:50 Hgb 10.3 GM/dL (10.7-15.3) L 12/30/16 12:50 Hct 32.5 % (32.4-45.2) 12/30/16 12:50 MCV 89.8 fl (80-96) 12/30/16 12:50 MCHC 31.8 g/dl (32.0-36.0) L 12/30/16 12:50 RDW 16.5 % (11.6-15.6) H 12/30/16 12:50 Plt Count 212 K/MM3 (134-434) 12/30/16 12:50 MPV 8.5 fl (7.5-11.1) 12/30/16 12:50 CMP Sodium 140 mmol/L (136-145) 12/30/16 12:50 Potassium 4.0 mmol/L (3.5-5.1) 12/30/16 12:50 Chloride 103 mmol/L (98-107) 12/30/16 12:50 Carbon Dioxide 31 mmol/L (21-32) 12/30/16 12:50 Anion Gap 6 (8-16) L 12/30/16 12:50 BUN 12 mg/dL (7-18) D 12/30/16 12:50 Creatinine 0.9 mg/dL (0.55-1.02) 12/30/16 12:50 Creat Clearance w eGFR > 60 (>60) 12/30/16 12:50 Random Glucose 75 mg/dL (74-106) 12/30/16 12:50 Calcium 8.9 mg/dL (8.5-10.1) 12/30/16 12:50 Total Bilirubin 0.4 mg/dL (0.2-1.0) 12/30/16 12:50 AST 15 U/L (15-37) 12/30/16 12:50 ALT 22 U/L (12-78) D 12/30/16 12:50 Alkaline Phosphatase 43 U/L (45-117) L 12/30/16 12:50 Total Protein 7.0 g/dl (6.4-8.2) 12/30/16 12:50 Albumin 3.3 g/dl (3.4-5.0) L 12/30/16 12:50 CARDIAC ENZYMES Creatine Kinase 93 IU/L (26-192) 12/31/16 00:35 Troponin I < 0.02 ng/ml (0.00-0.05) 12/31/16 00:35 Current Medications Generic Name Dose Route Start Last Admin Trade Name Freq PRN Reason Stop Dose Admin Acetaminophen 650 mg 12/30/16 20:20 Tylenol - PO Q4H PRN FEVER OR PAIN Albuterol Sulfate 2 puff 12/30/16 20:20 Ventolin Hfa Inhaler - IH Q6H PRN SHORTNESS OF BREATH Amiodarone HCl 200 mg 12/31/16 10:00 Cordarone - PO DAILY [facility] Aspirin 81 mg 12/31/16 10:00 Asa - PO DAILY [facility] Atorvastatin Calcium 40 mg 12/30/16 22:00 12/30/16 23:00 Lipitor - PO 40 mg HS [facility]ONG Administration Budesonide/Formoterol Fumarate 2 puff 12/30/16 22:00 12/30/16 23:13 Symbicort 80/4.5mcg - IH Not Given BID [facility] Digoxin 0.125 mg 12/31/16 10:00 Lanoxin - PO DAILY [facility] Fluoxetine HCl 20 mg 12/31/16 10:00 Prozac - PO DAILY [facility] Furosemide 40 mg 12/31/16 10:00 Lasix - PO DAILY [facility] Losartan Potassium 50 mg 12/31/16 10:00 Cozaar - PO DAILY [facility] Rivaroxaban 20 mg 12/31/16 10:00 Xarelto - PO DAILY [facility] Spironolactone 50 mg 12/31/16 10:00 Aldactone - PO DAILY [facility] Home Medications Medication Instructions Recorded Albuterol Sulfate Inhaler - 2 inh IH Q4H PRN 01/09/13 [Ventolin HFA Inhaler -] Aripiprazole [Abilify -] 20 mg PO DAILY 01/09/13 Salmeterol/Fluticasone [Advair 1 inh IH BID 01/09/13 250Mcg/50Mcg -] Spironolactone [Aldactone -] 50 mg PO DAILY 01/09/13 Atorvastatin Ca [Lipitor] 40 mg PO HS tablet 07/22/15 Amiodarone HCl [Cordarone -] 200 mg PO DAILY 08/01/16 Acetaminophen [Tylenol .Regular 650 mg PO Q4H PRN #0 tablet 08/02/16 Strength -] Aspirin [ASA -] 81 mg PO DAILY tab.chew 08/02/16 Digoxin [Lanoxin -] 0.125 mg PO DAILY tablet 08/02/16 Folic Acid - 1 mg PO DAILY tablet 08/02/16 Rivaroxaban [Xarelto -] 20 mg PO DAILY tablet 08/02/16 Docusate Sodium [Colace -] 100 mg PO DAILY 12/21/16 Fluoxetine HCl [Prozac -] 40 mg PO DAILY 12/21/16 Furosemide [Lasix -] 20 mg PO DAILY 12/21/16 Hydralazine HCl [Apresoline -] 25 mg PO TID 12/21/16 Isosorbide Dinitrate [Isordil -] 20 mg PO DAILY 12/21/16 Losartan Potassium [Cozaar -] 50 mg PO DAILY 12/21/16 Metoprolol Succinate [Toprol Xl -] 25 mg PO DAILY 12/21/16 Nitroglycerin [Nitrostat] 0.4 mg SL PRN PRN 12/21/16 Pantoprazole Sodium [Protonix] 40 mg PO DAILY 12/21/16 Trazodone HCl [Desyrel -] 100 mg PO HS 12/21/16 Laboratory Tests 12/30/16 12/30/16 12/30/16 11:57 12:50 18:10 Troponin I < 0.02 < 0.02 Digoxin Opiates Screen Negative Cocaine Screen Positive 12/31/16 12/31/16 00:35 05:00 Troponin I < 0.02 Digoxin 0.2322 L Opiates Screen Cocaine Screen CHEST: CTABL HEART: S1S2 positive, dual chamber pacemaker CXR: dual chamber pacemaker on the right side , with large heart Echocardiogram 08/01/2016: The left ventricle is grossly normal size ,Left ventricular systolic function is moderately reduced ,There is trace to mild mitral regurgitation, Mild tricuspid regurgitation ,RVSP is normal ASSESSMENT AND PLAN: 56 year old female, with history of nonischemic cardiomyopathy, who presents to the emergency department complaining of mid sternal chest pain 10/10 in intensity that started 2 hours prior to arrival to the hospital. Describes pain as pressure like, constant, radiating to the left arm, associated with shortness of breath and diaphoresis. # Acute Chest pain - Rule out acute coronary syndrome, Serial cardiac enzymes are negative , No beta blockers due to cocaine positive, No kevin inhibitors due to angio edema , Interrogate of the defibrillator as per cardiology , cardio consult , Continue Aspirin. # Atrial fibrillation rare is controlled Continue Xareltol( INR: 1.83) and amiodarone, digoxin level 0.2322. # Hx of Congestive heart failure Moderately reduced systolic function according to most recent echocardiogram. Daily fluid restrictions, Lasix 40 mg PO daily, patient is allergic to Kevin-I, but on Losartan (ARB) continue # History of COPD, O2 dependent at home. Stable, Nebulizers PRN. # History of cocaine and alcohol abuse with recent use of cocaine , Continue detox protocol consult Manohar tierney. DVT Px: XArelto patient will go back to [facility] for detox this am
[2016-12-31] MEDS: SPIRONOLACTONE 25 MG TABLET (FP) PO SCH (09:43)
[2016-12-31] MEDS: AMIODARONE HCL 200 MG TABLET (FP) PO SCH (09:43)
[2016-12-31] MEDS: ASPIRIN 81 MG CHEWABLE TABLETS PO SCH (09:43)
[2016-12-31] MEDS: RIVAROXABAN 20 MG TABLET PO SCH (09:44)
[2016-12-31] MEDS: DIGOXIN 0.125 MG TABLET (FP) PO SCH (09:44)
[2016-12-31] MEDS: FLUoxetine HCL 20 MG CAPSULE (FP) PO SCH (09:44)
[2016-12-31] MEDS: LOSARTAN POTASSIUM 50 MG TABLET (FP) PO SCH (09:44)
[2016-12-31] MEDS ORDERED: FUROSEMIDE 40 MG TABLET (FP) PO SCH ×2 (10:00→12:48)
[2016-12-31] MEDS ORDERED: RIVAROXABAN 20 MG TABLET PO SCH (10:00)
[2016-12-31] MEDS ORDERED: PT OWN MED DRAWER 7, Y5N ONE (10:38)
[2016-12-31] MEDS: BUDESONIDE/FORMETEROL FUMARATE 80/4.5 mcg INHALER IH SCH ×2 (10:39→21:46)
[2016-12-31 11:14] LABS: FREE T4 1.03 ng/dl (0.76-1.46); THYROID STIMULATING HORMONE 0.68 uIU/ml (0.358-3.74)
--- NOTE | 2016-12-31 12:24 | CON.CARD ---
Consult Consult Specialty:: Cardiology Referred by:: Hospitalist Medicine Reason for Consultation:: Chest pain - History of Present Illness Chief Complaint: Chest pain History of Present Illness: 56 yr old woman with afib on xarelto, CAD s/p cath x3 last in 07/2016 at [facility]- non-obstructive, HTN, HLD, NICM s/p ([employer]) defibrillator placement, COPD on home oxygen, polysubstance abuse including cocaine, depression, referred from [facility] for chest pain associated with mild sob, cocaine positive tox screen, denies palps, near or true syncope, orthopnea, PND, LE edema or ICD discharges, similar presentation 07/2016 in setting of cocaine abuse, cath at [facility] at that time reportedly non-obstructive as well. Saw her professor of legal studies on 12/18 , had her device interrogated and was told everything was in perfect order. Has been in rehab since 12/21, last cocaine use then. - History Source History Provided By: Patient Limitations to Obtaining History: No Limitations - Past Medical History Cardio/Vascular: Yes: AFIB, CHF, HTN, Hyperlipdemia, Other (NICM s/p ICD) Pulmonary: Yes: COPD, Other (active smoker) ...LMP: 01/05/09 ...: No Psych: Yes: Addictions, Depression - Past Surgical History Past Surgical History: Yes: AICD - Alcohol/Substance Use Hx Alcohol Use: Yes (VODKA) History of Substance Use: reports: Cocaine - Smoking History Smoking history: Former smoker Have you smoked in the past 12 months: No Aproximately how many cigarettes per day: 5 If you are a former smoker, when did you quit?: 3 years - Social History Usual Living Arrangement: With Spouse Occupation: unemployed Home Medications - Allergies Allergies/Adverse Reactions: Allergies Allergy/AdvReac Type Severity Reaction Status Date / Time LARA Inhibitors Allergy Verified 12/30/16 13:00 enalaprilat dihydrate Allergy Verified 12/30/16 13:00 [From Vasotec] shellfish derived Allergy Verified 12/30/16 13:00 - Home Medications Home Medications: Ambulatory Orders Albuterol Sulfate Inhaler - [Ventolin HFA Inhaler -] 2 inh IH Q4H PRN 01/09/13 Aripiprazole [Abilify -] 20 mg PO DAILY 01/09/13 Salmeterol/Fluticasone [Advair 250Mcg/50Mcg -] 1 inh IH BID 01/09/13 Spironolactone [Aldactone -] 50 mg PO DAILY 01/09/13 Atorvastatin Ca [Lipitor] 40 mg PO HS tablet 07/22/15 Amiodarone HCl [Cordarone -] 200 mg PO DAILY 08/01/16 Acetaminophen [Tylenol .Regular Strength -] 650 mg PO Q4H PRN #0 tablet Aspirin [ASA -] 81 mg PO DAILY tab.chew 08/02/16 Digoxin [Lanoxin -] 0.125 mg PO DAILY tablet 08/02/16 Folic Acid - 1 mg PO DAILY tablet 08/02/16 Rivaroxaban [Xarelto -] 20 mg PO DAILY tablet 08/02/16 Docusate Sodium [Colace -] 100 mg PO DAILY 12/21/16 Fluoxetine HCl [Prozac -] 40 mg PO DAILY 12/21/16 Furosemide [Lasix -] 20 mg PO DAILY 12/21/16 Hydralazine HCl [Apresoline -] 25 mg PO TID 12/21/16 Isosorbide Dinitrate [Isordil -] 20 mg PO DAILY 12/21/16 Losartan Potassium [Cozaar -] 50 mg PO DAILY 12/21/16 Metoprolol Succinate [Toprol Xl -] 25 mg PO DAILY 12/21/16 Nitroglycerin [Nitrostat] 0.4 mg SL PRN PRN 12/21/16 Pantoprazole Sodium [Protonix] 40 mg PO DAILY 12/21/16 Trazodone HCl [Desyrel -] 100 mg PO HS 12/21/16 Family Disease History - Family Disease History Family Disease History: Diabetes: Father, Heart Disease: Mother Review of Systems - Review of Systems Cardiovascular: reports: Chest Pain, Shortness of Breath Vital Signs: Vital Signs Temperature 98 F 12/31/16 10:00 Pulse Rate 60 12/31/16 10:00 Respiratory Rate 18 12/31/16 10:00 Blood Pressure 116/58 12/31/16 10:00 O2 Sat by Pulse Oximetry (%) 97 12/31/16 00:47 Constitutional: Yes: No Distress, Calm Neck: Yes: Supple Respiratory: Yes: Regular, CTA Bilaterally Gastrointestinal: Yes: Normal Bowel Sounds, Hyperactive Bowel Sounds Cardiovascular: Yes: Regular Rate and Rhythm JVD: No Carotid Bruit: No Heart Sounds: Yes: S1, S2 Murmur: Yes: Systolic Murmur, Grade 1 Edema: No - Other Data Labs, Other Data: INR, PTT INR 1.83 (0.82-1.09) H D 12/30/16 12:50 Troponin, BNP 12/30/16 12/31/16 18:10 00:35 Troponin I < 0.02 < 0.02 Troponin, BNP 12/30/16 12/31/16 18:10 00:35 Troponin I < 0.02 < 0.02 A-paced @ 60 with ILBBB nonspec T wave changes Ejection Fraction %: LVEF < 40 % Problem List - Problems (1) Cocaine abuse Code(s): F14.10 - COCAINE ABUSE, UNCOMPLICATED (2) AICD (automatic cardioverter/defibrillator) present Code(s): Z95.810 - PRESENCE OF AUTOMATIC (IMPLANTABLE) CARDIAC DEFIBRILLATOR (3) Atrial fibrillation Code(s): I48.91 - UNSPECIFIED ATRIAL FIBRILLATION Qualifiers: Atrial fibrillation type: paroxysmal Qualified Code(s): I48.0 - Paroxysmal atrial fibrillation (4) COPD (chronic obstructive pulmonary disease) Code(s): J44.9 - CHRONIC OBSTRUCTIVE PULMONARY DISEASE, UNSPECIFIED Qualifiers : COPD type: unspecified COPD Qualified Code(s): J44.9 - Chronic obstructive pulmonary disease, unspecified (5) Chest pain Code(s): R07.9 - CHEST PAIN, UNSPECIFIED Qualifiers: Chest pain type: unspecified Qualified Code(s): R07.9 - Chest pain, unspecified (6) Chronic heart failure Code(s): I50.9 - HEART FAILURE, UNSPECIFIED Qualifiers: Heart failure type: systolic Qualified Code(s): I50.22 - Chronic systolic (congestive) heart failure (7) Hyperlipidemia Code(s): E78.5 - HYPERLIPIDEMIA, UNSPECIFIED Qualifiers: Hyperlipidemia type: pure hypercholesterolemia Qualified Code(s): E78.00 - Pure hypercholesterolemia, unspecified; E78.0 - Pure hypercholesterolemia (8) Hypertension Code(s): I10 - ESSENTIAL (PRIMARY) HYPERTENSION Qualifiers: Hypertension type: essential hypertension Qualified Code(s): I10 - Essential (primary) hypertension Assessment/Plan Echocardiogram 08/01/2016: The left ventricle is grossly normal size Left ventricular systolic function is moderately reduced There is moderate global of the left ventricle There is trace to mild mitral regurgitation Mild tricuspid regurgitation RVSP is normal Assessment 1. Probable cocaine induced chest pain/ suspected vasopasm 2. Moderate NICM s/p ICD 3. Cocaine abuse 4. ETOH abuse 5. PAF->SR on NOAC 6. COPD Plan: 1. Ruled out for NC 2. Continue ASA 81 qd, Xarelto 20 qpm, Aldactone 50 qd, decrease Lasix 20 qd, Lipitor 40 qd, Dig 0.125 qd, Amio 200 qd, add Norvasc 2.5 qd with uptitration as tolerated for cocaine chest pain/vasospasm 3. Call [facility] laboratory associate for most recent cath results from 07/2016 4. Smoking cessation, abstinence from toxic behaviors, BD, d/c planning to [facility] for detox 5. Thank you for consultative opportunity
[2016-12-31] MEDS: amLODIPine BESYLATE 2.5 MG TABLET (FP) PO SCH (14:18)
--- NOTE | 2016-12-31 14:46 | MSN ---
Progress Note (SOAP) - Subjective Chief Complaint: Chest pain History of Present Illness: 56 y/o female w PMHx of Defibrillator placement, CHF, Afib, CAD, COPD, CA, and polysubstance abuse presented from [facility] with the chief complaint of chest pain. Pt is alert, cooperative, sitting upright in bed. Pt states sternal pain is improving, 6/10 today. Nothing makes it better or worse, no tenderness to palpation. Denies N/V/F/C/Abd pain/HAYES/hematochezia/syncope. - Current Medications Current Medications: Active Medications Acetaminophen (Tylenol -) 650 mg PO Q4H PRN PRN Reason: FEVER OR PAIN Albuterol Sulfate (Ventolin Hfa Inhaler -) 2 puff IH Q6H PRN PRN Reason: SHORTNESS OF BREATH Amiodarone HCl (Cordarone -) 200 mg PO DAILY [facility] Last Admin: 12/31/16 09:43 Dose: 200 mg Amlodipine Besylate (Norvasc -) 2.5 mg PO DAILY [facility] Last Admin: 12/31/16 14:18 Dose: 2.5 mg Aspirin (Asa -) 81 mg PO DAILY [facility] Last Admin: 12/31/16 09:43 Dose: 81 mg Atorvastatin Calcium (Lipitor -) 40 mg PO HS [facility] Last Admin: 12/30/16 23:00 Dose: 40 mg Budesonide/Formoterol Fumarate (Symbicort 80/4.5mcg -) 2 puff IH BID [facility] Last Admin: 12/31/16 10:39 Dose: 2 inh Digoxin (Lanoxin -) 0.125 mg PO DAILY [facility] Last Admin: 12/31/16 09:44 Dose: 0.125 mg Fluoxetine HCl (Prozac -) 20 mg PO DAILY [facility] Last Admin: 12/31/16 09:44 Dose: 20 mg Furosemide (Lasix -) 20 mg PO DAILY [facility] Losartan Potassium (Cozaar -) 50 mg PO DAILY [facility] Last Admin: 12/31/16 09:44 Dose: 50 mg Rivaroxaban (Xarelto -) 20 mg PO DAILY [facility] Last Admin: 12/31/16 09:44 Dose: 20 mg Spironolactone (Aldactone -) 50 mg PO DAILY [facility] Last Admin: 12/31/16 09:43 Dose: 50 mg - Objective Vital Signs: Vital Signs Temperature 98 F 12/31/16 10:00 Pulse Rate 64 12/31/16 13:30 Respiratory Rate 18 12/31/16 10:00 Blood Pressure 101/48 12/31/16 13:30 O2 Sat by Pulse Oximetry (%) 96 12/31/16 08:00 Constitutional: Yes: No Distress, Calm Eyes: Yes: EOM Intact, PERRL HENT: Yes: Atraumatic, Normocephalic Neck: Yes: Supple, Trachea Midline Cardiovascular: Yes: Regular Rate and Rhythm Respiratory: Yes: Regular, CTA Bilaterally Gastrointestinal: Yes: Normal Bowel Sounds, Soft Peripheral Pulses WNL: Yes Peripheral Pulses: Left Radial: 2+, Right Radial: 2+, Left Doralis Pedis: 2+, Right Dorsalis Pedis: 2+ Edema: No Neurological: Yes: Alert, Oriented Psychiatric: Yes: Alert, Oriented Labs Lab Results: CBC,CMP WBC 3.2 K/mm3 (4.0-10.0) L 12/30/16 12:50 RBC 3.62 M/mm3 (3.60-5.2) 12/30/16 12:50 Hgb 10.3 GM/dL (10.7-15.3) L 12/30/16 12:50 Hct 32.5 % (32.4-45.2) 12/30/16 12:50 MCV 89.8 fl (80-96) 12/30/16 12:50 MCHC 31.8 g/dl (32.0-36.0) L 12/30/16 12:50 RDW 16.5 % (11.6-15.6) H 12/30/16 12:50 Plt Count 212 K/MM3 (134-434) 12/30/16 12:50 MPV 8.5 fl (7.5-11.1) 12/30/16 12:50 Neutrophils % 33.2 % (42.8-82.8) L 12/30/16 12:50 Lymphocytes % 54.2 % (8-40) H 12/30/16 12:50 Monocytes % 11.4 % (3.8-10.2) H 12/30/16 12:50 Eosinophils % 0.7 % (0-4.5) 12/30/16 12:50 Basophils % 0.5 % (0-2.0) 12/30/16 12:50 Sodium 140 mmol/L (136-145) 12/30/16 12:50 Potassium 4.0 mmol/L (3.5-5.1) 12/30/16 12:50 Chloride 103 mmol/L (98-107) 12/30/16 12:50 Carbon Dioxide 31 mmol/L (21-32) 12/30/16 12:50 Anion Gap 6 (8-16) L 12/30/16 12:50 BUN 12 mg/dL (7-18) D 12/30/16 12:50 Creatinine 0.9 mg/dL (0.55-1.02) 12/30/16 12:50 Creat Clearance w eGFR > 60 (>60) 12/30/16 12:50 Random Glucose 75 mg/dL (74-106) 12/30/16 12:50 Calcium 8.9 mg/dL (8.5-10.1) 12/30/16 12:50 Total Bilirubin 0.4 mg/dL (0.2-1.0) 12/30/16 12:50 AST 15 U/L (15-37) 12/30/16 12:50 ALT 22 U/L (12-78) D 12/30/16 12:50 Alkaline Phosphatase 43 U/L (45-117) L 12/30/16 12:50 Creatine Kinase 93 IU/L (26-192) 12/31/16 00:35 Troponin I < 0.02 ng/ml (0.00-0.05) 12/31/16 00:35 Total Protein 7.0 g/dl (6.4-8.2) 12/30/16 12:50 Albumin 3.3 g/dl (3.4-5.0) L 12/30/16 12:50 TSH 0.68 uIU/ml (0.358-3.74) 12/31/16 05:00 Free T4 1.03 ng/dl (0.76-1.46) 12/31/16 05:00 Imaging - Results Chest X-ray: Image Reviewed (CXR 12/31/16: Possible retrocardia atelectasis or infiltrate. Enlarged heart.) EKG: Image Reviewed (1st degree AV block. Late R wave progression. Mild ST elevation in V2. No evidence of BBB or LV hypertrophy.) Assessment/Plan Chest Pain - Likely 2/2 cocaine use/vasospasm - Add Norvasc 2.[address] Ott, titrate up as tolerated - D/C to [facility] when bed is available - Urine Tox: Positive Cocaine - Troponin negative x 3 AFib - Xarelto 20 mg - Digoxin0.125 mg qd - ASA CHF - ECHO 07/2016: Mildly reduced EF - Lasix 20 mg qd HLD - Lipitor 40 mg qd HTN - Losartan 50 mg qd - Aldactone 50 mg qd COPD - Symbicort - Ventolin
--- NOTE | 2016-12-31 15:09 | EKG ---
Test Reason : Blood Pressure : / mmHG Vent. Rate : 060 BPM Atrial Rate : 060 BPM P-R Int : 252 ms QRS Dur : 118 ms QT Int : 442 ms P-R-T Axes : 042 -23 072 degrees QTc Int : 442 ms Atrial-paced rhythm with prolonged AV conduction NON-SPECIFIC INTRA-VENTRICULAR CONDUCTION DELAY NONSPECIFIC T WAVE ABNORMALITY ABNORMAL ECG WHEN COMPARED WITH ECG OF 30-DEC-2016 11:58, NO SIGNIFICANT CHANGE WAS FOUND Confirmed by HORACE BO MD ([id number]) on 12/31/2016 3:08:55 PM Referred By: Confirmed By:HORACE BO MD
--- NOTE | 2016-12-31 15:21 | PN ---
Physical Exam: SUBJECTIVE: Patient seen and examined OBJECTIVE: Vital Signs Period Temp Pulse Resp BP Sys/Powell Pulse Ox Last 24 Hr 97.5 F-98.2 F 58-80 17-20 101-133/48-69 96-99 GENERAL: The patient is awake, alert, and fully oriented, in no acute distress. HEAD: Normal with no signs of trauma. EYES: PERRL, extraocular movements intact, sclera anicteric, conjunctiva clear. No ptosis. ENT: Ears normal, nares patent, oropharynx clear without exudates, moist mucous membranes. NECK: Trachea midline, full range of motion, supple. LUNGS: Breath sounds equal, clear to auscultation bilaterally, no wheezes, no crackles, no accessory muscle use. HEART: Regular rate and rhythm, S1, S2 without murmur, rub or gallop. ABDOMEN: Soft, nontender, nondistended, normoactive bowel sounds, no guarding, no rebound, no hepatosplenomegaly, no masses. EXTREMITIES: 2+ pulses, warm, well-perfused, no edema. NEUROLOGICAL: Cranial nerves II through XII grossly intact. Normal speech, gait not observed. PSYCH: Normal mood, normal affect. SKIN: Warm, dry, normal turgor, no rashes or lesions noted Laboratory Results - last 24 hr 12/30/16 12/31/16 12/31/16 18:10 00:35 05:00 Creatine Kinase 95 93 Troponin I < 0.02 < 0.02 TSH 0.68 Free T4 1.03 Digoxin 0.2322 L 12/31/16 05:00 Creatine Kinase Troponin I TSH Cancelled Free T4 Cancelled Digoxin Active Medications Generic Name Dose Route Start Last Admin Trade Name Freq PRN Reason Stop Dose Admin Acetaminophen 650 mg 12/30/16 20:20 Tylenol - PO Q4H PRN FEVER OR PAIN Albuterol Sulfate 2 puff 12/30/16 20:20 Ventolin Hfa Inhaler - IH Q6H PRN SHORTNESS OF BREATH Amiodarone HCl 200 mg 12/31/16 10:00 12/31/16 09:43 Cordarone - PO 200 mg DAILY [facility] Administration Amlodipine Besylate 2.5 mg 12/31/16 13:00 12/31/16 14:18 Norvasc - PO 2.5 mg DAILY [facility] Administration Aspirin 81 mg 12/31/16 10:00 12/31/16 09:43 Asa - PO 81 mg DAILY [facility] Administration Atorvastatin Calcium 40 mg 12/30/16 22:00 12/30/16 23:00 Lipitor - PO 40 mg HS [facility] Administration Budesonide/Formoterol Fumarate 2 puff 12/30/16 22:00 12/31/16 10:39 Symbicort 80/4.5mcg - IH 2 inh BID [facility] Administration Digoxin 0.125 mg 12/31/16 10:00 12/31/16 09:44 Lanoxin - PO 0.125 mg DAILY [facility] Administration Fluoxetine HCl 20 mg 12/31/16 10:00 12/31/16 09:44 Prozac - PO 20 mg DAILY [facility] Administration Furosemide 20 mg 12/31/16 12:48 Lasix - PO DAILY [facility] Losartan Potassium 50 mg 12/31/16 10:00 12/31/16 09:44 Cozaar - PO 50 mg DAILY [facility] Administration Rivaroxaban 20 mg 12/31/16 10:00 12/31/16 09:44 Xarelto - PO 20 mg DAILY [facility] Administration Spironolactone 50 mg 12/31/16 10:00 12/31/16 09:43 Aldactone - PO 50 mg DAILY [facility] Administration ASSESSMENT/PLAN: 56 yr old woman with polysubstance abuse and extensive cardiac history presents with chest pain. Atypical Chest pain-could be from vasospasm from recent cocaine use Trop negative x3 telemtry for monitoring cardiology consult appreciated- not further work up at this time Echo from noted needs to stop using cocaine patient counselled CAD: continue aspirin will attempt to get cardiac cath results from [facility] A. Fib rate is well controlled at this time. patient is in sinus rhythm at this time continue digoxin 0.125mg po daily Dig level noted and not high continue ASA 81mg po qd continue xarelto 20mg po qd CHF systolic. does not seem to be in acute exacerbation continue aldactone continue lasix po continue losartan no beta yumiko due to recent cocaine use HLD continue lipitor 40mg po HS HTN - well controlled at this time continue losartan 50mg po daily continue aldactone 50mg po daily continue amiodarone avoid beta blockers due to recent cocaine abuse COPD continue symbicort continue albuterol Polysubstance abuse: medically stable to go back to [facility] for continuation of detox counselled on the need to stop and the risks of continuing drug abuse Depression continue prozac 20mg po qdaily PPx: on xarelto/SCDs no indication for GI PPx no PT consult needed FEN: no IVF no electrolyte issues low sodium diet medically stable for discharge to [facility] however there is no bed at this time patient will go tomorrow. Visit type - Emergency Visit Emergency Visit: Yes ED Registration Date: 12/30/16 Care time: The patient presented to the Emergency Department on the above date and was hospitalized for further evaluation of their emergent condition. - New Patient This patient is new to me today: Yes Date on this admission: 12/31/16 - Critical Care Critical Care patient: No
[2016-12-31] MEDS: ATORVASTATIN CA 40 MG TABLET (FP) PO SCH (21:46)
[2017-01-01 06:05] VITALS: BP 111/67; TEMP 99
--- NOTE | 2017-01-01 07:28 | PN ---
Progress Note (short form) - Note Progress Note: Chief Complaint: Events noted, notes reviewed, denies any further chest pain, denies any dyspnea History of Present Illness: Seen and examined on telemetry. Events noted, notes reviewed, denies any further chest pain, denies any dyspnea Plan for continuation of medical therapy and since there is no evidence of ACS, de-compensated LV failure and malignant sustained arrhythmia can be D/C to detox Echocardiography 08/01/2016 revealed normal left ventricular size, Left ventricular systolic function is moderately reduced, moderate global hypokinesia of the left ventricle, trace to mild mitral regurgitation, mild tricuspid regurgitation with normal RVSP Medications: Current Medications Acetaminophen (Tylenol -) 650 mg PO Q4H PRN PRN Reason: FEVER OR PAIN Albuterol Sulfate (Ventolin Hfa Inhaler -) 2 puff IH Q6H PRN PRN Reason: SHORTNESS OF BREATH Amiodarone HCl (Cordarone -) 200 mg PO DAILY [facility] Last Admin: 12/31/16 09:43 Dose: 200 mg Amlodipine Besylate (Norvasc -) 2.5 mg PO DAILY [facility] Last Admin: 12/31/16 14:18 Dose: 2.5 mg Aspirin (Asa -) 81 mg PO DAILY [facility] Last Admin: 12/31/16 09:43 Dose: 81 mg Atorvastatin Calcium (Lipitor -) 40 mg PO HS [facility] Last Admin: 12/31/16 21:46 Dose: 40 mg Budesonide/Formoterol Fumarate (Symbicort 80/4.5mcg -) 2 puff IH BID [facility] Last Admin: 12/31/16 21:46 Dose: 2 inh Digoxin (Lanoxin -) 0.125 mg PO DAILY [facility] Last Admin: 12/31/16 09:44 Dose: 0.125 mg Fluoxetine HCl (Prozac -) 20 mg PO DAILY [facility] Last Admin: 12/31/16 09:44 Dose: 20 mg Furosemide (Lasix -) 20 mg PO DAILY [facility] Losartan Potassium (Cozaar -) 50 mg PO DAILY [facility] Last Admin: 12/31/16 09:44 Dose: 50 mg Rivaroxaban (Xarelto -) 20 mg PO DAILY [facility] Last Admin: 12/31/16 09:44 Dose: 20 mg Spironolactone (Aldactone -) 50 mg PO DAILY [facility] Last Admin: 12/31/16 09:43 Dose: 50 mg Review of Systems Constitutional: denies Chills or Fever Respiratory: denies: Dyspnea Cardiovascular: As noted above Gastrointestinal: denies Nausea, Vomiting, Diarrhea or Constipation or Abdominal Discomfort Genitourinary: No Symptoms Reported Musculoskeletal: No Symptoms Reported Vital Signs: Last Vital Signs Temp Pulse Resp BP Pulse Ox 99 F 60 18 111/67 99 01/01/17 06:04 01/01/17 06:04 01/01/17 06:04 01/01/17 06:04 01/01/17 00:00 Intake & Output 12/29/16 12/30/16 12/31/16 01/01/17 23:59 23:59 23:59 23:59 Intake Total 280 Balance 280 Weight 207 lb 200 lb 12.8 oz Constitutional: No Distress, Calm Neck: Supple Negative JVD Respiratory: Clear to A&P Bilaterally Cardiovascular: S1 S2 Regular Rate and Rhythm Gastrointestinal: Soft Benign Normal Bowel Sounds Ext: No Edema Labs: CBC, BMP 12/30/16 12:50 12/30/16 12:50 Assessment/Plan ASSESSMENT: 1. Probable cocaine induced chest pain/suspected vaso-spasm, no evidence of demand ischemia 2. Non ischemic dilated cardiomyopathy with moderate degree of systolic LV dysfunction and class 0-I NYHA classification LV failure, compensated 3. Paroxysmal atrial fibrillation on NOAC's and Amiodarone, F/U at [facility] 4. Cocaine abuse 5. ETOH abuse 6. History of COPD PLAN: 1. Continue ASA and Xarelto with caution 2. Continue Aldactone and Lasix 3. Continue Digoxin with caution with close monitoring of level 4. Continue Amiodarone, not the ideal therapy care home given her age consider Tikosyn, to be decided by her resident programs assistant at [facility] 5. Continue Norvasc 6. Continue Cozaar 7. Continue Lipitor 8. Counseled smoking cessation 9. Counseled abstinence from toxic behaviors including Alcohol and Cocaine abuse Herman Atkins MD
--- NOTE | 2017-01-01 07:49 | DS ---
Physical Exam: SUBJECTIVE: Patient seen and examined at bedside no chest pain no complaints no events overnight no telemetry events OBJECTIVE: Vital Signs Period Temp Pulse Resp BP Sys/Powell Pulse Ox Last 24 Hr 97.6 F-99 F 60-80 18-18 98-120/44-67 96-99 PHYSICAL EXAM GENERAL: The patient is awake, alert, and fully oriented, in no acute distress. HEAD: Normal with no signs of trauma. EYES: PERRL, extraocular movements intact, sclera anicteric, conjunctiva clear. No ptosis. ENT: Ears normal, nares patent, oropharynx clear without exudates, moist mucous membranes. NECK: Trachea midline, full range of motion, supple. LUNGS: Breath sounds equal, clear to auscultation bilaterally, no wheezes, no crackles, no accessory muscle use. HEART: Regular rate and rhythm, S1, S2 without murmur, rub or gallop. ABDOMEN: Soft, nontender, nondistended, normoactive bowel sounds, no guarding, no rebound, no hepatosplenomegaly, no masses. EXTREMITIES: 2+ pulses, warm, well-perfused, no edema. NEUROLOGICAL: Cranial nerves II through XII grossly intact. Normal speech, gait not observed. PSYCH: Normal mood, normal affect. SKIN: Warm, dry, normal turgor, no rashes or lesions note LABS Laboratory Results - last 24 hr 12/31/16 12/31/16 05:00 05:00 TSH 0.68 Cancelled Free T4 1.03 Cancelled HOSPITAL COURSE: Date of Admission:12/30/16 Date of Discharge: 01/01/17 56F with extensive PMH presented to the hospital from [facility] with chest pain. She was in [facility] for detox from crack cocaine and opiates. She was placed on telemetry observation and seen by cardiology. Her Chest pain was likely due to history of recent cocaine use as she had a very similar presentation about 5 months ago. No further work up indicated per cardiology and she was supposed to go back to [facility] but she instead was discharged home as she was going to be discharged from [facility] tomorrow for a court appointment. Advices to follow up with her PMD and her master barber Minutes to complete discharge: 40 Discharge Summary Reason For Visit: CHEST PAIN, COCAINE ABUSE Current Active Problems Atypical chest pain (Acute) Chest pain (Acute) Chest pain, rule out acute myocardial infarction (Acute) AICD (automatic cardioverter/defibrillator) present (Chronic) Alcohol dependence (Chronic) Alcohol dependence with uncomplicated withdrawal (Chronic) Atrial fibrillation (Chronic) Chronic heart failure (Chronic) Cocaine abuse (Chronic) Cocaine dependence, uncomplicated (Chronic) Depression (Chronic) Schizoaffective disorder (Chronic) Condition: Stable - Instructions Diet, Activity, Other Instructions: eat a low fat low cholesterol low sodium diet take all your medications as prescribed you must follow up with your primary care doctor in about 2 weeks you must follow up with your master barber if you experience your symptoms again go to the nearest emergency room continue your home medications i will add norvasc to your medications you will need to be on this medication from now on continue your rehabilitation join a fellowship such as ROXI or AMELIA and work the [employer] get a sponsor it was a pleasure taking care of you Good [place] Dr. Jeet Hamilton Disposition: HOME - Home Medications Comprehensive Discharge Medication List: Ambulatory Orders Albuterol Sulfate Inhaler - [Ventolin HFA Inhaler -] 2 inh IH Q4H PRN 01/09/13 Aripiprazole [Abilify -] 20 mg PO DAILY 01/09/13 Salmeterol/Fluticasone [Advair 250Mcg/50Mcg -] 1 inh IH BID 01/09/13 Spironolactone [Aldactone -] 50 mg PO DAILY 01/09/13 Atorvastatin Ca [Lipitor] 40 mg PO HS tablet 07/22/15 Amiodarone HCl [Cordarone -] 200 mg PO DAILY 08/01/16 Acetaminophen [Tylenol .Regular Strength -] 650 mg PO Q4H PRN #0 tablet Aspirin [ASA -] 81 mg PO DAILY tab.chew 08/02/16 Digoxin [Lanoxin -] 0.125 mg PO DAILY tablet 08/02/16 Folic Acid - 1 mg PO DAILY tablet 08/02/16 Rivaroxaban [Xarelto -] 20 mg PO DAILY tablet 08/02/16 Docusate Sodium [Colace -] 100 mg PO DAILY 12/21/16 Fluoxetine HCl [Prozac -] 40 mg PO DAILY 12/21/16 Furosemide [Lasix -] 20 mg PO DAILY 12/21/16 Hydralazine HCl [Apresoline -] 25 mg PO TID 12/21/16 Isosorbide Dinitrate [Isordil -] 20 mg PO DAILY 12/21/16 Losartan Potassium [Cozaar -] 50 mg PO DAILY 12/21/16 Nitroglycerin [Nitrostat] 0.4 mg SL PRN PRN 12/21/16 Pantoprazole Sodium [Protonix] 40 mg PO DAILY 12/21/16 Trazodone HCl [Desyrel -] 100 mg PO HS 12/21/16 Amlodipine Besylate [Norvasc -] 2.5 mg PO DAILY tablet 01/01/17 This patient is new to me today: No Emergency Visit: Yes ED Registration Date: 12/30/16 Care time: The patient presented to the Emergency Department on the above date and was hospitalized for further evaluation of their emergent condition. Critical Care patient: No - Discharge Referral Referred to [facility] Med P.C.: No
--- NOTE | 2017-01-01 08:18 | PN ---
Teaching Attending Note Name of Resident: Jeet Hamilton ATTENDING PHYSICIAN STATEMENT I saw and evaluated the patient. I reviewed the resident's note and discussed the case with the resident. I agree with the resident's findings and plan as documented. SUBJECTIVE: OBJECTIVE: Vital Signs Period Temp Pulse Resp BP Sys/Powell Pulse Ox Last 24 Hr 97.6 F-99 F 60-80 18-18 98-120/44-67 99 ASSESSMENT AND PLAN:
[2017-01-01] MEDS: RIVAROXABAN 20 MG TABLET PO SCH (08:43)
[2017-01-01] MEDS: FLUoxetine HCL 20 MG CAPSULE (FP) PO SCH (08:43)
[2017-01-01] MEDS: ASPIRIN 81 MG CHEWABLE TABLETS PO SCH (08:43)
[2017-01-01] MEDS: LOSARTAN POTASSIUM 50 MG TABLET (FP) PO SCH (08:44)
[2017-01-01] MEDS: AMIODARONE HCL 200 MG TABLET (FP) PO SCH (08:44)
[2017-01-01] MEDS: SPIRONOLACTONE 25 MG TABLET (FP) PO SCH (08:44)
[2017-01-01] MEDS: DIGOXIN 0.125 MG TABLET (FP) PO SCH (08:44)
[2017-01-01] MEDS: BUDESONIDE/FORMETEROL FUMARATE 80/4.5 mcg INHALER IH SCH (08:45)
[2017-01-01] MEDS: amLODIPine BESYLATE 2.5 MG TABLET (FP) PO SCH (08:45)
[2017-01-01 08:46] VITALS: PULSE 82
--- NOTE | 2017-01-07 14:54 | PN ---
[facility] Progress Note Note: Patient was transferred to ER due to chest pain for further evaluation and treatment on 12/30.See medical staff notes for details.
== END 2017-01-01 08:52 | disposition home or self-care (01) ==
LOC: JER 11:43 → JERBED 15:37 → J4W 12-31 03:13
PROVIDERS: ADMIT Internal Medicine; ATTEND Internal Medicine
PROC: 3E0F7GC Introduction of Other Therapeutic Substance into Respiratory Tract, Via Natural or Artificial Opening (ICD-10-PCS; principal; 2016-12-30)
DX: R07.89 Other chest pain (principal); F10.20 Alcohol dependence, uncomplicated; F14.20 Cocaine dependence, uncomplicated; I10 Essential (primary) hypertension; I48.0 Paroxysmal atrial fibrillation; I25.10 Atherosclerotic heart disease of native coronary artery without angina pectoris; I25.2 Old myocardial infarction; I50.22 Chronic systolic (congestive) heart failure; I82.409 Acute embolism and thrombosis of unspecified deep veins of unspecified lower extremity; I42.9 Cardiomyopathy, unspecified; E78.5 Hyperlipidemia, unspecified; J45.909 Unspecified asthma, uncomplicated; J44.9 Chronic obstructive pulmonary disease, unspecified; F32.9 Major depressive disorder, single episode, unspecified; Z91.5 Personal history of self-harm; Z98.61 Coronary angioplasty status; Z87.891 Personal history of nicotine dependence; Z99.81 Dependence on supplemental oxygen; Z95.810 Presence of automatic (implantable) cardiac defibrillator; Z79.01 Long term (current) use of anticoagulants
CPT/HCPCS: 36415; 71010-TC; 80053; 80162; 80307; 82550; 84439; 84443; 84484; 85025; 85610; 93005; 93010; 99285-25; G0378

== ENCOUNTER 2019-05-08 12:22 | Inpatient (IN) | payer OTHER ==
[2019-05-08 14:11] VITALS: BMI 31.9
--- NOTE | 2019-05-08 15:36 | HP ---
CIWA Score Nausea/Vomitin-No Nausea/No Vomiting Muscle Tremors: None Anxiety: 1-Mildly Anxious Agitation: 0-Normal Activity Paroxysmal Sweats: No Perspiration Orientation: 0-Oriented Tacttile Disturbances: 0-None Auditory Disturbances: 0-None Visual Disturbances: 0-None Headache: 0-None Present CIWA-Ar Total Score: 1 - Admission Criteria OASAS Guidelines: Admission for Medically Managed Detox: Requires at least one of the followin. CIWA greater than 12 2. Seizures within the past 24 hours 3. Delirium tremens within the past 24 hours 4. Hallucinations within the past 24 hours 5. Acute intervention needed for co occurring medical disorder 6. Acute intervention needed for co occurring psychiatric disorder 7. Severe withdrawal that cannot be handled at a lower level of care (continued vomiting, continued diarrhea, abnormal vital signs) requiring intravenous medication and/or fluids 8. Admission ROS [facility] Chief Complaint: alcohol, crack rehab Allergies/Adverse Reactions: Allergies Allergy/AdvReac Type Severity Reaction Status Date / Time LARA Inhibitors Allergy Verified 05/08/19 14:06 enalaprilat dihydrate Allergy Verified 05/08/19 14:06 [From Vasote] shellfish derived Allergy Verified 05/08/19 14:06 History of Present Illness: Patient is a 58 yo F with a PMhx of afib on xarelto, CAD s/p cath x2, CHF, HTN, HLD, hx of [place], defibrillator placement, COPD on home oxygen, polysubstance abuse , depression, anxiety, bipolar schizoaffective, presenting today for alcohol and crack rehab. She was discharged from [facility] and detoxed there. She was admitted for chest pain. Patient drinks a pint a day. Her last drink on the . She has been drinking she was 20. Patient smokes 100 dollars a day worth of a crack. Last on the . 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 Denies vaginal discharge, itch, pain. Denies other drug use. Smokes 1PPD for many years. No hx of seizures or blackouts. Lives in an apartment with her uncle. Exam Limitations: No Limitations - Ebola screening Have you traveled outside of the country in the last 21 days: No (N) Have you had contact with anyone from an Ebola affected area: No Do you have a fever: No - Review of Systems Constitutional: No Symptoms Reported Respiratory: reports: Cough. denies: Shortness of Breath Cardiac: denies: Chest Pain, Edema GI: reports: No Symptoms Reported Patient History - Patient Medical History Hx Anemia: No Hx Asthma: Yes Hx Chronic Obstructive Pulmonary Disease (COPD): Yes Hx Cancer: No Hx Cardiac Disorders: Yes (A FIB) Hx Congestive Heart Failure: Yes (ON MEDS) Hx Hypertension: Yes Hx Hypercholesterolemia: Yes (ON MEDS) Hx Pacemaker: Yes (R CHEST WALL STATES CHECKED LAST MONTH) HX Cerebrovascular Accident: No Hx Seizures: No Hx Dementia: No Hx Diabetes: No Hx Gastrointestinal Disorders: No Hx Liver Disease: No Hx Genitourinary Disorders: No Hx Sexually Transmitted Disorders: No Hx Renal Disease (ESRD): No Hx Thyroid Disease: No Hx Human Immunodeficiency Virus (HIV): No (NEGATIVE HX) Hx Hepatitis C: No Hx Depression: Yes Hx Suicide Attempt: No Hx Bipolar Disorder: Yes (ON MEDS) Hx Schizophrenia: Yes - Patient Surgical History Past Surgical History: Yes Hx Neurologic Surgery: No Hx Cataract Extraction: No Hx Cardiac Surgery: No Hx Lung Surgery: No Hx Breast Surgery: No Hx Breast Biopsy: No Hx Abdominal Surgery: No Hx Appendectomy: No Hx Cholecystectomy: No Hx Genitourinary Surgery: No Hx Section: No Hx Orthopedic Surgery: No Other Surgical History: Cardiac Surgery-Pace maker Anesthesia Reaction: No - PPD History Date: 08/02/16 Results: 0MM - Reproductive History Last Menstrual Period: 01/05/09 - Smoking Cessation Smoking history: Current every day smoker Have you smoked in the past 12 months: No Aproximately how many cigarettes per day: 5 If you are a former smoker, when did you quit?: 3 years Cigars Per Day: 0 Hx Chewing Tobacco Use: No Initiated information on smoking cessation: Yes 'Breaking Loose' booklet given: 05/08/19 - Substances abused Alcohol Substance route: Oral Frequency: Daily Amount used: 1 PINT VODKA Age of first use: 20 Date of last use: 04/30/19 Crack Substance route: Smoking Frequency: Daily Amount used: $100/MONTH Age of first use: 27 Date of last use: 04/30/19 Family Disease History - Family Disease History Family Disease History: Diabetes: Father, Heart Disease: Mother Admission Physical Exam BHS - Vital Signs Vital Signs: Vital Signs - 24 hr 05/08/19 05/08/19 14:03 15:02 Temperature 97.0 F L 97.0 F L Pulse Rate 60 60 Respiratory 20 20 Rate Blood Pressure 162/94 162/94 - Physical General Appearance: Yes: No Apparent Distress HEENTM: No: Thrush Respiratory: Yes: No Respiratory Distress, No Accessory Muscle Use Cardiology: Yes: Regular Rate, S1, S2. No: Edema Abdominal: Yes: Non Tender, Soft - Diagnostic (1) AICD (automatic cardioverter/defibrillator) present Current Visit: No Status: Chronic (2) Alcohol dependence Current Visit: No Status: Chronic (3) Depression Current Visit: No Status: Chronic (4) COPD (chronic obstructive pulmonary disease) Current Visit: No Status: Chronic Qualifiers: COPD type: unspecified COPD Qualified Code(s): J44.9 - Chronic obstructive pulmonary disease, unspecified (5) Hypertension Current Visit: No Status: Chronic Qualifiers: Hypertension type: essential hypertension Qualified Code(s): I10 - Essential (primary) hypertension Cleared for Admission S - Detox or Rehab [facility] Level of Care: Medically Managed Breathalyzer - Breathalyzer Breathalyzer: 0 Urine Drug Screen - Test Device Lot number: [id number] Expiration date: 02/13/21 - Control Is test valid?: Yes - Results Drug screen NEGATIVE: Yes Inpatient Rehab Admission - Rehab Decision to Admit Inpatient rehab admission?: Yes - Initial Determination Are CD services needed?: Yes Free of communicable disease: Yes Not in need of hospitalization: Yes - Rehab Admission Criteria Previous failed treatment: Yes Poor recovery environment: Yes Comorbidities: Yes Lacks judgement: No Patient is meeting Inpatient Rehab admission criteria:: Yes
[2019-05-08] MEDS ORDERED: LOPERAMIDE HCL 2 MG CAPSULE PO PRN (15:54)
[2019-05-08] MEDS ORDERED: ACETAMINOPHEN 325 MG TABLET (FP) PO PRN (15:54)
[2019-05-08] MEDS ORDERED: MENTHOL/PHENOL 1 EACH UD MM PRN (15:54)
[2019-05-08] MEDS ORDERED: guaiFENesin 200 MG/10 ML 10 ML UNIT-DOSE CUPS PO PRN (15:54)
[2019-05-08] MEDS ORDERED: P-EPHED 60MG/TRIPROLIDI 2.5MG TABLET PO PRN (15:54)
[2019-05-08] MEDS ORDERED: IBUPROFEN 400 MG TABLET (FP) PO PRN (15:54)
[2019-05-08] MEDS ORDERED: MAGNESIUM HYDROX 2400MG/30ML ORAL SUSPENSION 30 ML CUP PO PRN (15:54)
[2019-05-08] MEDS ORDERED: MAGNESIUM CITRATE 300 ML BOTTLE PO PRN (15:54)
[2019-05-08] MEDS ORDERED: ALBUTEROL SO4 8 GM HFA INHALER IH PRN (15:56)
--- NOTE | 2019-05-08 16:03 | PN ---
Teaching Attending Note Name of Resident: Jerman Mac ATTENDING PHYSICIAN STATEMENT I saw and evaluated the patient. I reviewed the resident's note and discussed the case with the resident. I agree with the resident's findings and plan as documented. SUBJECTIVE: this 58 years old female with alcohol and cocaine dependence,completed detox today,multiple medical problem includng implanted ICD, bipolar disorder OBJECTIVE: Vital Signs Temperature 97.0 F L 05/08/19 15:02 Pulse Rate 60 05/08/19 15:02 Respiratory Rate 20 05/08/19 15:02 Blood Pressure 162/94 05/08/19 15:02 O2 Sat by Pulse Oximetry (%) ASSESSMENT AND PLAN: this patient need inpatient rehab for continuing of care,close monitoring
[2019-05-08] MEDS: NICOTINE 21 MG/24 HOURS TOPICAL PATCH TD SCH (18:21)
[2019-05-08] MEDS: MAG HYDROX/AL HYDROX/SIMETH 30 ML UNIT-DOSE CUP PO PRN (18:44)
[2019-05-08] MEDS ORDERED: MELATONIN 5 MG TABLETS PO PRN (22:00)
[2019-05-08] MEDS: traZODone HCL 50 MG TABLET (FP) PO SCH (22:07)
[2019-05-08] MEDS: RIVAROXABAN 20 MG TABLET PO SCH (22:09)
[2019-05-08] MEDS: THIAMINE HCL 100 MG TABLET (FP) PO SCH (22:09)
[2019-05-09] MEDS ORDERED: PT OWN MED DRAWER 7, Y5N ONE (06:08)
[2019-05-09] MEDS: NICOTINE 21 MG/24 HOURS TOPICAL PATCH TD SCH (09:09)
--- NOTE | 2019-05-09 09:12 | PN ---
[facility] Progress Note Note: Patient is referred for chest pain. On exam, patient reported resolution of chest pain after she burped, she reports she is feeling okay. She is a 58 year old woman with history of A-fib on xarelto, CAD s/p kailee x2, CHF, HTN, HLD, OR, defibrillator placement, COPD on home oxygen, polysubstance abuse, depression, anxiety, bipolar and schizoaffective disorder PE Vital Signs Temperature 97.1 F L 05/09/19 07:28 Pulse Rate 67 05/09/19 07:28 Respiratory Rate 18 05/09/19 07:28 Blood Pressure 107/74 05/09/19 07:28 O2 Sat by Pulse Oximetry (%) Chest:Lungs clear in all cartwright CVS: S1S2, irregular Abd: BS x4, soft, NT, ND A/P Reflux- Encouraged to take mylanta if symptoms return Staff to monitor for cardiac event and report promptly
[2019-05-09] MEDS ORDERED: FLUoxetine HCL 20 MG CAPSULE (FP) PO SCH (10:00)
[2019-05-09] MEDS ORDERED: ASPIRIN 81 MG CHEWABLE TABLETS PO SCH (10:00)
[2019-05-09] MEDS ORDERED: PRENATAL VITAMINS W/ FOLIC ACID TABLET (FP) PO SCH (10:00)
[2019-05-09] MEDS ORDERED: AMIODARONE HCL 200 MG TABLET (FP) PO SCH (10:00)
[2019-05-09] MEDS ORDERED: LOSARTAN POTASSIUM 50 MG TABLET (FP) PO SCH (10:00)
[2019-05-09] MEDS ORDERED: FUROSEMIDE 20 MG TABLET (FP) PO SCH (10:00)
[2019-05-09] MEDS ORDERED: ARIPiprazole 15 MG TABLET PO SCH (10:00)
[2019-05-09 11:04] LABS: HEMATOCRIT 32.2 % (32.4-45.2); HEMOGLOBIN 10.6 GM/dL (10.7-15.3); MCH 30.4 pg (25.7-33.7); MEAN CELL VOLUME 92.3 fl (80-96); MEAN PLT VOLUME 10.1 fl (7.5-11.1); RBC 3.49 M/mm3 (3.60-5.2); RDW 15.9 % (11.6-15.6); WHITE BLOOD COUNT 3.1 K/mm3 (4.0-10.0)
[2019-05-09 11:08] LABS: ALBUMIN 3.1 g/dl (3.4-5.0); BILIRUBIN,TOTAL 0.3 mg/dL (0.2-1); BLOOD UREA NITROGEN 16.9 mg/dL (7-18); CALCIUM 9.3 mg/dL (8.5-10.1); CREATININE 1.2 mg/dL (0.55-1.3); POTASSIUM 4.3 mmol/L (3.5-5.1); TOT PROT 6.5 g/dl (6.4-8.2)
[2019-05-09 11:27] LABS: PLATELET COUNT 190 K/MM3 (134-434)
[2019-05-09] MEDS: MAG HYDROX/AL HYDROX/SIMETH 30 ML UNIT-DOSE CUP PO PRN (12:30)
--- NOTE | 2019-05-09 15:02 | PN ---
[facility] Progress Note Note: Patient had chest pain this morning with spontaneous resolution. [facility], has multiple cardiac issues including IN , A-fib, CAD s/p cardiac cath x 2, CHF, HTN, HLD, defibrillator placement and COPD on home oxygen Given extensive cardiac history, patient will be sent to the the ED for further evaluation. Report given to Dr. Hamm
[2019-05-09 15:16] VITALS: BP 90/64; PULSE 69; TEMP 97.3
--- NOTE | 2019-05-09 15:41 | PN ---
[facility] Progress Note Note: Patient had a fall in the hallway as she was walking to the bathroom. As per patient, she hit the back of her head, she had no loss of consciousness. On exam , she is alert, responds appropriately, reports dizziness. HEENT: Mild tenderness to the back of the head, no lacerations or bleeding Chest: Lungs clear in all cartwright CVS: S1S2 A/P Fall-Patient was already pending transfer to the ED for evaluation for chest pain. Dr. Hamm updated.
[2019-05-09] MEDS: traZODone HCL 50 MG TABLET (FP) PO SCH (21:56)
[2019-05-09] MEDS: RIVAROXABAN 20 MG TABLET PO SCH (21:56)
[2019-05-09] MEDS: THIAMINE HCL 100 MG TABLET (FP) PO SCH (21:56)
--- NOTE | 2019-05-11 13:04 | EKG ---
Test Reason : Blood Pressure : / mmHG Vent. Rate : 064 BPM Atrial Rate : 064 BPM P-R Int : 240 ms QRS Dur : 136 ms QT Int : 470 ms P-R-T Axes : 041 -63 084 degrees QTc Int : 484 ms Atrial-paced rhythm with prolonged AV conduction WITH OCCASIONAL ABERRANTLY CONDUCTED COMPLEX LEFT AXIS DEVIATION NON-SPECIFIC INTRA-VENTRICULAR CONDUCTION BLOCK CANNOT RULE OUT ANTEROSEPTAL INFARCT , AGE UNDETERMINED ABNORMAL ECG WHEN COMPARED WITH ECG OF 30-DEC-2016 18:27, ABERRANT COMPLEX IS SEEN Confirmed by HENNY ZHOU MD ([id number]) on 05/11/2019 1:03:47 PM Referred By: Confirmed By:HENNY ZHOU MD
== END 2019-05-09 22:50 | disposition home or self-care (01) | DRG 772 ==
LOC: YASAS 12:22 → Y3E 15:51
PROVIDERS: ADMIT Neuromusculoskeletal Medicine & OMM; ATTEND Neuromusculoskeletal Medicine & OMM
PROC: HZ42ZZZ Group Counseling for Substance Abuse Treatment, Cognitive-Behavioral (ICD-10-PCS; principal; 2019-05-08)
DX: F10.20 Alcohol dependence, uncomplicated (principal); F14.20 Cocaine dependence, uncomplicated; F17.210 Nicotine dependence, cigarettes, uncomplicated; F31.9 Bipolar disorder, unspecified; F20.9 Schizophrenia, unspecified; I25.10 Atherosclerotic heart disease of native coronary artery without angina pectoris; I11.0 Hypertensive heart disease with heart failure; I50.9 Heart failure, unspecified; I48.91 Unspecified atrial fibrillation; Z79.01 Long term (current) use of anticoagulants; I25.2 Old myocardial infarction; J44.9 Chronic obstructive pulmonary disease, unspecified; Z95.5 Presence of coronary angioplasty implant and graft; Z99.81 Dependence on supplemental oxygen; Z95.810 Presence of automatic (implantable) cardiac defibrillator; R07.9 Chest pain, unspecified; S09.8XXA Other specified injuries of head, initial encounter; W18.39XA Other fall on same level, initial encounter; Y93.89 Activity, other specified; Y92.232 Corridor of hospital as the place of occurrence of the external cause
CPT/HCPCS: 36415; 80053; 82962; 85027; 86480; 86593; 87389; 93005; 93010

== ENCOUNTER 2019-05-09 16:04 | Inpatient (IN) | payer OTHER ==
--- NOTE | 2019-05-09 18:27 | PDOC ---
History of Present Illness - General Chief Complaint: Chest Pain Stated Complaint: CHEST PAIN Time Seen by Provider: 05/09/19 18:02 - History of Present Illness Initial Comments: 05/09/19 18:54 Patient is a 58 yo F with a PMhx of afib on xarelto, CAD s/p cath x2, CHF, HTN, HLD, hx of [place], defibrillator placement, COPD on home oxygen, polysubstance abuse , depression, anxiety, bipolar schizoaffective, sent from [facility] where she was admitted for alcohol and crack rehab for new onset chest pain on/off since this morning that and fall on her head with no loc. She says that her chest pain is the same as when she had her heart attack. Patient asking for pain medication. Past History - Past Medical History Allergies/Adverse Reactions: Allergies Allergy/AdvReac Type Severity Reaction Status Date / Time LARA Inhibitors Allergy Verified 05/09/19 17:05 enalaprilat dihydrate Allergy Verified 05/09/19 17:05 [From Vasote] shellfish derived Allergy Verified 05/09/19 17:05 Home Medications: Ambulatory Orders Albuterol Sulfate Inhaler - [Ventolin HFA Inhaler -] 2 inh IH Q4H PRN 01/09/13 Aripiprazole [Abilify -] 30 mg PO DAILY 01/09/13 Salmeterol/Fluticasone [Advair 250Mcg/50Mcg -] 1 inh IH BID 01/09/13 Amiodarone HCl [Cordarone -] 200 mg PO DAILY 08/01/16 Aspirin [ASA -] 81 mg PO DAILY tab.chew 08/02/16 Furosemide [Lasix -] 20 mg PO DAILY 12/21/16 Losartan Potassium [Cozaar -] 25 mg PO DAILY 12/21/16 traZODone HCL [Desyrel -] 150 mg PO HS 12/21/16 Fluoxetine HCl 20 mg PO DAILY 05/08/19 Metformin HCl [Metformin HCl ER] 500 mg PO DAILY 05/08/19 Rivaroxaban [Xarelto -] 20 mg PO HS 05/08/19 Anemia: No Asthma: Yes Cancer: No Cardiac Disorders: Yes (A FIB) CVA: No COPD: Yes CHF: Yes (ON MEDS) Dementia: No Diabetes: No GI Disorders: No Disorders: No HTN: Yes Hypercholesterolemia: Yes (ON MEDS) Kidney Stones: No Liver Disease: No Seizures: No Thyroid Disease: No - Surgical History Abdominal Surgery: No Appendectomy: No Cardiac Surgery: No Cholecystectomy: No Lung Surgery: No Neurologic Surgery: No Orthopedic Surgery: No - Reproductive History PID: No - Immunization History Immunization Up to Date: Yes - Suicide/Smoking/Psychosocial Hx Smoking History: Unknown if ever smoked Have you smoked in the past 12 months: No Number of Cigarettes Smoked Daily: 5 If you are a former smoker, when did you quit?: 3 years Cigars Per Day: 0 Information on smoking cessation initiated: No 'Breaking Loose' booklet given: 05/08/19 Hx Alcohol Use: Yes Drug/Substance Use Hx: Yes Substance Use Type: Alcohol, Cocaine Hx Substance Use Treatment: Yes Review of Systems - Review of Systems Able to Perform ROS?: Yes Is the patient limited Italian proficient: No Constitutional: No: Symptoms Reported HEENTM: No: Symptoms Reported Respiratory: No: Symptoms reported Cardiac (ROS): Yes: See HPI ABD/GI: No: Symptoms Reported : No: Symptoms Reported Musculoskeletal: No: Symptoms Reported Integumentary: No: Symptoms Reported Neurological: No: Symptoms reported All Other Systems: Reviewed and Negative *Physical Exam - Vital Signs Last Vital Signs Temp Pulse Resp BP Pulse Ox 98.0 F 82 16 98/62 100 05/09/19 16:05 05/09/19 16:05 05/09/19 16:05 05/09/19 16:05 05/09/19 16:05 - Physical Exam General Appearance: Yes: Nourished, Appropriately Dressed, Disheveled HEENT: positive: EOMI, YADIRA, Normal ENT Inspection Respiratory/Chest: positive: Lungs Clear, Normal Breath Sounds. negative: Chest Tender, Respiratory Distress Cardiovascular: positive: Regular Rhythm, Regular Rate, S1, S2 Gastrointestinal/Abdominal: positive: Normal Bowel Sounds, Flat, Soft. negative : Tender Musculoskeletal: positive: Normal Inspection. negative: CVA Tenderness Extremity: positive: Normal Capillary Refill ED Treatment Course - LABORATORY CBC & Chemistry Diagram: 05/09/19 18:32 05/09/19 18:32 - RADIOLOGY Radiology Studies Ordered: Category Date Time Status CERVICAL SPINE CT W/O CONTR [CT] Stat CT Scan 05/09/19 18:[address] WITHOUT CONTRAST [CT] Stat CT Scan 05/09/19 18:09 Ordered Medical Decision Making - Medical Decision Making 05/09/19 20:45 58f on detox from [facility] here for chest pain on/off today and fall. Will r/o [place] due to patient's history with ekg and trops and obtain Ct head/ cervical neck. Patient signed out to Dr. Elkins *DC/Admit/Observation/Transfer Diagnosis at time of Disposition: Chest pain - Referrals - Patient Instructions - Post Discharge Activity
[2019-05-09] MEDS ORDERED: FAMOTIDINE 20 MG/50 ML IVPB 20 MG/50 ML MG IVPB ONE ×2 (18:55→19:34)
[2019-05-09 18:56] LABS: BASO % 1.9 % (0-2.0); EOS % 0.6 % (0-4.5); HEMATOCRIT 32.7 % (32.4-45.2); HEMOGLOBIN 10.9 GM/dL (10.7-15.3); LYMPH % 52.3 % (8-40); MCH 30.6 pg (25.7-33.7); MCHC 33.3 g/dl (32.0-36.0); MEAN CELL VOLUME 91.9 fl (80-96); MEAN PLT VOLUME 9.9 fl (7.5-11.1); MONO % 10.9 % (3.8-10.2); NEUT % 34.3 % (42.8-82.8); RBC 3.56 M/mm3 (3.60-5.2); RDW 15.7 % (11.6-15.6); WHITE BLOOD COUNT 3.5 K/mm3 (4.0-10.0)
[2019-05-09 19:02] LABS: PLATELET COUNT 202 K/MM3 (134-434)
--- NOTE | 2019-05-09 19:16 | PDOC ---
Heart Score/ECG Review - History History: Slightly suspicious - Electrocardiogram EKG: Non specific repolarization disturbance - Age Age: 45-65 - Risk Factors Risk Factors Heart Score: Yes Hx Hypercholesterolemia, Yes Hx Hypertension, Yes Smoking History Based on the list above the patient has:: >/=3 risk factors or Hx atherosclerotic disease - Troponin Troponin: </= normal limit - Score Heart Score - Total: 4 ED Treatment Course - LABORATORY CBC & Chemistry Diagram: 05/09/19 18:32 05/09/19 18:32 Medical Decision Making - Medical Decision Making Pt signed out to me by Dr. Li, EM Day Resident. 58 year old female with PMH cocaine abuse, ETOH abuse, polysubstance abuse, HTN , HLD, CHF, CAD s/p cath x2, AICD, OK, anxiety/depression, bipolar disorder sent to ED from [facility] for fall and chest pain. Initial Vital Signs Temp Pulse Resp BP Pulse Ox 98.0 F 82 16 98/62 100 05/09/19 16:05 05/09/19 16:05 05/09/19 16:05 05/09/19 16:05 05/09/19 16:05 Afebrile. No tachycardia. No tachypnea. Mild hypotension. No hypoxia on room air. CBC WBC 3.5 K/mm3 (4.0-10.0) L 05/09/19 18:32 RBC 3.56 M/mm3 (3.60-5.2) L 05/09/19 18:32 Hgb 10.9 GM/dL (10.7-15.3) 05/09/19 18:32 Hct 32.7 % (32.4-45.2) 05/09/19 18:32 MCV 91.9 fl (80-96) 05/09/19 18:32 MCH 30.6 pg (25.7-33.7) 05/09/19 18:32 MCHC 33.3 g/dl (32.0-36.0) 05/09/19 18:32 RDW 15.7 % (11.6-15.6) H 05/09/19 18:32 Plt Count 202 K/MM3 (134-434) 05/09/19 18:32 MPV 9.9 fl (7.5-11.1) 05/09/19 18:32 Absolute Neuts (auto) 1.2 K/mm3 (1.5-8.0) L 05/09/19 18:32 Neutrophils % 34.3 % (42.8-82.8) L 05/09/19 18:32 Lymphocytes % 52.3 % (8-40) H 05/09/19 18:32 Monocytes % 10.9 % (3.8-10.2) H 05/09/19 18:32 Eosinophils % 0.6 % (0-4.5) 05/09/19 18:32 Basophils % 1.9 % (0-2.0) D 05/09/19 18:32 Nucleated RBC % 0 % (0-0) 05/09/19 18:32 No leukocytosis. No anemia Pending CT head, CT cervical spine, CMP, CXR. 05/09/19 20:09 CMP Sodium 143 mmol/L (136-145) 05/09/19 18:32 Potassium 4.7 mmol/L (3.5-5.1) 05/09/19 18:32 Chloride 106 mmol/L (98-107) 05/09/19 18:32 Carbon Dioxide 31 mmol/L (21-32) 05/09/19 18:32 Anion Gap 6 MMOL/L (8-16) L 05/09/19 18:32 BUN 15.6 mg/dL (7-18) 05/09/19 18:32 Creatinine 1.1 mg/dL (0.55-1.3) 05/09/19 18:32 Est GFR (CKD-EPI)AfAm 65.00 05/09/19 18:32 Est GFR (CKD-EPI)NonAf 56.08 05/09/19 18:32 Random Glucose 83 mg/dL (74-106) 05/09/19 18:32 Calcium 9.6 mg/dL (8.5-10.1) 05/09/19 18:32 Total Bilirubin 0.3 mg/dL (0.2-1) 05/09/19 18:32 AST 29 U/L (15-37) 05/09/19 18:32 ALT 22 U/L (13-61) 05/09/19 18:32 Alkaline Phosphatase 53 U/L (45-117) 05/09/19 18:32 Creatine Kinase 143 U/L (26-192) 05/09/19 18:32 Troponin I < 0.02 ng/ml (0.00-0.05) 05/09/19 18:32 B-Natriuretic Peptide 492.6 pg/ml (5-125) H 05/09/19 18:32 Total Protein 6.6 g/dl (6.4-8.2) 05/09/19 18:32 Albumin 3.2 g/dl (3.4-5.0) L 05/09/19 18:32 No electrolyte abnormalities. No PAULINA. No transaminitis. Troponin undetectable BNP elevated 05/09/19 20:48 Pt reassessed, reported chest pain still present. HEART score as above, plan to admit if CT head/cervical spine negative. 05/09/19 21:00 CXR report: Referring Physician: FELECIA Senior Name: ASAF FLOYD THIS IS A PRELIMINARY REPORT FROM [facility] EXAM: Chest x-ray IMAGES: 3 DATE OF EXAM: 2019-05-09 19:30:04 REASON FOR EXAM: Chest pain COMPARISON: None. FINDINGS: No acute cardiopulmonary disease. No focal pneumonia. Moderate cardiomegaly. THIS DOCUMENT HAS BEEN ELECTRONICALLY SIGNED Horacio Barber MD 05/09/2019 20:33 EST M.D. Please call [facility] [phone] with questions. Horacio Barber MD 05/09/19 21:28 Pt continuing to have chest pain (910), hypotensive. Pt reported since her last stenting she has been hypotensive, but she does not know why. Will monitor, do not want to fluid overload. Pt high risk for stent thrombosis. Will call [facility] for evaluation for transfer. 05/09/19 21:54 I spoke with [facility], pt has not been admitted to [place] since 2017, has been seen in the ED multiple times in March for chest pain - but she was discharged. [facility] paged. CT head report: Referring Physician: TRU TROTTER Comments: Horacio Barber MD wrote on May 09, 2019 at 09:49 PM: Referring Physician: TRU TROTTER Patient Name: ASAF FLOYD THIS IS A PRELIMINARY REPORT FROM [facility] EXAM: CT head without contrast IMAGES: 147 DATE OF EXAM: 2019-05-09 20:56:43 REASON FOR EXAM: Fall COMPARISON: None. FINDINGS: There is cerebral atrophy. Very mild chronic microvascular ischemic changes are suggested. No acute intracranial hemorrhage or acute infarction The visualized aspect of the paranasal sinuses and mastoid air cells are unremarkable. No acute fracture. One or more of the following dose reduction techniques were used: automated exposure control, adjustment of the mA and/or kV according to patient size, use of iterative reconstructive technique. THIS DOCUMENT HAS BEEN ELECTRONICALLY SIGNED Horacio Barber MD 05/09/2019 21:48 EST M.D. Please call [facility] [phone] with questions. Horacio Barber MD CT cervical spine report: Referring Physician: TRU TROTTER Comments: Horacio Barber MD wrote on May 09, 2019 at 09:52 PM: Referring Physician: TRU TROTTER Patient Name: ASAF FLOYD THIS IS A PRELIMINARY REPORT FROM [facility] EXAM: CT cervical spine without contrast IMAGES:235 DATE OF EXAM: 2019-05-09 20:47:03 REASON FOR EXAM: Fall COMPARISON: None Findings: Cervical spine demonstrates normal alignment. Degenerative changes noted. No acute cervical spine fracture or dislocation. One or more of the following dose reduction techniques were used: automated exposure control, adjustment of the mA and/or kV according to patient size, use of iterative reconstructive technique. THIS DOCUMENT HAS BEEN ELECTRONICALLY SIGNED Horacio Barber MD 05/09/2019 21:50 EST 05/09/19 22:13 Dr. Pimentel spoke with [facility], who also does not have record of her being admitted for stent placement. I discussed findings with pt, she stated she is certain she was at [facility] for a stent. Will admit to [facility] for chest pain observation. 05/09/19 22:32 I spoke with [facility] RN about the patient. She stated pt completed [facility] Detox and was discharged, then walked into [facility] for detox. She stated the patient did not mention any recent stenting. 05/09/19 22:53 Second troponin pending. Second EKG performed at 2244: rate 67, regular rhythm, left axis, new TWI in V5/ V6. 05/09/19 23:33 I spoke with admitting team, pt to be admitted under Dr. Vale's service. Pending admission. 05/10/19 00:10 Dr. Vale expressed concern for possible stent thrombosis, pt still certain she had a stent placed at [facility]. Admitting team stated they would like to make additional phone calls. 05/10/19 02:00 Admitting team spoke with Dr. Atkins. Pt to be admitted to [facility]. *DC/Admit/Observation/Transfer Diagnosis at time of Disposition: Chest pain - Discharge Dispostion Condition at time of disposition: Guarded Decision to Admit order: Yes - Referrals - Patient Instructions - Post Discharge Activity
[2019-05-09 19:22] LABS: ALBUMIN 3.2 g/dl (3.4-5.0); BILIRUBIN,TOTAL 0.3 mg/dL (0.2-1); BLOOD UREA NITROGEN 15.6 mg/dL (7-18); CALCIUM 9.6 mg/dL (8.5-10.1); CREATININE 1.1 mg/dL (0.55-1.3); N-TERMINAL BNP 492.6 pg/ml (5-125); POTASSIUM 4.7 mmol/L (3.5-5.1); TOT PROT 6.6 g/dl (6.4-8.2)
[2019-05-09] MEDS ORDERED: ACETAMINOPHEN 1000 MG/100 ML VIAL (NON FORMULARY) IVPB ONE (19:27)
[2019-05-09] MEDS ORDERED: FOLIC ACID INJECTION - 1 MG, THIAMINE HCL 100 MG, MULTIVIT INJECTION ADULT 10 ML in SOD... IVPB ONE (19:27)
[2019-05-09] MEDS ORDERED: ACETAMINOPHEN INJECTION 100 ML IVPB ONE (19:34)
[2019-05-09 20:46] VITALS: BMI 27.1
--- NOTE | 2019-05-09 22:27 | PDOC ---
Documentation entered by Cyndi Trejo SCRIBE, acting as scribe for Taty Pimentel MD. Taty Pimentel MD: This documentation has been prepared by the karla, Cyndi Trejo SCRIBE, under my direction and personally reviewed by me in its entirety. I confirm that the documentation accurately reflects all work, treatment, procedures, and medical decision making performed by me. Attending Attestation - Resident Resident Name: LiHan - ED Attending Attestation I have performed the following: I have examined & evaluated the patient, The case was reviewed & discussed with the resident, I agree w/resident's findings & plan, Exceptions are as noted - HPI HPI: 05/09/19 21:40 Ms. Porter is a 58 yo F who presents to the ER with a complaint of chest pain Patient has a h/o Afib on xarelto, CAD s/p cath x 2 (most recently on 04/30/19, received 1 stent), CHF (told LV does not squeeze well), HTN, HLD, s/p AICD, COPD on home oxygen, polysubstance abuse, depression, anxiety, bipolar schizoaffective who was transferred to [facility] from [facility] ( where she had her most sent) to [facility] for detox on 05/08. Pt reports that today, she developed chest pain which has been intermittent, is rated 9/10, no associated radiation, no alleviating factors. Pt apparently also had a fall with head trauma? No loc. Pt reports medication compliance (because she was sent from the hospital to detox) Patient asking for pain medication. 05/09/19 21:52 - Physicial Exam PE: 05/09/19 21:39 GENERAL: The patient is in no acute distress. ENT: Ears normal, nares patent, oropharynx clear without exudates. Moist mucous membranes. Edentuous NECK: Normal range of motion, supple, no nuchal rigidity LUNGS: Breath sounds equal, clear to auscultation bilaterally. No wheezes, and no crackles. HEART:Regular rate and rhythm, normal S1 and S2 without murmur, rub or gallop. ABDOMEN: Soft, nontender, normoactive bowel sounds. EXTREMITIES: Normal range of motion, no edema. NEUROLOGICAL: Cranial nerves II through XII grossly intact. Normal speech. No focal neurological deficits. SKIN: Warm, Dry, normal turgor, no rashes or lesions noted. 05/09/19 21:51 - Medical Decision Making 05/09/19 21:58 58 yo F presenting with a complaint of chest pain pt also reporting a recent stent DD includes but is not limited to: ACS, pericarditis, musculoskeletal pain Will do: Labs, EKG, CXR, CT head Will contact [facility] as patient may need to be transferred (high risk in stent re stenosis) Per [facility] pt was last there in March on a 1:1 for psych (did complain of chest pain) Call placed to [place], pt was last there on April 23 and discharged April 24 05/09/19 22:01 Laboratory Tests 05/09/19 05/09/19 05/09/19 18:32 18:32 18:32 WBC 3.5 L Hgb 10.9 Hct 32.7 Plt Count 202 BUN 15.6 Creatinine 1.1 Creatine Kinase 143 Troponin I < 0.02 B-Natriuretic Peptide 492.6 [address] CT - microvascular ischemic changes, no ICH CT c spine - normal alignment, degenerative changes, no fracture or dislocation Will plan to admit as opposed to transfer as it appears pt was NOT recently stented at [facility]? Received call from [facility] Pt was a walk in to their facility, NOT a transfer from [place] She NEVER told them about recent stenting It is still unclear to me if this patient came from [facility] or if she had recent stenting Pt reports pain Will give Fentanyl (to prevent decrease in BP) Was given Aspirin this morning I DO NOT see plavix on her medications given at [facility] 05/10/19 00:39
[2019-05-09] MEDS ORDERED: ASPIRIN 81 MG CHEWABLE TABLETS PO ONE (22:57)
--- NOTE | 2019-05-10 01:45 | PN ---
Teaching Attending Note Name of Resident: Jg Meehan ATTENDING PHYSICIAN STATEMENT I saw and evaluated the patient. I reviewed the resident's note and discussed the case with the resident. I agree with the resident's findings and plan as documented. Seen and examined; please refer to resident note for further historical information. Briefly, this is a 58 y/o female presenting from [facility] with active chest pain at rest; similar to prior AL not improved or made worse with anything. She was brought to [facility] from [facility] and tells me she was admitted there recently for EP study and cath. We called [facility] and she has multiple different records (some at their facility have been merged, some have not) and per the transfer center she also has admissions at other [facility] including [facility]. She insists she had PCI with stent placement via groin approach; she tells us that it was recent admission. The record we were able to review with an ER provider over the phone at [facility] endorsed use of xarelto and recent EP study with 05/08 DC but did not mention recent cath. She does have ST-T changes seen on repeat EKGs done in the ER (dep/inv in lateral leads) . Her med list was not in her [facility] chart; she has a recent DC letter without plavix that was in her personal belongings. She has complex medical history including Severe HFrEF with ED 20% s/p AICD, CAD s/p stated PCI (prior notes from [facility] [has seen 2 groups here in the past], last cath we have documented here was >3 years ago; no report but stated as nonobstruction but she insists she just had one). She is frankly unsure if she is supposed to be on plavix or not. Multiple issues with cocaine-induced CP in the past. She does not recall the name of her sign language teacher. VS, labs, imaging reviewed NAD, AAO, resting in bed RRR s1/2 with systolic murmur NT ND +BS Lungs CTAB, w/ sym exp CN2-12 wnl, no fnd Normal mood, appropriate behavior Multiple EKGs reviewed; discussed with ER. Changes in V5/V6 noted between studies during time she stated continued chest pain. CXR reviewed ASSESSMENT AND PLAN: # Unstable Angina with stated hx CAD (Negative troponin but EKG changes on 2 studies obtained in ER (TWI and ST depression V5-V6) in the setting of continued chest pain at rest; we are unclear if she was recently stented at [facility] [no records but multiple charts, conflicting accounts, other recent admits [facility]. ] She insists that she was stented x1 during a recent admission this month and it is unreliable regarding her medication compliance (ie: antiplatelets) so there is risk, if she was restented, of restenosis. Given the EKG changes with CP this is worrying, though negative trops are reassuring. Can monitor tele, obtain repeat labs, and consult cardiology. Has been here in the past and seen by 2 different [facility] groups; cocaine chest pain being etiology at that time 3+ years ago. Was in rehab but no use within past week due to hospitalization/ institutionalization but did have use prior. # HFrEF s/p AICD (stated severe from [facility]; old notes 2+ years ago here state non- ischemic dilated cm with moderate degree of systolic LV dysfunction; euvolemic here not requiring O2 and not SOB so will hold off on further diuresis. Montior fluid status carefully. Low salt and fluid intake recommended, otpimize electrolytes (K@4, Mg@2)) # P-AF (on xarelto, amiodarone) # Cocaine abuse (Was at [facility]; no recent use for at least 2+ days making chest pain 2/2 cocaine less likely) # ETOH abuse (Thiamine, folate, detox referral at [facility]) # History of COPD # Neutropenia (Chronic; consider heme consult. Could be related to cocaine use. Seriology for HIV, etc. checked at [facility]; pending.) Full Code
[2019-05-10] MEDS ORDERED: RIVAROXABAN 20 MG TABLET PO ONE (01:55)
[2019-05-10] MEDS ORDERED: ASPIRIN 81 MG CHEWABLE TABLETS ONE (03:51)
--- NOTE | 2019-05-10 05:41 | HP ---
CHIEF COMPLAINT: Unstable angina for the past 1day PCP: None HISTORY OF PRESENT ILLNESS: The patient is a 58 year old female, with past medical history significant for CHF, CAD, A Fib, COPD, HTN, and HLD. She presents from [facility], where she was admitted for detox from crack cocaine, with unstabe angina for one day. The chest pain was initially intermittent but is now persistent, 9/10 in intensity, with no associated radiation, no alleviating or aggravating factors. According to the patient, she was discharged from [facility] on 05/08 after PCI and stent placement. Records were obtained from [facility], which indicate that she was admitted there, but there is no mention of PCI. Her doctor at [facility] was Dr. Munoz. Previous Echo shows EF of 20%. ER course was notable for: (1) EKG showing ST-T changes and TWI (2) Trops 0.02 2x (3) BNP 492.6 Recent Travel: None PAST MEDICAL HISTORY: CHF, CAD, A Fib, COPD, HTN, and HLD PAST SURGICAL HISTORY: PCI with stent placement Social History: Smoking: Alcohol: Drugs: crack cocaine, $100 per day Family History: Allergies LARA Inhibitors Allergy (Verified 05/09/19 17:05) enalaprilat dihydrate [From Vasotec] Allergy (Verified 05/09/19 17:05) shellfish derived Allergy (Verified 05/09/19 17:05) HOME MEDICATIONS: Home Medications Medication Instructions Recorded Albuterol Sulfate Inhaler - 2 inh IH Q4H PRN 01/09/13 [Ventolin HFA Inhaler -] Aripiprazole [Abilify -] 30 mg PO DAILY 01/09/13 Salmeterol/Fluticasone [Advair 1 inh IH BID 01/09/13 250Mcg/50Mcg -] Amiodarone HCl [Cordarone -] 200 mg PO DAILY 08/01/16 Aspirin [ASA -] 81 mg PO DAILY tab.chew 08/02/16 Furosemide [Lasix -] 20 mg PO DAILY 12/21/16 Losartan Potassium [Cozaar -] 25 mg PO DAILY 12/21/16 traZODone HCL [Desyrel -] 150 mg PO HS 12/21/16 Fluoxetine HCl 20 mg PO DAILY 05/08/19 Metformin HCl [Metformin HCl ER] 500 mg PO DAILY 05/08/19 Rivaroxaban [Xarelto -] 20 mg PO HS 05/08/19 REVIEW OF SYSTEMS CONSTITUTIONAL: Absent: fever, chills, diaphoresis, generalized weakness, malaise, loss of appetite, weight change HEENT: Absent: rhinorrhea, nasal congestion, throat pain, throat swelling, difficulty swallowing, mouth swelling, ear pain, eye pain, visual changes CARDIOVASCULAR: chest pain, Absent: syncope, palpitations, irregular heart rate, lightheadedness, peripheral edema RESPIRATORY: Absent: cough, shortness of breath, dyspnea with exertion, orthopnea, wheezing, stridor, hemoptysis GASTROINTESTINAL: Absent: abdominal pain, abdominal distension, nausea, vomiting, diarrhea, constipation, melena, hematochezia GENITOURINARY: Absent: dysuria, frequency, urgency, hesitancy, hematuria, flank pain, genital pain MUSCULOSKELETAL: Absent: myalgia, arthralgia, joint swelling, back pain, neck pain SKIN: Absent: rash, itching, pallor HEMATOLOGIC/IMMUNOLOGIC: Absent: easy bleeding, easy bruising, lymphadenopathy, frequent infections ENDOCRINE: Absent: unexplained weight gain, unexplained weight loss, heat intolerance, cold intolerance NEUROLOGIC: Absent: headache, focal weakness or paresthesias, dizziness, unsteady gait, seizure, mental status changes, bladder or bowel incontinence PSYCHIATRIC: Absent: anxiety, depression, suicidal or homicidal ideation, hallucinations. PHYSICAL EXAMINATION Vital Signs - 24 hr 05/09/19 05/09/19 05/09/19 16:05 19:52 23:04 Temperature 98.0 F 98.0 F Pulse Rate 82 Pulse Rate [ 60 Left] Respiratory 16 17 Rate Blood Pressure 98/62 Blood Pressure 88/51 L 100/66 [Left] Blood Pressure 109/66 [Right] O2 Sat by Pulse 100 95 Oximetry (%) 05/10/19 04:44 Temperature 97.4 F L Pulse Rate Pulse Rate [ 61 Left] Respiratory 18 Rate Blood Pressure Blood Pressure [Left] Blood Pressure 105/75 [Right] O2 Sat by Pulse 99 Oximetry (%) GENERAL: AOx3 HEAD: Normal with no signs of trauma. EYES: Pupils equal, round and reactive to light, extraocular movements intact, sclera anicteric, conjunctiva clear. No lid lag. EARS, NOSE, THROAT: Ears normal, nares patent, oropharynx clear without exudates. Moist mucous membranes, missing some teeth NECK: Normal range of motion, supple without lymphadenopathy, JVD, or masses. LUNGS: Breath sounds equal, clear to auscultation bilaterally. No wheezes, and no crackles. No accessory muscle use. HEART: Regular rate and rhythm, normal S1 and S2 without murmur, rub or gallop. ABDOMEN: Soft, nontender, not distended, normoactive bowel sounds, no guarding, no rebound, no masses. No hepatomegaly or splenomegaly. MUSCULOSKELETAL: Normal range of motion at all joints. No bony deformities or tenderness. No CVA tenderness. UPPER EXTREMITIES: 2+ pulses, warm, well-perfused. No cyanosis. No clubbing. No peripheral edema. LOWER EXTREMITIES: 2+ pulses, warm, well-perfused. No calf tenderness. No peripheral edema. NEUROLOGICAL: Cranial nerves II-XII intact. Normal speech. Normal gait. PSYCHIATRIC: Cooperative. Good eye contact. Appropriate mood and affect. SKIN: Warm, dry, normal turgor, no rashes or lesions noted, normal capillary refill. Laboratory Results - last 24 hr 05/09/19 05/09/19 05/09/19 18:32 18:32 18:32 WBC 3.5 L RBC 3.56 L Hgb 10.9 Hct 32.7 MCV 91.9 MCH 30.6 MCHC 33.3 RDW 15.7 H Plt Count 202 MPV 9.9 Absolute Neuts (auto) 1.2 L Neutrophils % 34.3 L Lymphocytes % 52.3 H Monocytes % 10.9 H Eosinophils % 0.6 Basophils % 1.9 D Nucleated RBC % 0 Sodium 143 Potassium 4.7 Chloride 106 Carbon Dioxide 31 Anion Gap 6 L BUN 15.6 Creatinine 1.1 Est GFR (CKD-EPI)AfAm 65.00 Est GFR (CKD-EPI)NonAf 56.08 Random Glucose 83 Calcium 9.6 Total Bilirubin 0.3 AST 29 ALT 22 Alkaline Phosphatase 53 Creatine Kinase 143 Troponin I < 0.02 B-Natriuretic Peptide 492.6 H Total Protein 6.6 Albumin 3.2 L 05/09/19 22:00 WBC RBC Hgb Hct MCV MCH MCHC RDW Plt Count MPV Absolute Neuts (auto) Neutrophils % Lymphocytes % Monocytes % Eosinophils % Basophils % Nucleated RBC % Sodium Potassium Chloride Carbon Dioxide Anion Gap BUN Creatinine Est GFR (CKD-EPI)AfAm Est GFR (CKD-EPI)NonAf Random Glucose Calcium Total Bilirubin AST ALT Alkaline Phosphatase Creatine Kinase Troponin I < 0.02 B-Natriuretic Peptide Total Protein Albumin ASSESSMENT/PLAN: #Unstable angina - EKG showed TWI and ST depression in V5 V6 - Trops negative 2x, 3rd pending. This is reassuring, but successive EKG changes means patient is still high risk for restenosis - Cardio consult placed to discuss keeping patient here or transferring to facility with semiconductor lab technician - Cocaine induced cardiomyopathy unlikely because patient was hospitalized and then at [facility] for the past 2 weeks, cocaine use unlikely during this time. - Tele monitoring to monitor cardiac function #Hx of CHF - Euvolemic, does not need - Monitor fluids - no SOB, does not require oxygen. Will order if her condition deteriorates #Neutropenia - consider heme consult #Hx of alcohol abuse - Thiamine, Folate #FEN - Monitor K and Mg #DVT PE - On xarelto ATTENDING PHYSICIAN STATEMENT I saw and evaluated the patient. I reviewed the resident's note and discussed the case with the resident. I agree with the resident's findings and plan as documented. SUBJECTIVE: OBJECTIVE: ASSESSMENT AND PLAN:
[2019-05-10 07:21] LABS: BASO % 1.1 % (0-2.0); EOS % 0.6 % (0-4.5); HEMATOCRIT 32.9 % (32.4-45.2); HEMOGLOBIN 10.8 GM/dL (10.7-15.3); LYMPH % 55.8 % (8-40); MCH 30.3 pg (25.7-33.7); MCHC 32.8 g/dl (32.0-36.0); MEAN CELL VOLUME 92.3 fl (80-96); MEAN PLT VOLUME 10.1 fl (7.5-11.1); MONO % 8.6 % (3.8-10.2); NEUT % 33.9 % (42.8-82.8); PLATELET COUNT 189 K/MM3 (134-434); RBC 3.56 M/mm3 (3.60-5.2); RDW 15.9 % (11.6-15.6)
[2019-05-10 07:27] LABS: BILIRUBIN,TOTAL 0.3 mg/dL (0.2-1); BLOOD UREA NITROGEN 16.1 mg/dL (7-18); CALCIUM 9.2 mg/dL (8.5-10.1); CREATININE 1.2 mg/dL (0.55-1.3); POTASSIUM 4.4 mmol/L (3.5-5.1); TOT PROT 6.5 g/dl (6.4-8.2)
[2019-05-10] MEDS ORDERED: ALBUTEROL SO4 8 GM HFA INHALER IH PRN (07:56)
[2019-05-10] MEDS ORDERED: ACETAMINOPHEN 1000 MG/100 ML VIAL (NON FORMULARY) IVPB ONE (09:08)
[2019-05-10] MEDS ORDERED: ACETAMINOPHEN INJECTION 100 ML IVPB ONE (09:14)
[2019-05-10] MEDS ORDERED: ASPIRIN 81 MG CHEWABLE TABLETS PO SCH (10:00)
[2019-05-10] MEDS ORDERED: THIAMINE HCL 100 MG TABLET (FP) PO SCH (10:00)
[2019-05-10] MEDS ORDERED: FOLIC ACID 1 MG TABLET (FP) PO SCH (10:00)
[2019-05-10] MEDS ORDERED: FUROSEMIDE 20 MG TABLET (FP) PO SCH (10:00)
[2019-05-10] MEDS ORDERED: FLUoxetine HCL 20 MG CAPSULE (FP) PO SCH (10:00)
[2019-05-10] MEDS ORDERED: LOSARTAN POTASSIUM 25 MG TABLET PO SCH (10:00)
[2019-05-10] MEDS ORDERED: FLUTICASONE/SALMETEROL 100 MCG/50 MCG DISKUS IH SCH (10:00)
[2019-05-10] MEDS ORDERED: AMIODARONE HCL 200 MG TABLET (FP) PO SCH (10:00)
[2019-05-10] MEDS ORDERED: AMIODARONE HCL 200 MG TABLET (FP) ONE (10:34)
--- NOTE | 2019-05-10 11:22 | EKG ---
Test Reason : Blood Pressure : / mmHG Vent. Rate : 061 BPM Atrial Rate : 061 BPM P-R Int : 192 ms QRS Dur : 132 ms QT Int : 458 ms P-R-T Axes : 058 236 076 degrees QTc Int : 461 ms NORMAL SINUS RHYTHM POSSIBLE LEFT ATRIAL ENLARGEMENT RIGHT SUPERIOR AXIS DEVIATION AV SEQUENTIAL OR DUAL CHAMBER ELECTRONIC PACEMAKER T WAVE ABNORMALITY, CONSIDER LATERAL ISCHEMIA ABNORMAL ECG WHEN COMPARED WITH ECG OF 10-MAY-2019 02:12, COMPARED TO EKG NO SIGNIFICANT CHANGE IS FOUND Confirmed by LUPILLO CORTEZ, NIRMAL ([id number]) on 05/10/2019 11:21:59 AM Referred By: Confirmed By:NIRMAL WESLEY MD
--- NOTE | 2019-05-10 11:24 | EKG ---
Test Reason : Blood Pressure : / mmHG Vent. Rate : 067 BPM Atrial Rate : 067 BPM P-R Int : 206 ms QRS Dur : 132 ms QT Int : 466 ms P-R-T Axes : 059 210 072 degrees QTc Int : 492 ms NORMAL SINUS RHYTHM LEFT ATRIAL ENLARGEMENT AV SEQUENTIAL OR DUAL CHAMBER ELECTRONIC PACEMAKER ABNORMAL ECG WHEN COMPARED WITH ECG OF 09-MAY-2019 22:44, PREMATURE VENTRICULAR COMPLEXES ARE NO LONGER PRESENT COMPARED TO EKG NO SIGNIFICANT CHANGE IS FOUND Confirmed by LUPILLO CORTEZ, NIRMAL ([id number]) on 05/10/2019 11:24:12 AM Referred By: Confirmed By:NIRMAL WESLEY MD
--- NOTE | 2019-05-10 11:28 | EKG ---
Test Reason : Blood Pressure : / mmHG Vent. Rate : 067 BPM Atrial Rate : 067 BPM P-R Int : 200 ms QRS Dur : 134 ms QT Int : 476 ms P-R-T Axes : 061 236 074 degrees QTc Int : 502 ms SINUS RHYTHM WITH OCCASIONAL PREMATURE VENTRICULAR COMPLEXES POSSIBLE LEFT ATRIAL ENLARGEMENT RIGHT SUPERIOR AXIS DEVIATION NON-SPECIFIC INTRA-VENTRICULAR CONDUCTION BLOCK , CANNOT EXCLUDE AV SEQUENTIAL OR DUAL CHAMBER ELECTRONIC PACEMAKER T WAVE ABNORMALITY, CONSIDER LATERAL ISCHEMIA ABNORMAL ECG WHEN COMPARED WITH ECG OF 09-MAY-2019 16:38, PREMATURE VENTRICULAR COMPLEXES ARE NOW PRESENT no Confirmed by LUPILLO CORTEZ, NIRMAL ([id number]) on 05/10/2019 11:28:28 AM Referred By: Confirmed By:NIRMAL WESLEY MD
--- NOTE | 2019-05-10 11:40 | EKG ---
Test Reason : Blood Pressure : / mmHG Vent. Rate : 067 BPM Atrial Rate : 067 BPM P-R Int : 214 ms QRS Dur : 136 ms QT Int : 472 ms P-R-T Axes : 035 230 067 degrees QTc Int : 498 ms SINUS RHYTHM WITH 1ST DEGREE A-V BLOCK LEFTWARD AXIS NON-SPECIFIC INTRA-VENTRICULAR CONDUCTION DELAY ABNORMAL ECG WHEN COMPARED WITH ECG OF 08-MAY-2019 16:47, SINUS RHYTHM HAS REPLACED ELECTRONIC ATRIAL PACEMAKER RECOMMEND REPEAT TRACING Confirmed by LUPILLO CORTEZ, NIRMAL ([id number]) on 05/10/2019 11:39:48 AM Referred By: Confirmed By:NIRMAL WESLEY MD
--- NOTE | 2019-05-10 13:53 | DS ---
Physical Examination Vital Signs: Vital Signs Temperature 97.5 F L 05/10/19 08:06 Pulse Rate 71 05/10/19 10:50 Respiratory Rate 18 05/10/19 10:50 Blood Pressure 142/90 05/10/19 10:50 O2 Sat by Pulse Oximetry (%) 100 05/10/19 10:50 Findings/Remarks: No fever or chills. No HAYES. chest pain is better. SOB but this is her base line Exam : EOMI nl . no facial droop. NAD CV: RRR Lungs: CTAB Abd: soft, NT, ND , NLBS Ext " No edema No JVD Labs: CBC, BMP 05/10/19 06:15 05/10/19 06:15 Discharge Summary Reason For Visit: CHEST PAIN Current Active Problems Atypical chest pain (Acute) AICD (automatic cardioverter/defibrillator) present (Chronic) Alcohol dependence (Chronic) Atrial fibrillation (Chronic) Chronic heart failure (Chronic) Cocaine dependence, uncomplicated (Chronic) Depression (Chronic) Schizoaffective disorder (Chronic) Hospital Course: 58 y/o lady with h/o HTN, HLP, non ischemic cariomyopathy, A fib, cocain and alcohol use , AICD, who was sent from [facility] . Her w/u here included serial EKGs and trop . EKGs showed ST depression and TWIn in lateral leads but this was due to lead placement error after d/w business sales consultant. her cp was thought ot be non cardiac and her trops were Neg. she was continued on her home meds and lipitor was added. she returned to [facility] for rehab and will f/u with her business sales consultant Dr. Venkata Morgan in [facility]. she did not show any signs of withdrawal . her meds were confirmed with her . she has chronic leukopenia likely due to alcohol use . she will need to follow as out pt Condition: Improved - Instructions Diet, Activity, Other Instructions: you are being discharged back to [facility] rehab. your chest pain is unlikely due to your heart. - continue all your home medications as befoer admission - the only new medications is lipitor for your cholesterol. it can cause abnormal liver enzymes and muscle weakness and pain, so you need to follow with your primary care doctor and business sales consultant fro follow up on that - please refrain form alcohol and cocaine - please follow with your business sales consultant Dr. venkata Morgan in [facility] after your rehab - your cholesterol needs to be checked in 6 weeks - sampson [email or web address] Disposition: HOME - Home Medications Comprehensive Discharge Medication List: Ambulatory Orders Albuterol Sulfate Inhaler - [Ventolin HFA Inhaler -] 2 inh IH Q4H PRN 01/09/13 Aripiprazole [Abilify -] 30 mg PO DAILY 01/09/13 Salmeterol/Fluticasone [Advair 250Mcg/50Mcg -] 1 inh IH BID 01/09/13 Amiodarone HCl [Cordarone -] 200 mg PO DAILY 08/01/16 Aspirin [ASA -] 81 mg PO DAILY tab.chew 08/02/16 Furosemide [Lasix -] 20 mg PO DAILY 12/21/16 Losartan Potassium [Cozaar -] 25 mg PO DAILY 12/21/16 traZODone HCL [Desyrel -] 150 mg PO HS 12/21/16 Fluoxetine HCl 20 mg PO DAILY 05/08/19 Metformin HCl [Metformin HCl ER] 500 mg PO DAILY 05/08/19 Rivaroxaban [Xarelto -] 20 mg PO HS 05/08/19 Atorvastatin Ca [Lipitor] 40 mg PO HS #30 tablet 05/10/19 Thiamine HCl [Vitamin B1 -] 100 mg PO DAILY tablet 05/10/19 This patient is new to me today: Yes Date on this admission: 05/10/19 Emergency Visit: Yes ED Registration Date: 05/09/19 Care time: The patient presented to the Emergency Department on the above date and was hospitalized for further evaluation of their emergent condition. Critical Care patient: No - Discharge Referral Referred to [facility] No
[2019-05-10 15:17] VITALS: BP 118/69; PULSE 68; TEMP 97.7
--- NOTE | 2019-05-10 15:24 | PN ---
Progress Note (short form) - Note Progress Note: Chief Complaint: Events noted, notes reviewed, chest pain syndrome atypical for coronary artery disease angina pectoris, partial alleviation with Tylenol therapy administration, denies any dyspnea History of Present Illness: Seen and examined earlier today in the emergency room as a telemetry hold. Full consult dictated Medications: Current Medications Albuterol Sulfate (Ventolin Hfa Inhaler -) 2 puff IH Q4H PRN PRN Reason: SHORTNESS OF BREATH Amiodarone HCl (Cordarone -) 200 mg PO DAILY [facility] Last Admin: 05/10/19 10:50 Dose: 200 mg Aspirin (Asa -) 81 mg PO DAILY [facility] Last Admin: 05/10/19 10:17 Dose: 81 mg Atorvastatin Calcium (Lipitor -) 40 mg PO HS [facility] Fluoxetine HCl (Prozac -) 20 mg PO DAILY [facility] Last Admin: 05/10/19 10:17 Dose: 20 mg Folic Acid (Folic Acid -) 1 mg PO DAILY [facility] Last Admin: 05/10/19 10:50 Dose: Not Given Furosemide (Lasix -) 20 mg PO DAILY [facility] Last Admin: 05/10/19 10:50 Dose: 20 mg Losartan Potassium (Cozaar -) 25 mg PO DAILY [facility] Last Admin: 05/10/19 10:50 Dose: 25 mg Rivaroxaban (Xarelto) 20 mg PO [facility] Fluticasone/Salmeterol (Advair 100mcg/50mcg -) 1 puff IH BID [facility] Last Admin: 05/10/19 10:50 Dose: 1 puff Thiamine HCl (Vitamin B1 -) 100 mg PO DAILY [facility] Last Admin: 05/10/19 10:50 Dose: Not Given Patient's medical therapy included the following during recent hospitalization at [facility], Amiodarone 200 mg once a day, Lasix 20 mg once a day, Cozaar 25 mg once a day, Fluoxetine 10 mg once a day, Trazodone 150 mg once a day, Ecotrin 81 mg once a day, Xarelto 20 mg once a day,Protonix 40 mg once a day, nicotine transdermal patch 14 mg once daily, Aripiprazole 30 mg once a day. Review of Systems Constitutional: denies: Chills and Fever Cardiovascular: as noted above Respiratory: denies: Cough or Sputum Production Gastrointestinal: denies: Nausea, Vomiting, Diarrhea, Constipation or Abdominal Pain Genitourinary: denies: Dysuria Musculoskeletal: denies: Joint Pain Neurological: denies: Dizziness or Headache Vital Signs: Last Vital Signs Temp Pulse Resp BP Pulse Ox 97.7 F 68 18 118/69 100 05/10/19 14:40 05/10/19 14:40 05/10/19 14:40 05/10/19 14:40 05/10/19 14:40 Intake & Output 05/07/19 05/08/19 05/09/19 05/10/19 23:59 23:59 23:59 23:59 Weight 168 lb Constitutional: No Distress, Calm Respiratory: Clear to A&P Bilaterally Cardiovascular: S1 S2 Regular Rate and Rhythm Grade 2-3/6 SM Apical Gastrointestinal: Soft Benign Normal Bowel Sounds Ext: Negative Edema Labs: CBC, BMP 05/10/19 06:15 05/10/19 06:15 Troponin, BNP 05/09/19 05/09/19 05/09/19 18:32 18:32 22:00 Troponin I < 0.02 < 0.02 B-Natriuretic Peptide 492.6 H 05/10/19 05:29 Troponin I < 0.02 B-Natriuretic Peptide Hepatic Panel Total Bilirubin 0.3 mg/dL (0.2-1) 05/10/19 06:15 AST 24 U/L (15-37) 05/10/19 06:15 ALT 21 U/L (13-61) 05/10/19 06:15 Alkaline Phosphatase 51 U/L (45-117) 05/10/19 06:15 Albumin 3.0 g/dl (3.4-5.0) L 05/10/19 06:15 Assessment/Plan ASSESSMENT: 1. Chest pain syndrome clinical presentation of which is atypical for angina pectoris in a patient with known history of coronary artery disease non- obstructive coronary artery disease on prior coronary angiography (multiple admissions with cocaine associated chest discomfort) 2. Non-ischemic dilated cardiomyopathy with clinical class I [place] Heart Association classification left ventricular failure (severe systolic left ventricular dysfunction with LVEF of 20%), compensated/euvolemic 3. History of ventricular fibrillation post ICD implantation 4. Paroxysmal atrial fibrillation [id number] score of 3 on anticoagulation therapy with Xarelto 5. HTN 6. Hypercholesterolemia 7. History of schizo-affective disorder 8. History of poly-substance abuse PLAN: 1. Continue Amiodarone therapy 2. Continue Cozaar therapy, to consider Entresto therapy initiation unless it is absolutely contraindicated 3. Consider the addition of Norvasc therapy, avoid beta yumiko use in view of patient's recurrent history of cocaine abuse 4. If recurrent chest discomfort is noted with the above-noted addition of Norvasc therapy would recommend addition of nitrates/Imdur and/or Ranexa therapies 5. Continue Lasix therapy and may need to add Aldactone therapy as needed 6. Continue Xarelto and Ecotrin therapies with caution and close monitoring of CBC 7. No additional cardiovascular evaluation or testing is recommended at this point, patient was advised compliance with medical therapy administration and regular followup with her physicians in [facility]; patient can be transferred to drug rehabilitation Herman Atkins M.D.
--- NOTE | 2019-05-10 19:40 | CONS ---
DATE OF CONSULTATION: 05/10/2019 CONSULTATION REQUESTED BY: Hospitalist service. CHIEF COMPLAINT: Chest pain, cardiovascular evaluation. History was obtained from the chart, medical records from [facility], and [facility], where the patient was recently hospitalized. A 58-year-old female of descent, with known history of chest pain syndrome, coronary artery disease, nonobstructive coronary artery disease on prior coronary angiography, nonischemic dilated cardiomyopathy, with severe systolic left ventricular dysfunction and chronic class 1 to 2 [place] [employer] classification left ventricular failure, post ICD implantation, paroxysmal atrial fibrillation, CHADS-VASc score of 3, on chronic anticoagulation therapy, hypertensive cardiovascular disease, hypercholesterolemia, schizoaffective disorder, polysubstance abuse including cocaine abuse, who presented to [facility] from [facility] with chest discomfort which has been noted over the last several days. Chest discomfort was exacerbated by certain movements. The patient did not report any exacerbation with physical exertion. Patient denied any associated symptomatology, i.e., diaphoresis. Patient continues to report persistence of dyspnea with mild to moderate physical exertion. Patient denied any orthopnea, paroxysmal nocturnal dyspnea, or peripheral edema. Patient denied any palpitations, dizziness, lightheadedness, or syncope. Patient reports fatigue and tiredness. PAST MEDICAL HISTORY: Coronary artery disease, nonobstructive coronary artery disease on prior coronary angiography, angina pectoris, nonischemic dilated cardiomyopathy with severe systolic left ventricular dysfunction, LVEF of 20%, with chronic congestive heart failure class 0 to 1, history ventricular fibrillation, post ICD implantation, paroxysmal atrial fibrillation, [id number] score of 3, on anticoagulation therapy, hypertensive cardiovascular disease, hypercholesterolemia, schizoaffective disorder, history of polysubstance abuse including cocaine. SOCIAL HISTORY: As noted above, polysubstance abuse including cocaine. FAMILY HISTORY: Positive coronary artery disease. Allergies to LARA INHIBITORS and SHELLFISH. Medical therapy currently includes albuterol nebulizer, amiodarone 200 mg once a day, aspirin 81 mg once a day, Lipitor 40 mg once a day, Prozac 20 mg once a day, folic acid 1 mg once a day, Lasix 20 mg once a day, Cozaar 25 mg once a day, Xarelto 20 mg once a day, Advair Diskus 1 puff twice a day, thiamine 100 mg once daily. Medical therapy during her recent hospitalization at [facility] included amiodarone 200 mg once a day, Lasix 20 mg once a day, Cozaar 25 mg once a day, Prozac 10 mg once a day, trazodone 150 mg once a day, Ecotrin 81 mg once a day, Xarelto 20 mg once a day, Protonix 40 mg once a day, nicotine transdermal patch, and Abilify 30 mg once daily. REVIEW OF SYSTEMS: Head and Neck: Denies headache, photophobia, blurring of vision. Respiratory: No cough or sputum production. Cardiovascular: As noted above. Gastrointestinal: Denies nausea, vomiting, diarrhea, abdominal discomfort. Musculoskeletal: No symptoms reported. PHYSICAL EXAMINATION: Vital Signs: Blood pressure is 118/69 mmHg. Pulse rate is 68 beats per minute. Head and Neck: Pupils equal, react to light and accommodation. Extraocular muscles are intact. Anicteric sclerae. Negative JVD. No bruit appreciated. Chest: Clear to auscultation and percussion. Cardiovascular: S1, S2 regular. Grade 2 to 3/6 systolic apical murmur. Abdomen: Soft, benign. Normoactive bowel sound. Extremities: Negative edema, 1+ distal pulses. Electrocardiogram reveals sinus rhythm with AV sequential ventricular pacing, fusion beats, and ST segment and T-wave abnormality. CBC revealed white cell count 3.0, hemoglobin 10.8, platelets 189. Basic metabolic profile revealed sodium 142, potassium 4.4, BUN 16.1, creatinine 1.2, glucose 82. BNP was 492.6, troponin less than 0.02. ASSESSMENT: 1. Chest pain syndrome, clinical presentation of which is atypical for angina pectoris in a patient with known history of coronary artery disease, nonobstructive coronary artery disease on prior coronary angiography, multiple admissions with cocaine-associated chest discomfort. 2. Nonischemic dilated cardiomyopathy with clinical class 1 [place] Heart [employer] classification left ventricular failure, severe systolic left ventricular dysfunction with left ventricular ejection fraction of 20%, clinically compensated/euvolemic. 3. History of ventricular fibrillation, post ICD implantation. 4. Paroxysmal atrial fibrillation, [id number] score of 3, on anticoagulation therapy with Xarelto. 5. Hypertension. 6. Hypercholesterolemia. 7. History of schizoaffective disorder. 8. History of polysubstance abuse including cocaine. PLAN: 1. Continuation of amiodarone therapy. 2. Continuation of Cozaar therapy. Ideally, Entresto therapy initiation is recommended in view of the above-noted history. 3. Consider the addition of Norvasc therapy and avoidance of beta yumiko therapy use in view of patient's recurrent history of cocaine abuse. 4. If recurrent chest discomfort is noted with the above-noted addition of Norvasc therapy, would recommend addition of nitrates/Imdur and/or Ranexa therapy. 5. Continuation of Lasix therapy and may need to add Aldactone therapy as needed. 6. Continuation of Xarelto and Ecotrin therapy with caution and close monitoring of CBC. 7. No additional cardiovascular evaluation or testing is recommended at this point. Patient was advised compliance with medical therapy administration and regular followup with her physicians in [facility]. Patient can be transferred to drug rehabilitation. Thank you for the kind referral. NIRMAL WESLEY M.D. [place]/[id number]
[2019-05-10] MEDS ORDERED: ATORVASTATIN CA 40 MG TABLET (FP) PO SCH (22:00)
[2019-05-10] MEDS ORDERED: RIVAROXABAN 20 MG TABLET PO SCH (22:00)
[2019-05-11] MEDS ORDERED: RIVAROXABAN 20 MG TABLET PO SCH (06:35)
== END 2019-05-10 14:50 | disposition home or self-care (01) | DRG 198 ==
LOC: JER 16:04 → JERBED 22:15
PROVIDERS: ADMIT Internal Medicine; ATTEND Internal Medicine
DX: I25.10 Atherosclerotic heart disease of native coronary artery without angina pectoris (principal); F10.10 Alcohol abuse, uncomplicated; E78.5 Hyperlipidemia, unspecified; I10 Essential (primary) hypertension; F41.8 Other specified anxiety disorders; I51.7 Cardiomegaly; I48.0 Paroxysmal atrial fibrillation; I42.9 Cardiomyopathy, unspecified; D70.9 Neutropenia, unspecified; I50.20 Unspecified systolic (congestive) heart failure; R07.89 Other chest pain; F14.20 Cocaine dependence, uncomplicated
CPT/HCPCS: 36415; 70450-TC; 71046-TC-FY; 72125-TC; 80053; 80061; 82550; 83721; 83880; 84484; 85025; 93005; 93010; 99285-25; J0131; J7030

== ENCOUNTER 2019-05-10 15:18 | Inpatient (IN) | payer OTHER ==
[2019-05-10] MEDS ORDERED: MENTHOL/PHENOL 1 EACH UD MM PRN (15:31)
[2019-05-10] MEDS ORDERED: guaiFENesin 200 MG/10 ML 10 ML UNIT-DOSE CUPS PO PRN (15:31)
[2019-05-10] MEDS ORDERED: MAG HYDROX/AL HYDROX/SIMETH 30 ML UNIT-DOSE CUP PO PRN (15:31)
[2019-05-10] MEDS ORDERED: MAGNESIUM CITRATE 300 ML BOTTLE PO PRN (15:31)
[2019-05-10] MEDS ORDERED: IBUPROFEN 400 MG TABLET (FP) PO PRN (15:31)
[2019-05-10] MEDS ORDERED: ACETAMINOPHEN 325 MG TABLET (FP) PO PRN (15:31)
[2019-05-10] MEDS ORDERED: LOPERAMIDE HCL 2 MG CAPSULE PO PRN (15:31)
[2019-05-10] MEDS ORDERED: MAGNESIUM HYDROX 2400MG/30ML ORAL SUSPENSION 30 ML CUP PO PRN (15:31)
[2019-05-10] MEDS ORDERED: P-EPHED 60MG/TRIPROLIDI 2.5MG TABLET PO PRN (15:31)
--- NOTE | 2019-05-10 15:39 | PN ---
[facility] Progress Note Note: PT RECEIVED SP ERRONEOUS REMOVAL FROM SYSTEM IN ED TRANSFER EVAL FOR CHEST PAIN, KNOWN CAD AND PPM SAYS SHE IS FEELING BETTER, DENIES CURRENT CHEST PAIN, SOB OR PAPL IN ED WAS PLACED ON TELEMETRY, GIVEN IV LASIX AND MANAGED FOR CHF EXACERBATION, NOTE RECENT PRIOR HOSP FOR CHF EXACERBATION UPON RETURN BP 125/87 P72 R 14 97.6 NAD AMBULATING CTAB RRR S1S2 AP COCAINE DEP, ETOH DEP REHAB EPISODE OF CP NO ACUTE FINDINGS IN ED RTC NOTE HYPOKALEMIA AM LABS FU LABS CONT TO MOTNITOR, CONSIDER INCREASED DIURESIS GIVEN KNOWN ONGOING CHF EXAC
[2019-05-10] MEDS ORDERED: PT OWN MED DRAWER 7, Y5N ONE (16:41)
[2019-05-10] MEDS: FLUoxetine HCL 20 MG CAPSULE (FP) PO SCH (16:59)
[2019-05-10] MEDS: FUROSEMIDE 20 MG TABLET (FP) PO SCH (16:59)
[2019-05-10] MEDS: RIVAROXABAN 20 MG TABLET PO SCH (19:50)
[2019-05-10] MEDS: ATORVASTATIN CA 40 MG TABLET (FP) PO SCH (21:58)
[2019-05-10] MEDS: traZODone HCL 100 MG TABLET (FP) PO SCH (21:59)
[2019-05-10] MEDS ORDERED: THIAMINE HCL 100 MG TABLET (FP) PO SCH (22:00)
[2019-05-10] MEDS: MELATONIN 5 MG TABLETS PO PRN (22:00)
[2019-05-11] MEDS ORDERED: PT OWN MED DRAWER 7, Y5N ONE ×2 (08:46→17:13)
[2019-05-11] MEDS: THIAMINE HCL 100 MG TABLET (FP) PO SCH (10:24)
[2019-05-11] MEDS: ASPIRIN 81 MG CHEWABLE TABLETS PO SCH (10:24)
[2019-05-11] MEDS: ARIPiprazole 15 MG TABLET PO SCH (10:24)
[2019-05-11] MEDS: PRENATAL VITAMINS W/ FOLIC ACID TABLET (FP) PO SCH (10:24)
[2019-05-11] MEDS: FLUoxetine HCL 20 MG CAPSULE (FP) PO SCH (10:24)
[2019-05-11] MEDS ORDERED: PNEUMOCOCCAL 23 VACCINE 0.5 ML VIAL IM ONE (12:00)
[2019-05-11] MEDS ORDERED: PNEUMOC 13-VAL CONJ-DIP CRM/PF 0.5 ML DISP.SYRIN IM ONE (12:00)
[2019-05-11 12:23] LABS: ALBUMIN 2.9 g/dl (3.4-5.0); BILIRUBIN,TOTAL 0.4 mg/dL (0.2-1); BLOOD UREA NITROGEN 19.4 mg/dL (7-18); CREATININE 1.2 mg/dL (0.55-1.3); TOT PROT 6.2 g/dl (6.4-8.2)
[2019-05-11] MEDS ORDERED: NICOTINE POLACRILEX 2 MG GUM BUC PRN (12:38)
[2019-05-11] MEDS: NICOTINE 14 MG/24 HOURS TOPICAL PATCH TD SCH (12:53)
[2019-05-11] MEDS: AMIODARONE HCL 200 MG TABLET (FP) PO SCH (12:53)
[2019-05-11] MEDS: FUROSEMIDE 20 MG TABLET (FP) PO SCH (12:54)
[2019-05-11] MEDS: ALBUTEROL SO4 8 GM HFA INHALER IH PRN ×2 (13:17→20:07)
[2019-05-11] MEDS: RIVAROXABAN 20 MG TABLET PO SCH (18:30)
[2019-05-11] MEDS: ATORVASTATIN CA 40 MG TABLET (FP) PO SCH (22:12)
[2019-05-11] MEDS: traZODone HCL 100 MG TABLET (FP) PO SCH (22:13)
[2019-05-11] MEDS: MELATONIN 5 MG TABLETS PO PRN (22:13)
[2019-05-12] MEDS ORDERED: PT OWN MED DRAWER 7, Y5N ONE ×3 (06:16→10:49)
[2019-05-12 07:24] VITALS: TEMP 97.1
[2019-05-12] MEDS: ALBUTEROL SO4 8 GM HFA INHALER IH PRN (10:16)
[2019-05-12] MEDS: FLUoxetine HCL 20 MG CAPSULE (FP) PO SCH (10:17)
[2019-05-12] MEDS: AMIODARONE HCL 200 MG TABLET (FP) PO SCH (10:17)
[2019-05-12] MEDS: PRENATAL VITAMINS W/ FOLIC ACID TABLET (FP) PO SCH (10:17)
[2019-05-12] MEDS: THIAMINE HCL 100 MG TABLET (FP) PO SCH (10:17)
[2019-05-12] MEDS: FUROSEMIDE 20 MG TABLET (FP) PO SCH (10:17)
[2019-05-12] MEDS: ASPIRIN 81 MG CHEWABLE TABLETS PO SCH (10:17)
[2019-05-12] MEDS: ARIPiprazole 15 MG TABLET PO SCH (10:18)
[2019-05-12] MEDS: NICOTINE 14 MG/24 HOURS TOPICAL PATCH TD SCH (10:19)
[2019-05-12 15:42] VITALS: BP 112/80; PULSE 71
--- NOTE | 2019-05-12 15:57 | PN ---
[facility] Progress Note (SOAP) Subjective: Patient c/o left sided chest pain radiating to left arm and back. Patient reports pain 9/10, SOB, but with sats of 100%. PMHx of chest pain this past weekend 05/10, requiring transport to ER. Prior to admission, the patient had a stent done at [facility] and a history of cardiac disease, CHF. Objective: PE: General: appears to be in pain; reports pain 9/10 Heart: S1 S2 audible, murmur heard Lungs: clear throughout ABD: soft , non-tender, +BS neuro;no neurological deficits EKG shows 1st degree block. Cannot rule out anteroseptal defect 05/12/19 15:57 VS 107/78, p=69, ziu=469 afebrile 05/12/19 16:11 Assessment: left sided chest pain 05/12/19 16:05 Plan: Patient given Mylanta, oxygen placed. EKG ordered, 3rd year resident consulted who advised transport to [facility] ER. Nitroglycerin ordered. Report given to Conor at [facility], [facility]
[2019-05-12] MEDS ORDERED: NITROGLYCERIN SUBLINGUAL 1/150 0.4 MG TAB SL PRN (16:18)
[2019-05-12] MEDS: RIVAROXABAN 20 MG TABLET PO SCH (17:22)
[2019-05-12] MEDS: traZODone HCL 100 MG TABLET (FP) PO SCH (21:45)
[2019-05-12] MEDS: ATORVASTATIN CA 40 MG TABLET (FP) PO SCH (21:45)
== END 2019-05-12 16:35 | disposition short-term general hospital (02) | DRG 772 ==
LOC: YASAS 15:18 → Y3E 15:26
PROVIDERS: ADMIT Neuromusculoskeletal Medicine & OMM; ATTEND Neuromusculoskeletal Medicine & OMM
PROC: HZ42ZZZ Group Counseling for Substance Abuse Treatment, Cognitive-Behavioral (ICD-10-PCS; principal; 2019-05-10)
DX: F10.20 Alcohol dependence, uncomplicated (principal); F14.20 Cocaine dependence, uncomplicated; E87.6 Hypokalemia; R07.9 Chest pain, unspecified; M25.512 Pain in left shoulder; I44.0 Atrioventricular block, first degree; M54.9 Dorsalgia, unspecified; R06.02 Shortness of breath; Z95.5 Presence of coronary angioplasty implant and graft; Z95.1 Presence of aortocoronary bypass graft
CPT/HCPCS: 36415; 80053; 82962

== ENCOUNTER 2019-05-12 16:56 | Observation (INO) | payer OTHER ==
[2019-05-12 17:31] VITALS: BMI 29.8
--- NOTE | 2019-05-12 17:56 | PDOC ---
*Physical Exam - Vital Signs Last Vital Signs Temp Pulse Resp BP Pulse Ox 97.6 F 66 18 100/72 100 05/12/19 17:25 05/12/19 17:25 05/12/19 17:25 05/12/19 17:25 05/12/19 17:25 Medical Decision Making - Medical Decision Making 05/12/19 18:25 Patient seen and evaluated as pre-attending w/Dr. Mosley (PGY-1) The patient is a 58 year old female with a PMH of AFib (s/p PPM, on Elquis for A /C), CHF (severe systolic L Ventricular dysfunction w/LVEF 20%), [place] (s/p stent on 04/30/15), Cocaine abuse, ETOH abuse, HTN, HLD, and BPD who presents to our ED from [facility] c/o acute onset of chest pain starting @ 3 p.m. today. Chest pain is "pressure, like someone is sitting on my chest" L sided and radiates down her L arm. Endorses associated shortness of breath, nausea and one episode of NBNB emesis. Will r/o ACS, also consider costochondritis, MSK, Gerd, Esophageal spasm. As per EMR, patient evaluated for similar symptoms two days previous. At that time medical staff contacted both [place] and [facility], both institutions did not have a record of patient being evaluated in 04/2019. Patient was evaluated by cardiology during that visit who recommended outpatient follow-up/evaluation with patient's cardiologists in [place]. Likely disposition is Troponin x2, with OBS Tele admission *DC/Admit/Observation/Transfer Diagnosis at time of Disposition: Chest pain - Referrals Referrals: Ibeth Tello MD [Primary Care Provider] - - Patient Instructions - Post Discharge Activity
[2019-05-12] MEDS ORDERED: ACETAMINOPHEN 1000 MG/100 ML VIAL (NON FORMULARY) IVPB ONE (18:12)
--- NOTE | 2019-05-12 18:15 | PDOC ---
History of Present Illness - General Chief Complaint: Chest Pain Stated Complaint: CHEST PAIN Time Seen by Provider: 05/12/19 17:44 - History of Present Illness Initial Comments: 05/12/19 18:40 Patient is a 58 yo F with a PMhx of Afib on xarelto with PM, CAD s/p cath x2, CHF, HTN, HLD, COPD on home oxygen, polysubstance abuse (crack and alcohol), depression, anxiety, bipolar schizoaffective, sent from [facility] where she was admitted for alcohol and crack rehab for chest pain since 1500 today. Pt was sitting in group at 1500 and suddenly felt pressure-like CP, L-sided radiating to L arm and lower back, constant, nothing makes better or worse, associated with SOB, still present now. Endorses dizziness, 1 episode of emesis on the way here, and months of a dry cough. Pt states it feels like her DE that she had on April 30, treated at [facility] by Dr Munoz. Of note, pt was recently discharged here on 05/10/19 for chest pain but pt states this is worse. Pt did not take any pain meds today but would like IV Tylenol because she said that worked last time. Denies F/C, abdominal pain, dysuria, blood in stool, D/C, numbness/tingling, weakness, recent travel, recent surgeries, hx clots. Past History - Past Medical History Allergies/Adverse Reactions: Allergies Allergy/AdvReac Type Severity Reaction Status Date / Time LARA Inhibitors Allergy Verified 05/12/19 17:12 enalaprilat dihydrate Allergy Verified 05/12/19 17:12 [From Vasotec] shellfish derived Allergy Verified 05/12/19 17:12 Home Medications: Ambulatory Orders Albuterol Sulfate Inhaler - [Ventolin HFA Inhaler -] 2 inh IH Q4H PRN 01/09/13 Aripiprazole [Abilify -] 30 mg PO DAILY 01/09/13 Salmeterol/Fluticasone [Advair 250Mcg/50Mcg -] 1 inh IH BID 01/09/13 Amiodarone HCl [Cordarone -] 200 mg PO DAILY 08/01/16 Aspirin [ASA -] 81 mg PO DAILY tab.chew 08/02/16 Furosemide [Lasix -] 20 mg PO DAILY 12/21/16 Losartan Potassium [Cozaar -] 25 mg PO DAILY 12/21/16 traZODone HCL [Desyrel -] 150 mg PO HS 12/21/16 Fluoxetine HCl 20 mg PO DAILY 05/08/19 Metformin HCl [Metformin HCl ER] 500 mg PO DAILY 05/08/19 Rivaroxaban [Xarelto -] 20 mg PO HS 05/08/19 Atorvastatin Ca [Lipitor] 40 mg PO HS #30 tablet 05/10/19 Thiamine HCl [Vitamin B1 -] 100 mg PO DAILY tablet 05/10/19 Anemia: No Asthma: Yes Cancer: No Cardiac Disorders: Yes CVA: No COPD: No CHF: Yes (ON MEDS) Dementia: No Diabetes: No GI Disorders: No Disorders: No HTN: Yes Hypercholesterolemia: Yes Kidney Stones: No Liver Disease: No Seizures: No Thyroid Disease: No - Surgical History Abdominal Surgery: No Appendectomy: No Cardiac Surgery: No Cholecystectomy: No Lung Surgery: No Neurologic Surgery: No Orthopedic Surgery: No - Reproductive History PID: No - Immunization History Immunization Up to Date: Yes - Suicide/Smoking/Psychosocial Hx Smoking History: Current every day smoker Have you smoked in the past 12 months: Yes Number of Cigarettes Smoked Daily: 20 If you are a former smoker, when did you quit?: 3 years Cigars Per Day: 0 Information on smoking cessation initiated: No 'Breaking Loose' booklet given: 05/08/19 Hx Alcohol Use: Yes Drug/Substance Use Hx: Yes Substance Use Type: Alcohol, Cocaine Hx Substance Use Treatment: Yes Review of Systems - Review of Systems Comments:: 05/12/19 18:52 Constitutional: Negative for chills, fever, fatigue. HENT: Positive for rhinorrhea, congestion. Negative for sore throat. Eyes: Negative for visual disturbance. Respiratory: Positive for shortness of breath and cough. Negative for wheezing. Cardiovascular: Positive for chest pain. Negative for palpitations, and leg swelling. Gastrointestinal: Positive for vomiting. Negative for abdominal pain, blood in stool, constipation, diarrhea Genitourinary: Negative for dysuria, flank pain, and hematuria. Musculoskeletal: Negative for myalgias, back pain, and neck pain. Skin: Negative for rash. Neurological: Positive for light-headedness. Negative for dizziness, syncope, weakness, numbness and headaches. Psychiatric/Behavioral: Negative for behavioral problems and confusion. *Physical Exam - Vital Signs Last Vital Signs Temp Pulse Resp BP Pulse Ox 97.6 F 66 18 100/72 100 05/12/19 17:25 05/12/19 17:25 05/12/19 17:25 05/12/19 17:25 05/12/19 17:25 - Physical Exam Comments: 05/12/19 18:53 Gen: Alert, NAD, comfortable-appearing. HEENT: PERRL, EOMI, MMM, NCAT. No conjunctival pallor. Sclera are non-icteric. Oropharynx is clear. CV: Regular rate and rhythm. No murmurs, rubs, or gallops. PULM: No resp distress. CTAB, no wheezes, rales, or rhonchi. ABD: soft, NT/ND, no rebound tenderness or guarding, no CVA tenderness. BACK: +soft lumps to back (pt states chronic lipomas). No TTP of c/t/l-spine. No step-offs or deformities. MSK: No bony deformities. 2+ pulses in all extremities. NEURO: AAOx3. PERRL. No gross CN deficits. Strength and sensation grossly intact throughout. EXTREMITIES: No cyanosis. No clubbing. No edema. No calf tenderness. PSYCH: Normal mood and thought pattern. SKIN: Warm and dry. Normal capillary refill. No rashes. No jaundice. Heart Score/ECG Review - ECG Impressions Comment:: 05/12/19 21:59 EKG 1724: sinus rhythm w/1st degree AV block, 67bpm, right superior axis deviation, QTc 496ms, no STEs, nonspecific T wave changes in V4/V5 compared to prior EKG on 05/10/19. EKG 2044: no significant changes from 1724 ED Treatment Course - LABORATORY CBC & Chemistry Diagram: 05/12/19 18:25 05/12/19 18:25 - RADIOLOGY Radiology Studies Ordered: Category Date Time Status CHEST PA & LAT [RAD] Stat Radiology 05/12/19 18:12 Ordered Medical Decision Making - Medical Decision Making 05/12/19 18:48 Patient is a 58 yo F with a PMhx of Afib on xarelto with PM, CAD s/p cath x2, CHF, HTN, HLD, COPD on home oxygen, polysubstance abuse (crack and alcohol), depression, anxiety, bipolar schizoaffective, sent from [facility] where she was admitted for alcohol and crack rehab for L-sided chest pain radiating to L arm and lower back since 1500 today, constant, similar to previous DE, associated with SOB and emesis x1. Of note, pt was recently discharged here on 05/10/19 for chest pain but pt states this is worse. Of note, pt states she had a stent placed at [facility] on 04/30/[address] Pimentel, they could not verify this with multiple phone calls. High concern for ACS/DE due to significant RFs, heart score moderate 5, CP worse than prior DE - labs, CXR, and admit tele obs. Also consider other cardiac etiology such as CHF or arrythmia or pulmonary etiology such as pneumonia or COPD exacerbation, although less likely due to clear lungs - assess with labs and CXR. Wells score of 0 and low concern for PE due to history and presentation - no further testing at this time. Low concern for dissection due to presentation and hemodynamic stability - assess with CXR, no further testing indicated at this time. -EKG -CBC, CMP, Cardiac profile, Coags, BNP -CXR -IV Tylenol for pain -Dispo: most likely tele obs admit Labs reviewed. Of note, trop 0.02, BNP 720 (492 on 05/09/19) EKG 1724: sinus rhythm w/1st degree AV block, 67bpm, right superior axis deviation, QTc 496ms, no STEs, nonspecific T wave changes in V4/V5 compared to prior EKG on 05/10/19. EKG 2044: no significant changes from 1724 05/12/19 20:50 Signed out to admitting team tele obs. 05/12/19 21:51 Monitor says "vtach" but rhythm appears normal. Will obtain EKG and change monitor. Pt states she feels the same, just c/o her same CP, no changes. 05/13/19 11:23 Monitor battery replaced and no longer says "vtach", normal rhythm present. CXR reviewed. No concerning findings or significant changes from prior. *DC/Admit/Observation/Transfer Diagnosis at time of Disposition: Chest pain - Discharge Dispostion Condition at time of disposition: Stable Decision to Admit order: Yes - Referrals - Patient Instructions - Post Discharge Activity
[2019-05-12] MEDS ORDERED: ACETAMINOPHEN INJECTION 100 ML IVPB ONE (18:52)
[2019-05-12 19:16] LABS: EOS % 0.8 % (0-4.5); HEMATOCRIT 31.8 % (32.4-45.2); HEMOGLOBIN 10.1 GM/dL (10.7-15.3); LYMPH % 52.9 % (8-40); MCH 29.5 pg (25.7-33.7); MEAN CELL VOLUME 92.2 fl (80-96); MEAN PLT VOLUME 9.8 fl (7.5-11.1); MONO % 10.4 % (3.8-10.2); NEUT % 34.9 % (42.8-82.8); PLATELET COUNT 182 K/MM3 (134-434); RBC 3.45 M/mm3 (3.60-5.2); RDW 15.5 % (11.6-15.6); WHITE BLOOD COUNT 3.3 K/mm3 (4.0-10.0)
[2019-05-12 19:29] LABS: INR 1.35 (0.83-1.09)
[2019-05-12 19:32] LABS: ACTIVATED PTT 39.4 SECONDS (25.2-36.5)
[2019-05-12 19:46] LABS: ALBUMIN 3.1 g/dl (3.4-5.0); BILIRUBIN,TOTAL 0.3 mg/dL (0.2-1); BLOOD UREA NITROGEN 16.2 mg/dL (7-18); CALCIUM 9.6 mg/dL (8.5-10.1); CREATININE 1.1 mg/dL (0.55-1.3); N-TERMINAL BNP 720.7 pg/ml (5-125); POTASSIUM 4.3 mmol/L (3.5-5.1); TOT PROT 6.4 g/dl (6.4-8.2)
--- NOTE | 2019-05-12 21:19 | HP ---
CHIEF COMPLAINT: chest pain and shortness of breath PCP: Dr. Ibeth Tello HISTORY OF PRESENT ILLNESS: Mervat Porter is a 58 year old female with a past medical history of atrial fibrillation (s/p PPM on Xarelto), CHF (severe systolic L ventricular dysfunction w/ LVEF 20%, class 1-2 NYHA LV failure), IN (s/p stent in 2014), dilated cardiomyopathy, pacemaker placed for runs of vfib, COPD (on home O2 3L) , HTN, HLD, BPD, crack abuse, EtOH abuse who presented to the ED from [facility] where she developed chest pain and shortness of breath while she was in a group session. She stated that the pain was a 9/10 that radiated to the left arm and nothing made the pain better or worse. Pain was described as a pressure like sensation. Recently was at this institution with similar symptoms, but states that this episode is worse than the one 2 days ago. She also endorsed shortness of breath, nausea, one episode of NBNB while in the ambulance, headache, lightheadedness, dry cough, rhinnorhea. Patient states that she has dyspnea with exertion and orthopnea. Denies fever, chills, dysphagia, dysarthria, visual changes, auditory changes, abdominal pain, urinary frequency, urgency, hesitancy, peripheral edema, numbness, tingling. ER course was notable for: (1) EKG showing sinus rhythm with 1st degree block, R axis deviation, inverted T waves in V5, V6, non-specific intraventricular block unchanged from previous EKG (2) negative troponins, BNP 720, WBC 3.3 (neut 34.9, lymp 52.9) PAST MEDICAL HISTORY: as above PAST SURGICAL HISTORY: PCI with stent placement in 2014 Social History: Smoking: current smoker 1ppd Alcohol: alcohol abuse, last drink 04/30 Drugs: crack cocaine abuse, last use 04/30 Family History: Mother- IN Allergies LARA Inhibitors Allergy (Verified 05/12/19 17:12) --> swelling of the face enalaprilat dihydrate [From Vasotec] Allergy (Verified 05/12/19 17:12) shellfish derived Allergy (Verified 05/12/19 17:12) HOME MEDICATIONS: Home Medications Medication Instructions Recorded Albuterol Sulfate Inhaler - 2 inh IH Q4H PRN 01/09/13 [Ventolin HFA Inhaler -] Aripiprazole [Abilify -] 30 mg PO DAILY 01/09/13 Salmeterol/Fluticasone [Advair 1 inh IH BID 01/09/13 250Mcg/50Mcg -] Amiodarone HCl [Cordarone -] 200 mg PO DAILY 08/01/16 Aspirin [ASA -] 81 mg PO DAILY tab.chew 08/02/16 Furosemide [Lasix -] 20 mg PO DAILY 12/21/16 Losartan Potassium [Cozaar -] 25 mg PO DAILY 12/21/16 traZODone HCL [Desyrel -] 150 mg PO HS 12/21/16 Fluoxetine HCl 20 mg PO DAILY 05/08/19 Metformin HCl [Metformin HCl ER] 500 mg PO DAILY 05/08/19 Rivaroxaban [Xarelto -] 20 mg PO HS 05/08/19 Atorvastatin Ca [Lipitor] 40 mg PO HS #30 tablet 05/10/19 Thiamine HCl [Vitamin B1 -] 100 mg PO DAILY tablet 05/10/19 REVIEW OF SYSTEMS CONSTITUTIONAL: Absent: fever, chills, diaphoresis, generalized weakness, malaise, loss of appetite, weight change HEENT: rhinorrhea Absent: nasal congestion, throat pain, throat swelling, difficulty swallowing, mouth swelling, visual changes CARDIOVASCULAR: chest pain, lightheadedness Absent: syncope, palpitations, irregular heart rate, peripheral edema RESPIRATORY: cough, shortness of breath, dyspnea with exertion, orthopnea Absent: wheezing, stridor, GASTROINTESTINAL: nausea, vomiting Absent: abdominal pain, abdominal distension, diarrhea, constipation, GENITOURINARY: Absent: dysuria, frequency, urgency, hesitancy, hematuria, flank pain, MUSCULOSKELETAL: Absent: myalgia, arthralgia, joint swelling, back pain, neck pain SKIN: Absent: rash, itching, pallor ENDOCRINE: Absent: unexplained weight gain, unexplained weight loss, NEUROLOGIC: headache Absent: focal weakness or paresthesias, dizziness, unsteady gait, seizure, mental status changes, bladder or bowel incontinence PSYCHIATRIC: Absent: anxiety, depression, suicidal or homicidal ideation, hallucinations. PHYSICAL EXAMINATION Vital Signs - 24 hr 05/12/19 17:25 Temperature 97.6 F Pulse Rate 66 Respiratory 18 Rate Blood Pressure 100/72 O2 Sat by Pulse 100 Oximetry (%) GENERAL: Awake, alert, and fully oriented, in no acute distress. HEAD: Normal with no signs of trauma. EYES: Pupils equal, round and reactive to light, extraocular movements intact, conjunctiva clear. NECK: Normal range of motion, supple without lymphadenopathy, JVD. LUNGS: Breath sounds equal, clear to auscultation bilaterally. No wheezes, and no crackles. No accessory muscle use. on NC 3L HEART: Regular rate and rhythm, normal S1 and S2 with audible 3/6 systolic murmur. No reproducible chest pain. ABDOMEN: Soft, nontender, not distended, normoactive bowel sounds, no guarding, no rebound, no masses. MUSCULOSKELETAL: Normal range of motion at all joints. No bony deformities or tenderness. Noted lipomas on back (chronic) UPPER EXTREMITIES: 2+ pulses, warm, well-perfused. No cyanosis. No clubbing. No peripheral edema. LOWER EXTREMITIES: 1+ pulses, warm, well-perfused. No calf tenderness. No peripheral edema. NEUROLOGICAL: Cranial nerves II-XII intact. Normal speech. Muscle strength 5/5 bilaterally upper and lower extremities. PSYCHIATRIC: Cooperative. Good eye contact. Appropriate mood and affect. SKIN: Warm, dry, normal turgor, no rashes or lesions noted, normal capillary refill. Laboratory Results - last 24 hr 05/12/19 05/12/19 05/12/19 18:25 18:25 18:25 WBC 3.3 L RBC 3.45 L Hgb 10.1 L Hct 31.8 L MCV 92.2 MCH 29.5 MCHC 32.0 RDW 15.5 Plt Count 182 MPV 9.8 Absolute Neuts (auto) 1.1 L Neutrophils % 34.9 L Lymphocytes % 52.9 H Monocytes % 10.4 H Eosinophils % 0.8 Basophils % 1.0 Nucleated RBC % 0 PT with INR 16.00 H INR 1.35 H PTT (Actin FS) 39.4 H Sodium 143 Potassium 4.3 Chloride 106 Carbon Dioxide 32 Anion Gap 5 L BUN 16.2 Creatinine 1.1 Est GFR (CKD-EPI)AfAm 65.00 Est GFR (CKD-EPI)NonAf 56.08 Random Glucose 90 Calcium 9.6 Total Bilirubin 0.3 AST 23 ALT 21 Alkaline Phosphatase 54 Creatine Kinase 111 Troponin I 0.02 B-Natriuretic Peptide 720.7 H Total Protein 6.4 Albumin 3.1 L EKG --> sinus rhythm with 1st degree block, R axis deviation, inverted T waves in V5, V6, non-specific intraventricular block unchanged from previous EKG ? LBBB, evident on previous EKG QTc 489 ASSESSMENT/PLAN: Mervat Porter is a 58 year old female with a past medical history of atrial fibrillation (s/p PPM on Xarelto), CHF (severe systolic L ventricular dysfunction w/ LVEF 20%, class 1-2 NYHA LV failure), IN (s/p stent in 2014), dilate cardiomyopathy, COPD (on home O2 3L), HTN, HLD, BPD, crack abuse, EtOH abuse admitted for unstable angina and rule ACS in the setting of severe cardiac history and multiple comorbidities. Unstable Angina CHF Atrial fibrillation COPD HTN HLD BPD Crack Abuse EtOH abuse Unstable Angina - likely in the setting of multiple cardiac history as well as multiple medical comorbidities and drug use, will r/o of ACS - 2 negative sets of troponins - CXR with no clear acute pathology - repeat EKG in morning - telemetry monitoring - imdur 30mg daily - reassess imdur requirements in the morning, may require Ranexa, if start Ranexa then careful due to prolonged QTc at 489, patient also on Prozac. Other Qtc prolonging medication trazadone has been held - aspirin 81mg daily - on metformin 500mg, stated is for heart problems, denies DM, obtain A1c in morning - 0 points on Sgarbossa criteria, unlikely IN CHF - continue Lasix 20mg - CXR with no clear acute pathology or infiltrates - BNP elevated 720, highest according to this institutions records - no current peripheral edema, overload symptoms, continue to monitor patient for signs of overt decompensation - cardiac telemetry monitoring - as per last cardiology note, can consider spironolactone - echo ordered - 2L fluid restriction Afib - CHADS-VASc 3, already on Xarelto 20mg daily, continue - amiodarone 200mg daily - in sinus rhythm with 1st degree AV block COPD - on 3L NC, continue - CPAP at night, likely REJI, will need outpatient sleep study - Symbicort 2 puffs bid - albuterol 2 puff q4h prn HTN - on Cozaar 25mg HLD - Lipitor 40mg daily BPD - continue home Abilify 30mg daily - continue Prozac 20mg daily - hold trazodone in light of prolonged QTc - Prozac continued to prevent discontinuation syndrome Crack Abuse - last use 04/30 - in rehab - no current withdrawal symptoms - advised to continue sobriety and continue rehab efforts Alcohol Abuse - last use 04/30 - in rehab - no current withdrawal symptoms - advised to continue sobriety and continue rehab efforts - thiamine supplementation FEN - no standing fluids - continue to monitor electrolytes and replete as necessary - sodium controlled diet, fluid restriction 2L Prophylaxis - on Xarelto Code - full code CALI SANCHEZ DO - PGY-1 Visit type - Emergency Visit Emergency Visit: Yes ED Registration Date: 05/12/19 Care time: The patient presented to the Emergency Department on the above date and was hospitalized for further evaluation of their emergent condition. - New Patient This patient is new to me today: Yes Date on this admission: 05/13/19 - Critical Care Critical Care patient: No
--- NOTE | 2019-05-12 21:22 | PN ---
Teaching Attending Note Name of Resident: Satinder Trammell ATTENDING PHYSICIAN STATEMENT I saw and evaluated the patient. I reviewed the resident's note and discussed the case with the resident. I agree with the resident's findings and plan as documented. Seen and examined; please refer to resident note for further historical information. Briefly, this is a 58 y/o female presenting to the ER with repeated chest pain recently discharged after seeing her validation manager. She has a complex cardiac history and has been admitted to multiple facilities with different identifiers on records. She complains of chest pain at rest beginning when she was in group and LINDQUIST associated with orthopnea. She has not used CPAP since she has been at [facility]. She is on 3L O2 ATC, she informs me. Denies recent drug use. VS, labs, imaging reviewed NAD, AAO, resting in bed NC AT EOMI PERRLA RRR s1/2, mild JVD appreciated NT ND +BS CN2-12 wnl, no fnd Normal mood, appropriate behavior. Restricted insight to the severity of her condition. EKG and repeat reviewed with ER; no ST elevation. CXR was not preformed but ordered; we will ensure order is carried out and review ASSESSMENT AND PLAN: Patient with history of NYHA HFrEF 2/2 NICM, VF s/p AICD on amio, and CAD s/p PCI presents with recurring CP. Last admission CV states that if recurring CP can start on Imdur now and consider adding ranexa in AM. CP improved when I saw her. She should also be considered for entresto. Some worsening SOB; checking BNP and can check echocardiogram # Chest Pain at rest, suspect unstable angina; startin ranexa and imdur. Monitor on tele, trend trops, ekg. Consider CV consult. # CAD s/p remote PCI # VF s/p AICD, on amio # P-AF w/ elevated CV2 score on NOAC/amio, continue # Schizoaffective disorder # Polysubstance abuse, back to detox at [facility] # REJI on CPAP, will continue # Hx HTN # Hx HLD # Obesity Full Code
[2019-05-12] MEDS ORDERED: ALBUTEROL SO4 8 GM HFA INHALER IH PRN (21:32)
[2019-05-12] MEDS ORDERED: ISOSORBIDE MONONITRATE 60 MG TAB.SR.24H (FP) PO ONE (21:37)
[2019-05-12] MEDS: ISOSORBIDE MONONITRATE 30 MG TAB.SR.24H (FP) PO SCH (21:42)
[2019-05-12] MEDS ORDERED: ASPIRIN 81 MG CHEWABLE TABLETS PO ONE (21:43)
[2019-05-12] MEDS ORDERED: ATORVASTATIN CA 40 MG TABLET (FP) PO SCH (22:00)
[2019-05-12] MEDS ORDERED: traZODone HCL 100 MG TABLET (FP) PO SCH (22:00)
[2019-05-12] MEDS ORDERED: ATORVASTATIN CA 40 MG TABLET (FP) ONE (22:58)
[2019-05-12] MEDS ORDERED: ASPIRIN 81 MG CHEWABLE TABLETS ONE (22:58)
[2019-05-12] MEDS ORDERED: metFORMIN HCL 500 MG TABLET (FP) ONE (22:58)
[2019-05-13] MEDS: BUDESONIDE/FORMETEROL FUMARATE 80/4.5 mcg INHALER IH SCH ×2 (00:23→09:56)
[2019-05-13 06:46] LABS: BASO % 0.8 % (0-2.0); EOS % 0.8 % (0-4.5); HEMOGLOBIN 9.8 GM/dL (10.7-15.3); LYMPH % 60.6 % (8-40); MCHC 32.7 g/dl (32.0-36.0); MEAN CELL VOLUME 91.6 fl (80-96); MEAN PLT VOLUME 9.6 fl (7.5-11.1); MONO % 10.2 % (3.8-10.2); NEUT % 27.6 % (42.8-82.8); PLATELET COUNT 179 K/MM3 (134-434); RBC 3.28 M/mm3 (3.60-5.2); RDW 15.8 % (11.6-15.6); WHITE BLOOD COUNT 2.7 K/mm3 (4.0-10.0)
[2019-05-13 07:11] LABS: BLOOD UREA NITROGEN 15.5 mg/dL (7-18); CALCIUM 9.2 mg/dL (8.5-10.1); POTASSIUM 4.6 mmol/L (3.5-5.1)
[2019-05-13] MEDS ORDERED: PT OWN MED DRAWER 7, Y5N ONE (08:34)
[2019-05-13] MEDS: ISOSORBIDE MONONITRATE 30 MG TAB.SR.24H (FP) PO SCH (09:56)
[2019-05-13] MEDS ORDERED: ASPIRIN 81 MG CHEWABLE TABLETS PO SCH (10:00)
[2019-05-13] MEDS ORDERED: AMIODARONE HCL 200 MG TABLET (FP) PO SCH (10:00)
[2019-05-13] MEDS ORDERED: ARIPiprazole 15 MG TABLET PO SCH (10:00)
[2019-05-13] MEDS ORDERED: FLUoxetine HCL 20 MG CAPSULE (FP) PO SCH (10:00)
[2019-05-13] MEDS ORDERED: LOSARTAN POTASSIUM 25 MG TABLET PO SCH (10:00)
[2019-05-13] MEDS ORDERED: FUROSEMIDE 20 MG TABLET (FP) PO SCH (10:00)
[2019-05-13] MEDS ORDERED: THIAMINE HCL 100 MG TABLET (FP) PO SCH (10:00)
[2019-05-13 10:22] LABS: ANISOCYTOSIS 1+; MACROCYTOSIS 0; PLATELET ESTIMATE NORMAL; TEAR DROP CELLS 1+
--- NOTE | 2019-05-13 10:42 | EKG ---
Test Reason : Blood Pressure : / mmHG Vent. Rate : 068 BPM Atrial Rate : 068 BPM P-R Int : 214 ms QRS Dur : 138 ms QT Int : 462 ms P-R-T Axes : 024 202 058 degrees QTc Int : 491 ms POOR DATA QUALITY, INTERPRETATION MAY BE ADVERSELY AFFECTED SINUS RHYTHM WITH 1ST DEGREE A-V BLOCK POSSIBLE LEFT ATRIAL ENLARGEMENT RIGHT SUPERIOR AXIS DEVIATION NON-SPECIFIC INTRA-VENTRICULAR CONDUCTION BLOCK CANNOT RULE OUT SEPTAL INFARCT (CITED ON OR BEFORE 12-MAY-2019) ABNORMAL ECG WHEN COMPARED WITH ECG OF 12-MAY-2019 20:44, SERIAL CHANGES OF SEPTAL INFARCT PRESENT Confirmed by ANT CORTEZ, MAME ([id number]) on 05/13/2019 10:42:01 AM Referred By: Confirmed By:MAME CAIN MD
--- NOTE | 2019-05-13 10:43 | EKG ---
Test Reason : Blood Pressure : / mmHG Vent. Rate : 068 BPM Atrial Rate : 068 BPM P-R Int : 216 ms QRS Dur : 134 ms QT Int : 460 ms P-R-T Axes : 000 269 111 degrees QTc Int : 489 ms SINUS RHYTHM WITH 1ST DEGREE A-V BLOCK RIGHT SUPERIOR AXIS DEVIATION NON-SPECIFIC INTRA-VENTRICULAR CONDUCTION BLOCK CANNOT RULE OUT SEPTAL INFARCT (CITED ON OR BEFORE 12-MAY-2019) T WAVE ABNORMALITY, CONSIDER LATERAL ISCHEMIA ABNORMAL ECG WHEN COMPARED WITH ECG OF 12-MAY-2019 17:24, NO SIGNIFICANT CHANGE WAS FOUND Confirmed by MAME CAIN MD ([id number]) on 05/13/2019 10:42:48 AM Referred By: Confirmed By:MAME CAIN MD
--- NOTE | 2019-05-13 10:51 | EKG ---
Test Reason : Blood Pressure : / mmHG Vent. Rate : 067 BPM Atrial Rate : 067 BPM P-R Int : 224 ms QRS Dur : 140 ms QT Int : 470 ms P-R-T Axes : 018 228 067 degrees QTc Int : 496 ms SINUS RHYTHM WITH 1ST DEGREE A-V BLOCK POSSIBLE LEFT ATRIAL ENLARGEMENT RIGHT SUPERIOR AXIS DEVIATION NON-SPECIFIC INTRA-VENTRICULAR CONDUCTION BLOCK CANNOT RULE OUT SEPTAL INFARCT (CITED ON OR BEFORE 12-MAY-2019) ABNORMAL ECG WHEN COMPARED WITH ECG OF 10-MAY-2019 09:19, AL INTERVAL HAS INCREASED Confirmed by ANT CORTEZ, MAME ([id number]) on 05/13/2019 10:51:37 AM Referred By: Confirmed By:MAME CAIN MD
--- NOTE | 2019-05-13 11:50 | ECHO ---
Name: ASAF FLOYD Exam:Adult Echocardiogram Study Date: 05/13/2019 07:48 AM Age: 58 yrs Reason For Study: Atypical Chest Pain Height: 66 in Weight: 185 lb BSA: 1.9 m2 MMode/2D Measurements & Calculations IVSd: 1.0 cm ACS: 2.0 cm LVIDd: 6.8 cm LVIDs: 5.6 cm LVPWd: 1.7 cm LVPWs: 1.7 cm EDV(Teich): 241.8 ml ESV(Teich): 152.3 ml LVOT diam: 1.9 cm RV S Nicolas: 12.2 cm/sec Doppler Measurements & Calculations Ao V2 max: 91.5 cm/sec TR max nicolas: 262.0 cm/sec Ao max P.4 mmHg TR max P.5 mmHg Ao V2 mean: 63.8 cm/sec Ao mean P.9 mmHg Ao V2 VTI: 19.6 cm Med Peak E' Nicolas: 6.1 cm/sec Lat Peak E' Nicolas: 4.5 cm/sec Procedure A two-dimensional transthoracic echocardiogram with color flow and Doppler was performed. The study w as technically difficult with many images being suboptimal in quality. Left Ventricle The left ventricle is moderately dilated. Left ventricular systolic function is moderate to severely reduced. There is moderate to severe global hypokinesis of the left ventricle. Right Ventricle The right ventricle is not well visualized. There is a pacemaker lead in the right ventricle. Atria The left atrium is not well visualized. Right atrium not well visualized. Mitral Valve There is mild mitral valve thickening. cannot r/o mitral stenosis. There is mild to moderate mitral regurgitation. The mitral regurgitant jet is eccentrically directed. Tricuspid Valve The tricuspid valve is not well visualized. There is no tricuspid stenosis. There is moderate to cortney re tricuspid regurgitation. Right ventricular systolic pressure is elevated at 30-40mmHg. Aortic Valve The aortic valve is not well visualized. No hemodynamically significant valvular aortic stenosis. Mil d aortic regurgitation. Pulmonic Valve The pulmonic valve is not well visualized. There is no pulmonic valvular stenosis. Mild to moderate p ulmonic valvular regurgitation. Great Vessels The aortic root is not well visualized. Pericardium/Pleura There is no pericardial effusion. Interpretation Summary Clinical correlation is recommended. The left ventricle is moderately dilated. Left ventricular systolic function is moderate to severely reduced. There is moderate to severe global hypokinesis of the left ventricle. There is a pacemaker lead in the right ventricle. The left atrium is not well visualized. Right atrium not well visualized. There is moderate to severe tricuspid regurgitation. Right ventricular systolic pressure is elevated at 30-40mmHg. The study was technically difficult with many images being suboptimal in quality. Mild aortic regurgitation. There is mild to moderate mitral regurgitation. The mitral regurgitant jet is eccentrically directed. cannot r/o mitral stenosis Clinical correlation is recommended. MD Alex Cabezas 05/13/2019 11:49 AM
[2019-05-13 12:01] VITALS: BP 99/69; PULSE 63; TEMP 97.8
--- NOTE | 2019-05-13 12:14 | EKG ---
Test Reason : Blood Pressure : / mmHG Vent. Rate : 060 BPM Atrial Rate : 060 BPM P-R Int : 236 ms QRS Dur : 138 ms QT Int : 482 ms P-R-T Axes : 065 226 087 degrees QTc Int : 482 ms Atrial-paced rhythm with prolonged AV conduction RIGHT SUPERIOR AXIS DEVIATION NON-SPECIFIC INTRA-VENTRICULAR CONDUCTION BLOCK CANNOT RULE OUT SEPTAL INFARCT (CITED ON OR BEFORE 12-MAY-2019) ABNORMAL ECG WHEN COMPARED WITH ECG OF 12-MAY-2019 21:57, ELECTRONIC ATRIAL PACEMAKER HAS REPLACED SINUS RHYTHM Confirmed by ANT CORTEZ, MAME ([id number]) on 05/13/2019 12:13:55 PM Referred By: Chaim ALEMAN Confirmed By:MAME CAIN MD
--- NOTE | 2019-05-13 17:57 | PN ---
Teaching Attending Note Name of Resident: Andree Stark ATTENDING PHYSICIAN STATEMENT I saw and evaluated the patient. I reviewed the resident's note and discussed the case with the resident. I agree with the resident's findings and plan as documented. SUBJECTIVE: Patient has no new complains, lying in bed with no acute distress. OBJECTIVE: Vital Signs Temperature 97.8 F 05/13/19 12:00 Pulse Rate 63 05/13/19 12:00 Respiratory Rate 16 05/13/19 12:00 Blood Pressure 99/69 05/13/19 12:00 O2 Sat by Pulse Oximetry (%) 98 05/13/19 12:00 GENERAL: The patient is awake, but wants to sleep, oriented, in no acute distress. HEAD: Normal with no signs of trauma. EYES: PERRL, extraocular movements intact, sclera anicteric, conjunctiva clear. ENT: Ears normal, oropharynx clear without exudates, moist mucous membranes. NECK: Trachea midline, full range of motion, supple. LUNGS: Breath sounds equal, clear to auscultation bilaterally, no wheezes, no crackles, no accessory muscle use. HEART: Regular rate and rhythm, S1, S2 without murmur, rub or gallop. ABDOMEN: Soft, nontender, nondistended, normoactive bowel sounds, no guarding, no rebound, no hepatosplenomegaly, no masses. EXTREMITIES: 2+ pulses, warm, well-perfused, no edema. NEUROLOGICAL: Cranial nerves II through XII grossly intact. Normal speech, gait not observed. PSYCH: Normal mood, normal affect. SKIN: Warm, dry, normal turgor, no rashes or lesions noted CBCD WBC 2.7 K/mm3 (4.0-10.0) L 05/13/19 06:24 RBC 3.28 M/mm3 (3.60-5.2) L 05/13/19 06:24 Hgb 9.8 GM/dL (10.7-15.3) L 05/13/19 06:24 Hct 30.0 % (32.4-45.2) L 05/13/19 06:24 MCV 91.6 fl (80-96) 05/13/19 06:24 MCHC 32.7 g/dl (32.0-36.0) 05/13/19 06:24 RDW 15.8 % (11.6-15.6) H 05/13/19 06:24 Plt Count 179 K/MM3 (134-434) 05/13/19 06:24 MPV 9.6 fl (7.5-11.1) 05/13/19 06:24 CMP Sodium 139 mmol/L (136-145) 05/13/19 06:24 Potassium 4.6 mmol/L (3.5-5.1) 05/13/19 06:24 Chloride 105 mmol/L (98-107) 05/13/19 06:24 Carbon Dioxide 29 mmol/L (21-32) 05/13/19 06:24 Anion Gap 5 MMOL/L (8-16) L 05/13/19 06:24 BUN 15.5 mg/dL (7-18) 05/13/19 06:24 Creatinine 1.0 mg/dL (0.55-1.3) 05/13/19 06:24 Random Glucose 80 mg/dL (74-106) 05/13/19 06:24 Calcium 9.2 mg/dL (8.5-10.1) 05/13/19 06:24 Total Bilirubin 0.3 mg/dL (0.2-1) 05/12/19 18:25 AST 23 U/L (15-37) 05/12/19 18:25 ALT 21 U/L (13-61) 05/12/19 18:25 Alkaline Phosphatase 54 U/L (45-117) 05/12/19 18:25 Total Protein 6.4 g/dl (6.4-8.2) 05/12/19 18:25 Albumin 3.1 g/dl (3.4-5.0) L 05/12/19 18:25 CARDIAC ENZYMES Creatine Kinase 111 U/L (26-192) 05/12/19 18:25 Troponin I < 0.02 ng/ml (0.00-0.05) 05/13/19 06:24 Home Medications Medication Instructions Recorded Albuterol Sulfate Inhaler - 2 inh IH Q4H PRN 01/09/13 [Ventolin HFA Inhaler -] Aripiprazole [Abilify -] 30 mg PO DAILY 01/09/13 Salmeterol/Fluticasone [Advair 1 inh IH BID 01/09/13 250Mcg/50Mcg -] Amiodarone HCl [Cordarone -] 200 mg PO DAILY 08/01/16 Aspirin [ASA -] 81 mg PO DAILY tab.chew 08/02/16 Furosemide [Lasix -] 20 mg PO DAILY 12/21/16 Losartan Potassium [Cozaar -] 25 mg PO DAILY 12/21/16 traZODone HCL [Desyrel -] 150 mg PO HS 12/21/16 Fluoxetine HCl 20 mg PO DAILY 05/08/19 Metformin HCl [Metformin HCl ER] 500 mg PO DAILY 05/08/19 Rivaroxaban [Xarelto -] 20 mg PO HS 05/08/19 Atorvastatin Ca [Lipitor] 40 mg PO HS #30 tablet 05/10/19 Thiamine HCl [Vitamin B1 -] 100 mg PO DAILY tablet 05/10/19 Budesonide/Formeterol Fumarate 1 inh PO BID 05/13/19 [SYMBICORT 80/4.5mcg -] Laboratory Tests 12/30/16 12/30/16 12/30/16 11:57 12:50 18:10 WBC INR Troponin I < 0.02 < 0.02 Digoxin Opiates Screen Negative Cocaine Screen Positive 12/31/16 12/31/16 05/12/19 00:35 05:00 18:25 WBC INR 1.35 H Troponin I < 0.02 Digoxin 0.2322 L Opiates Screen Cocaine Screen 05/12/19 05/12/19 05/13/19 18:25 18:25 04:00 WBC 3.3 L INR Troponin I 0.02 < 0.02 Digoxin Opiates Screen Cocaine Screen 05/13/19 05/13/19 06:24 06:24 WBC 2.7 L INR Troponin I < 0.02 Digoxin Opiates Screen Cocaine Screen EKG: no ST elevation. CXR: large heart, right pacemaker. ASSESSMENT AND PLAN: Patient is a 58yo female presented with chest pain and was in the emergency room on 05/11 and was cleared by cardio with PMhx of VF s/p AICD on amio, and CAD s/p PCI presents with recurring CP. # Acute Chest Pain , acs is rulled out with 3 sets of troponin is negative. patient was seen by phlebotomist prn on 05/11 and was cleaered for discharge. # CAD s/p remote PCI # VF s/p AICD, on amio # P-AF w/ elevated CV2 score on NOAC/amio, continue # Schizoaffective disorder # Polysubstance abuse # REJI on CPAP, will continue # Hx HTN # Hx HLD patient is being discharged back to detox center. was accepted by the center.
[2019-05-13] MEDS ORDERED: RIVAROXABAN 20 MG TABLET PO SCH (18:00)
--- NOTE | 2019-05-13 18:42 | DS ---
Physical Exam: SUBJECTIVE: Patient seen and examined at the bedside, she was comfortably asleep but awoke to be examined. Patient still endorsing chest pain, however appears comfortable in no acute distress. OBJECTIVE: Vital Signs Period Temp Pulse Resp BP Sys/Powell Pulse Ox Last 24 Hr 97.5 F-98.6 F 60-67 16-17 93-106/50-70 98-100 PHYSICAL EXAM GENERAL: Asleep but able to be woken up, alert, and fully oriented, in no acute distress. HEAD: Normal with no signs of trauma. EYES: Pupils equal, round and reactive to light, extraocular movements intact, conjunctiva clear. NECK: Normal range of motion, supple without lymphadenopathy, JVD. LUNGS: Breath sounds equal, clear to auscultation bilaterally. No wheezes, and no crackles. No accessory muscle use. on NC 3L HEART: Regular rate and rhythm, normal S1 and S2 with audible 3/6 systolic murmur. No reproducible chest pain. ABDOMEN: Soft, nontender, not distended, normoactive bowel sounds, no guarding, no rebound, no masses. MUSCULOSKELETAL: Normal range of motion at all joints. No bony deformities or tenderness. Noted lipomas on back (chronic) UPPER EXTREMITIES: 2+ pulses, warm, well-perfused. No cyanosis. No clubbing. No peripheral edema. LOWER EXTREMITIES: 1+ pulses, warm, well-perfused. No calf tenderness. No peripheral edema. NEUROLOGICAL: Cranial nerves II-XII intact. Normal speech. Muscle strength 5/5 bilaterally upper and lower extremities. PSYCHIATRIC: Cooperative. Good eye contact. Appropriate mood and affect. SKIN: Warm, dry, normal turgor, no rashes or lesions noted, normal capillary refill. LABS Laboratory Results - last 24 hr 05/12/19 05/12/19 05/12/19 18:25 18:25 18:25 WBC 3.3 L RBC 3.45 L Hgb 10.1 L Hct 31.8 L MCV 92.2 MCH 29.5 MCHC 32.0 RDW 15.5 Plt Count 182 MPV 9.8 Absolute Neuts (auto) 1.1 L Neutrophils % 34.9 L Neutrophils % (Manual) Band Neutrophils % Lymphocytes % 52.9 H Lymphocytes % (Manual) Monocytes % 10.4 H Monocytes % (Manual) Eosinophils % 0.8 Eosinophils % (Manual) Basophils % 1.0 Basophils % (Manual) Myelocytes % (Man) Promyelocytes % (Man) Blast Cells % (Manual) Nucleated RBC % 0 Metamyelocytes Hypochromia Platelet Estimate Polychromasia Poikilocytosis Anisocytosis Microcytosis Macrocytosis Tear Drop Cells PT with INR 16.00 H INR 1.35 H PTT (Actin FS) 39.4 H Sodium 143 Potassium 4.3 Chloride 106 Carbon Dioxide 32 Anion Gap 5 L BUN 16.2 Creatinine 1.1 Est GFR (CKD-EPI)AfAm 65.00 Est GFR (CKD-EPI)NonAf 56.08 Random Glucose 90 Hemoglobin A1c % Calcium 9.6 Magnesium Total Bilirubin 0.3 AST 23 ALT 21 Alkaline Phosphatase 54 Creatine Kinase 111 Troponin I 0.02 B-Natriuretic Peptide 720.7 H Total Protein 6.4 Albumin 3.1 L 05/13/19 05/13/19 05/13/19 04:00 06:24 06:24 WBC 2.7 L RBC 3.28 L Hgb 9.8 L Hct 30.0 L MCV 91.6 MCH 30.0 MCHC 32.7 RDW 15.8 H Plt Count 179 MPV 9.6 Absolute Neuts (auto) 0.7 L Neutrophils % 27.6 L D Neutrophils % (Manual) 27.9 L Band Neutrophils % 0.0 Lymphocytes % 60.6 H Lymphocytes % (Manual) 59.6 H Monocytes % 10.2 Monocytes % (Manual) 10 Eosinophils % 0.8 Eosinophils % (Manual) 0.0 Basophils % 0.8 Basophils % (Manual) 1.0 Myelocytes % (Man) 0 Promyelocytes % (Man) 0 Blast Cells % (Manual) 0 Nucleated RBC % 0 Metamyelocytes 0 Hypochromia 1+ Platelet Estimate Normal Polychromasia 0 Poikilocytosis 1+ Anisocytosis 1+ Microcytosis 1+ Macrocytosis 0 Tear Drop Cells 1+ PT with INR INR PTT (Actin FS) Sodium 139 Potassium 4.6 Chloride 105 Carbon Dioxide 29 Anion Gap 5 L BUN 15.5 Creatinine 1.0 Est GFR (CKD-EPI)AfAm 72.93 Est GFR (CKD-EPI)NonAf 62.93 Random Glucose 80 Hemoglobin A1c % Calcium 9.2 Magnesium 2.0 Total Bilirubin AST ALT Alkaline Phosphatase Creatine Kinase Troponin I < 0.02 B-Natriuretic Peptide Total Protein Albumin 05/13/19 05/13/19 06:24 06:24 WBC RBC Hgb Hct MCV MCH MCHC RDW Plt Count MPV Absolute Neuts (auto) Neutrophils % Neutrophils % (Manual) Band Neutrophils % Lymphocytes % Lymphocytes % (Manual) Monocytes % Monocytes % (Manual) Eosinophils % Eosinophils % (Manual) Basophils % Basophils % (Manual) Myelocytes % (Man) Promyelocytes % (Man) Blast Cells % (Manual) Nucleated RBC % Metamyelocytes Hypochromia Platelet Estimate Polychromasia Poikilocytosis Anisocytosis Microcytosis Macrocytosis Tear Drop Cells PT with INR INR PTT (Actin FS) Sodium Potassium Chloride Carbon Dioxide Anion Gap BUN Creatinine Est GFR (CKD-EPI)AfAm Est GFR (CKD-EPI)NonAf Random Glucose Hemoglobin A1c % 5.5 Calcium Magnesium Total Bilirubin AST ALT Alkaline Phosphatase Creatine Kinase Troponin I < 0.02 B-Natriuretic Peptide Total Protein Albumin HOSPITAL COURSE: Date of Admission:05/12/19 Ms. Porter is a 58 year old F with pmhx of atrial fibrillation (s/p PPM on Xarelto), CHF (severe systolic L ventricular dysfunction w/ LVEF 20%, class 1-2 NYHA LV failure), [place] (s/p stent in 2014), dilate cardiomyopathy, COPD (on home O2 3L), HTN, HLD, BPD, crack abuse, EtOH abuse admitted for unstable angina and rule out ACS in the setting of severe cardiac history and multiple comorbidities. Of note the patient was hospitalized on 05/10/2019 with similar symptoms and discharged to [facility] the same day with plans to f/u with her lead sewage plant operator Dr. Venkata Morgan at [facility]. Her cp was thought to be non cardiac and her trops were Neg. She did not show any signs of withdrawal . On this admission her w/u included serial EKGs and trops. EKG was unchanged from previous admission and trops were once again negative. Patient's meds were confirmed with her and she was continued on her home meds. Her labs revealed a leukopenia which is chronic and most likely 2/2 to alcohol use, however she was instructed to F/U with her psychiatrist as an outpatient about her Abilify dose as this can worsen leukopenia and the medication may need to be adjusted or changed. Date of Discharge: 05/13/19 Minutes to complete discharge: 40 Discharge Summary Reason For Visit: CHEST PAIN Current Active Problems Atypical chest pain (Acute) AICD (automatic cardioverter/defibrillator) present (Chronic) Alcohol dependence (Chronic) Atrial fibrillation (Chronic) Chronic heart failure (Chronic) Cocaine dependence, uncomplicated (Chronic) Depression (Chronic) Schizoaffective disorder (Chronic) Condition: Stable - Instructions Diet, Activity, Other Instructions: you are being discharged back to [facility] rehab. Your cardiac exam was unchanged and cleared, no indication of acute heart attack . You were evaluated on Friday 05/11 by cardiology and they cleared you for discharge to rehab. You should follow up with your psychiatrist about your Abilify prescription for possible change due to low white blood cell count. Referrals: Ibeth Tello MD [Primary Care Provider] - Herman Atkins MD [Staff Physician] - Disposition: HOME - Home Medications Comprehensive Discharge Medication List: Ambulatory Orders Albuterol Sulfate Inhaler - [Ventolin HFA Inhaler -] 2 inh IH Q4H PRN 01/09/13 Aripiprazole [Abilify -] 30 mg PO DAILY 01/09/13 Salmeterol/Fluticasone [Advair 250Mcg/50Mcg -] 1 inh IH BID 01/09/13 Amiodarone HCl [Cordarone -] 200 mg PO DAILY 08/01/16 Aspirin [ASA -] 81 mg PO DAILY tab.chew 08/02/16 Furosemide [Lasix -] 20 mg PO DAILY 12/21/16 Losartan Potassium [Cozaar -] 25 mg PO DAILY 12/21/16 traZODone HCL [Desyrel -] 150 mg PO HS 12/21/16 Fluoxetine HCl 20 mg PO DAILY 05/08/19 Metformin HCl [Metformin HCl ER] 500 mg PO DAILY 05/08/19 Rivaroxaban [Xarelto -] 20 mg PO HS 05/08/19 Atorvastatin Ca [Lipitor] 40 mg PO HS #30 tablet 05/10/19 Thiamine HCl [Vitamin B1 -] 100 mg PO DAILY tablet 05/10/19 Budesonide/Formeterol Fumarate [SYMBICORT 80/4.5mcg -] 1 inh PO BID 05/13/19 This patient is new to me today: Yes Date on this admission: 05/13/19 Emergency Visit: Yes ED Registration Date: 05/12/19 Care time: The patient presented to the Emergency Department on the above date and was hospitalized for further evaluation of their emergent condition. Critical Care patient: No - Discharge Referral Referred to [facility] No ATTENDING PHYSICIAN STATEMENT I saw and evaluated the patient. I reviewed the resident's note and discussed the case with the resident. I agree with the resident's findings and plan as documented. SUBJECTIVE: OBJECTIVE: ASSESSMENT AND PLAN:
--- NOTE | 2019-05-13 22:48 | PDOC ---
Documentation entered by Harris Barnes SCRIBE, acting as scribe for Gregory Ross MD. Gregory Ross MD: This documentation has been prepared by the Cameron acosta Daniel, SCRIBE, under my direction and personally reviewed by me in its entirety. I confirm that the documentation accurately reflects all work, treatment, procedures, and medical decision making performed by me. *Physical Exam - Vital Signs Last Vital Signs Temp Pulse Resp BP Pulse Ox 97.6 F 66 18 100/72 100 05/12/19 17:25 05/12/19 17:25 05/12/19 17:25 05/12/19 17:25 05/12/19 17:25 ED Treatment Course - LABORATORY CBC & Chemistry Diagram: 05/13/19 06:24 05/13/19 06:24 - ADDITIONAL ORDERS Additional order review: Laboratory Results 05/12/19 05/12/19 18:25 18:25 PT with INR 16.00 H INR 1.35 H PTT (Actin FS) 39.4 H Sodium 143 Potassium 4.3 Chloride 106 Carbon Dioxide 32 Anion Gap 5 L BUN 16.2 Creatinine 1.1 Est GFR (CKD-EPI)AfAm 65.00 Est GFR (CKD-EPI)NonAf 56.08 Random Glucose 90 Calcium 9.6 Total Bilirubin 0.3 AST 23 ALT 21 Alkaline Phosphatase 54 Creatine Kinase 111 Troponin I 0.02 B-Natriuretic Peptide 720.7 H Total Protein 6.4 Albumin 3.1 L 05/12/19 18:25 RBC 3.45 L MCV 92.2 MCHC 32.0 RDW 15.5 MPV 9.8 Neutrophils % 34.9 L Lymphocytes % 52.9 H Monocytes % 10.4 H Eosinophils % 0.8 Basophils % 1.0 - Medications Given in the ED: ED Medications Discontinued Medications Generic Name Dose Route Start Last Admin Trade Name Freq PRN Reason Stop Dose Admin Acetaminophen 1,000 mg 05/12/19 18:12 05/12/19 21:42 Ofirmev Injection - IVPB 05/12/19 18:13 1,000 mg ONCE ONE Administration Amiodarone HCl 200 mg 05/13/19 10:00 05/13/19 09:56 Cordarone - PO 200 mg DAILY PHONG Administration Aripiprazole 30 mg 05/13/19 10:00 05/13/19 09:56 Abilify PO 30 mg DAILY PHONG Administration Aspirin 81 mg 05/13/19 10:00 05/13/19 09:56 Asa - PO 81 mg DAILY PHONG Administration Aspirin 324 mg 05/12/19 21:43 05/12/19 23:16 Asa - PO 05/12/19 21:44 324 mg ONCE ONE Administration Atorvastatin Calcium 40 mg 05/12/19 22:00 05/12/19 23:16 Lipitor - PO 40 mg HS PHONG Administration Budesonide/Formoterol Fumarate 2 puff 05/12/19 22:00 05/13/19 09:56 Symbicort 80/4.5mcg - IH 2 puff BID PHONG Administration Fluoxetine HCl 20 mg 05/13/19 10:00 05/13/19 09:56 Prozac - PO 20 mg DAILY PHONG Administration Furosemide 20 mg 05/13/19 10:00 05/13/19 09:56 Lasix - PO 20 mg DAILY PHONG Administration Isosorbide Mononitrate 30 mg 05/12/19 21:30 05/13/19 09:56 Imdur - PO 30 mg DAILY PHONG Administration Losartan Potassium 25 mg 05/13/19 10:00 05/13/19 09:56 Cozaar - PO 25 mg DAILY PHONG Administration Metformin HCl 500 mg 05/13/19 07:00 05/13/19 07:13 Glucophage Xr - PO 500 mg AM PHONG Administration Thiamine HCl 100 mg 05/13/19 10:00 05/13/19 09:56 Vitamin B1 - PO 100 mg DAILY PHONG Administration *DC/Admit/Observation/Transfer Diagnosis at time of Disposition: Chest pain - Discharge Dispostion Disposition: TRANSFER ACUTE CARE/OTHER HOSP Condition at time of disposition: Stable - Referrals - Patient Instructions - Post Discharge Activity - Attestations Physician Attestion: 05/13/19 22:47 Cocaine chest pain in pt with CAD trop neg EKG unchanged x 2 ASA admit tele/obs
--- NOTE | 2019-05-20 12:20 | PDOC ---
Documentation entered by Isis Yost SCRIBE, acting as scribe for Taty Pimentel MD. Taty Pimentel MD: This documentation has been prepared by the Ritika acosta Renju, SCRIBE, under my direction and personally reviewed by me in its entirety. I confirm that the documentation accurately reflects all work, treatment, procedures, and medical decision making performed by me. Attending Attestation - Resident Resident Name: Shea Mosley - ED Attending Attestation I have performed the following: I have examined & evaluated the patient, The case was reviewed & discussed with the resident, I agree w/resident's findings & plan, Exceptions are as noted - HPI HPI: 05/12/19 18:22 Ms. Porter presents to the ER for evaluation of chest pain. She is a 58 year old female with a past medical history of Afib (on Eliquis for A/C), CAD AICD, HTN, HLD, COPD on home oxygen, CHF, polysubstance abuse, depression, anxiety, and bipolar schizoaffective, coming from [facility], who presents to the emergency department for evaluation of chest pain at 1500 this afternoon. Allergies: LARA Inhibitors, enalaprilat dihydrate, shellfish derived Shx: None. Social: EtOH abuse. Cocaine abuse. - Physicial Exam PE: 05/12/19 18:22 GENERAL: The patient is in no acute distress. HEAD: Normal EYES: PERRLA, EOMI, sclera anicteric, conjunctiva clear. ENT: Ears normal, nares patent, oropharynx clear without exudates. Moist mucous membranes. Edentuous LUNGS: Breath sounds equal, clear to auscultation bilaterally. No wheezes, and no crackles. HEART: LIA, normal S1 and S2 ABDOMEN: Soft, nontender, normoactive bowel sounds. EXTREMITIES: Normal range of motion NEUROLOGICAL: Cranial nerves II through XII grossly intact. Normal speech. No focal neurological deficits. MUSCULOSKELETAL: Back non-tender to palpation 11 SKIN: Warm, Dry, normal turgor, no rashes or lesions noted. 05/12/19 18:55 - Medical Decision Making 58 yo F presenting with a complaint of chest pain Pt has extensive history Will do: Labs EKG CXR Will contact Dr. 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
== END 2019-05-13 12:05 | disposition other institution (70) ==
LOC: JER 16:56 → JERBED 20:59
PROVIDERS: ADMIT Internal Medicine; ATTEND Internal Medicine
PROC: 3E033NZ Introduction of Analgesics, Hypnotics, Sedatives into Peripheral Vein, Percutaneous Approach (ICD-10-PCS; principal; 2019-05-12)
PROC: 3E0F7GC Introduction of Other Therapeutic Substance into Respiratory Tract, Via Natural or Artificial Opening (ICD-10-PCS; 2019-05-12)
DX: R07.89 Other chest pain (principal); I11.0 Hypertensive heart disease with heart failure; E78.5 Hyperlipidemia, unspecified; I48.0 Paroxysmal atrial fibrillation; I50.20 Unspecified systolic (congestive) heart failure; I25.110 Atherosclerotic heart disease of native coronary artery with unstable angina pectoris; I25.2 Old myocardial infarction; F10.20 Alcohol dependence, uncomplicated; F14.20 Cocaine dependence, uncomplicated; J44.9 Chronic obstructive pulmonary disease, unspecified; F41.9 Anxiety disorder, unspecified; F31.9 Bipolar disorder, unspecified; F25.9 Schizoaffective disorder, unspecified; F17.210 Nicotine dependence, cigarettes, uncomplicated; G47.33 Obstructive sleep apnea (adult) (pediatric); F60.3 Borderline personality disorder; E66.9 Obesity, unspecified; Z68.29 Body mass index [BMI] 29.0-29.9, adult; Z99.89 Dependence on other enabling machines and devices; Z99.81 Dependence on supplemental oxygen; Z79.82 Long term (current) use of aspirin; Z95.5 Presence of coronary angioplasty implant and graft; Z95.810 Presence of automatic (implantable) cardiac defibrillator; Z79.01 Long term (current) use of anticoagulants; Z91.013 Allergy to seafood; Z88.8 Allergy status to other drugs, medicaments and biological substances
CPT/HCPCS: 36415; 71046-TC-FY; 80048; 80053; 82550; 83036; 83735; 83880; 84484; 85025; 85610; 85730; 93005; 93010; 93306-TC; 94640; 96374; 99285-25; G0378; J0131

== ENCOUNTER 2019-05-13 12:25 | Inpatient (IN) | payer OTHER ==
[2019-05-13 13:02] VITALS: BMI 31.9
[2019-05-13] MEDS ORDERED: LOPERAMIDE HCL 2 MG CAPSULE PO PRN (13:50)
[2019-05-13] MEDS ORDERED: P-EPHED 60MG/TRIPROLIDI 2.5MG TABLET PO PRN (13:50)
[2019-05-13] MEDS ORDERED: MAGNESIUM CITRATE 300 ML BOTTLE PO PRN (13:50)
[2019-05-13] MEDS ORDERED: MENTHOL/PHENOL 1 EACH UD MM PRN (13:50)
[2019-05-13] MEDS ORDERED: MAGNESIUM HYDROX 2400MG/30ML ORAL SUSPENSION 30 ML CUP PO PRN (13:50)
[2019-05-13] MEDS ORDERED: guaiFENesin 200 MG/10 ML 10 ML UNIT-DOSE CUPS PO PRN (13:50)
[2019-05-13] MEDS ORDERED: IBUPROFEN 400 MG TABLET (FP) PO PRN (13:50)
[2019-05-13] MEDS ORDERED: ALBUTEROL SO4 8 GM HFA INHALER IH PRN (13:51)
[2019-05-13] MEDS ORDERED: BUDESONIDE/FORMETEROL FUMARATE 80/4.5 mcg INHALER IH SCH (14:00)
[2019-05-13] MEDS ORDERED: AMIODARONE HCL 200 MG TABLET (FP) PO SCH (14:30)
--- NOTE | 2019-05-13 16:48 | DS ---
Physical Exam: SUBJECTIVE: Patient seen and examined at the bedside, she was comfortably asleep but awoke to be examined. Patient still endorsing chest pain, however appears comfortable in no acute distress. OBJECTIVE: Vital Signs Period Temp Pulse Resp BP Sys/Powell Pulse Ox Last 24 Hr 96.9 F 75 18 100/70 PHYSICAL EXAM GENERAL: Asleep but able to be woken up, alert, and fully oriented, in no acute distress. HEAD: Normal with no signs of trauma. EYES: Pupils equal, round and reactive to light, extraocular movements intact, conjunctiva clear. NECK: Normal range of motion, supple without lymphadenopathy, JVD. LUNGS: Breath sounds equal, clear to auscultation bilaterally. No wheezes, and no crackles. No accessory muscle use. on NC 3L HEART: Regular rate and rhythm, normal S1 and S2 with audible 3/6 systolic murmur. No reproducible chest pain. ABDOMEN: Soft, nontender, not distended, normoactive bowel sounds, no guarding, no rebound, no masses. MUSCULOSKELETAL: Normal range of motion at all joints. No bony deformities or tenderness. Noted lipomas on back (chronic) UPPER EXTREMITIES: 2+ pulses, warm, well-perfused. No cyanosis. No clubbing. No peripheral edema. LOWER EXTREMITIES: 1+ pulses, warm, well-perfused. No calf tenderness. No peripheral edema. NEUROLOGICAL: Cranial nerves II-XII intact. Normal speech. Muscle strength 5/5 bilaterally upper and lower extremities. PSYCHIATRIC: Cooperative. Good eye contact. Appropriate mood and affect. SKIN: Warm, dry, normal turgor, no rashes or lesions noted, normal capillary refill. LABS HOSPITAL COURSE: Date of Admission:05/13/19 Ms. Porter is a 58 year old F with pmhx of atrial fibrillation (s/p PPM on Xarelto), CHF (severe systolic L ventricular dysfunction w/ LVEF 20%, class 1-2 NYHA LV failure), UT (s/p stent in 2014), dilate cardiomyopathy, COPD (on home O2 3L), HTN, HLD, BPD, crack abuse, EtOH abuse admitted for unstable angina and rule out ACS in the setting of severe cardiac history and multiple comorbidities. Of note the patient was hospitalized on 05/10/2019 with similar symptoms and discharged to [facility] the same day with plans to f/u with her traffic sergeant Dr. Venkata Morgan at [facility]. Her cp was thought to be non cardiac and her trops were Neg. She did not show any signs of withdrawal . On this admission her w/u included serial EKGs and trops. EKG was unchanged from previous admission and trops were once again negative. Patient's meds were confirmed with her and she was continued on her home meds. Her labs revealed a leukopenia which is chronic and most likely 2/2 to alcohol use, however she was instructed to F/U with her psychiatrist as an outpatient about her Abilify dose as this can worsen leukopenia and the medication may need to be adjusted or changed. Date of Discharge: 05/13/19 Minutes to complete discharge: 40 Discharge Summary Reason For Visit: REHAB-JUSTYNA/SRINI Current Active Problems Atypical chest pain (Acute) AICD (automatic cardioverter/defibrillator) present (Chronic) Alcohol dependence (Chronic) Atrial fibrillation (Chronic) Chronic heart failure (Chronic) Cocaine dependence, uncomplicated (Chronic) Depression (Chronic) Schizoaffective disorder (Chronic) - Instructions - Home Medications Comprehensive Discharge Medication List: Ambulatory Orders Albuterol Sulfate Inhaler - [Ventolin HFA Inhaler -] 2 inh IH Q4H PRN 01/09/13 Aripiprazole [Abilify -] 30 mg PO DAILY 01/09/13 Salmeterol/Fluticasone [Advair 250Mcg/50Mcg -] 1 inh IH BID 01/09/13 Amiodarone HCl [Cordarone -] 200 mg PO DAILY 08/01/16 Aspirin [ASA -] 81 mg PO DAILY tab.chew 08/02/16 Furosemide [Lasix -] 20 mg PO DAILY 12/21/16 Losartan Potassium [Cozaar -] 25 mg PO DAILY 12/21/16 traZODone HCL [Desyrel -] 150 mg PO HS 12/21/16 Fluoxetine HCl 20 mg PO DAILY 05/08/19 Metformin HCl [Metformin HCl ER] 500 mg PO DAILY 05/08/19 Rivaroxaban [Xarelto -] 20 mg PO HS 05/08/19 Atorvastatin Ca [Lipitor] 40 mg PO HS #30 tablet 05/10/19 Thiamine HCl [Vitamin B1 -] 100 mg PO DAILY tablet 05/10/19 Budesonide/Formeterol Fumarate [SYMBICORT 80/4.5mcg -] 1 inh PO BID 05/13/19 This patient is new to me today: Yes Date on this admission: 05/13/19 Emergency Visit: Yes ED Registration Date: 05/13/19 Care time: The patient presented to the Emergency Department on the above date and was hospitalized for further evaluation of their emergent condition. Critical Care patient: No - Discharge Referral Referred to [facility] Med P.C.: No ATTENDING PHYSICIAN STATEMENT I saw and evaluated the patient. I reviewed the resident's note and discussed the case with the resident. I agree with the resident's findings and plan as documented. SUBJECTIVE: OBJECTIVE: ASSESSMENT AND PLAN:
[2019-05-13] MEDS: MELATONIN 5 MG TABLETS PO PRN (21:33)
[2019-05-13] MEDS: RIVAROXABAN 20 MG TABLET PO SCH (21:33)
[2019-05-13] MEDS: THIAMINE HCL 100 MG TABLET (FP) PO SCH (21:33)
[2019-05-13] MEDS: ATORVASTATIN CA 40 MG TABLET (FP) PO SCH (21:33)
[2019-05-13] MEDS: traZODone HCL 50 MG TABLET (FP) PO SCH (21:33)
[2019-05-13] MEDS ORDERED: PT OWN MED DRAWER 7, Y5N ONE ×2 (21:35→22:41)
[2019-05-13] MEDS: BUDESONIDE/FORMETEROL FUMARATE 80/4.5 mcg INHALER IH SCH (21:36)
[2019-05-14] MEDS ORDERED: PT OWN MED DRAWER 7, Y5N ONE ×2 (08:28→21:38)
[2019-05-14] MEDS: ARIPiprazole 15 MG TABLET PO SCH (10:09)
[2019-05-14] MEDS: FUROSEMIDE 20 MG TABLET (FP) PO SCH (10:09)
[2019-05-14] MEDS: BUDESONIDE/FORMETEROL FUMARATE 80/4.5 mcg INHALER IH SCH ×2 (10:09→21:37)
[2019-05-14] MEDS: LOSARTAN POTASSIUM 25 MG TABLET PO SCH (10:09)
[2019-05-14] MEDS: AMIODARONE HCL 200 MG TABLET (FP) PO SCH (10:10)
[2019-05-14] MEDS: PRENATAL VITAMINS W/ FOLIC ACID TABLET (FP) PO SCH (10:10)
[2019-05-14] MEDS: FLUoxetine HCL 20 MG CAPSULE (FP) PO SCH (10:10)
[2019-05-14] MEDS: ASPIRIN 81 MG CHEWABLE TABLETS PO SCH (10:10)
[2019-05-14] MEDS: THIAMINE HCL 100 MG TABLET (FP) PO SCH ×2 (10:12→21:36)
[2019-05-14 14:31] LABS: PH,URINE 6.5 (5.0-8.0); URINE APPEARANCE CLEAR; URINE BILIRUBIN NEGATIVE (NEGATIVE); URINE COLOR YELLOW; URINE GLUCOSE (UA) NEGATIVE (NEGATIVE); URINE KETONE NEGATIVE (NEGATIVE); URINE LEUK ESTERASE NEGATIVE (NEGATIVE); URINE NITRITE NEGATIVE (NEGATIVE); URINE PROTEIN NEGATIVE (NEGATIVE); URINE UROBILINOGEN 0.2 mg/dL (0.2-1.0)
[2019-05-14] MEDS: ACETAMINOPHEN 325 MG TABLET (FP) PO PRN (18:32)
[2019-05-14] MEDS: traZODone HCL 50 MG TABLET (FP) PO SCH (21:36)
[2019-05-14] MEDS: ATORVASTATIN CA 40 MG TABLET (FP) PO SCH (21:36)
[2019-05-14] MEDS: RIVAROXABAN 20 MG TABLET PO SCH (21:38)
[2019-05-15] MEDS: ASPIRIN 81 MG CHEWABLE TABLETS PO SCH (10:02)
[2019-05-15] MEDS: PRENATAL VITAMINS W/ FOLIC ACID TABLET (FP) PO SCH (10:03)
[2019-05-15] MEDS: FLUoxetine HCL 20 MG CAPSULE (FP) PO SCH (10:03)
[2019-05-15] MEDS: AMIODARONE HCL 200 MG TABLET (FP) PO SCH (10:05)
[2019-05-15] MEDS: LOSARTAN POTASSIUM 25 MG TABLET PO SCH (10:05)
[2019-05-15] MEDS: FUROSEMIDE 20 MG TABLET (FP) PO SCH (10:06)
[2019-05-15] MEDS: ARIPiprazole 15 MG TABLET PO SCH (10:06)
[2019-05-15] MEDS: BUDESONIDE/FORMETEROL FUMARATE 80/4.5 mcg INHALER IH SCH ×2 (10:06→21:39)
[2019-05-15] MEDS ORDERED: PT OWN MED DRAWER 7, Y5N ONE ×2 (10:24→19:20)
[2019-05-15] MEDS: THIAMINE HCL 100 MG TABLET (FP) PO SCH ×2 (10:33→21:17)
[2019-05-15] MEDS ORDERED: ONDANSETRON *ODT* 4 MG TABLET SL PRN (13:38)
--- NOTE | 2019-05-15 14:10 | PN ---
[facility] Progress Note Note: PATIENT SEEN FOR C/O ETOH CRAVINGS AND TREATMENT WITH POSSIBLE VIVITROL MAT. PATIENT HAS LONG STANDING HX OF ETOH AND COCAINE DEPENDENCE. PMH INCLUDES AR, CAD, AFIB, HTN, HLD AN DM. PATIENT DENIES ANY CHEST PAIN, SOB AN DIZZINESS TODAY. PATIENT STATES SHE CAN DRINK UP TO ONE PINT OF VODKA DAILY AND SNIFFS 00 DOLLARS WORTH OF COCAINE/DAY. CURRENTLY DENIES SEIZURES, DT AND BLACKOUTS. C/O NAUSEA WITH NO VOMITING. Laboratory Tests 05/14/19 05/14/19 05/15/19 06:20 10:50 06:07 POC Glucometer 82 89 Urine Color Yellow Urine Appearance Clear Urine pH 6.5 Ur Specific Hartshorn 1.020 Urine Protein Negative Urine Glucose (UA) Negative Urine Ketones Negative Urine Blood Negative Urine Nitrite Negative Urine Bilirubin Negative Urine Urobilinogen 0.2 Ur Leukocyte Esterase Negative Vital Signs (72 hours) 05/13/19 05/13/19 05/14/19 12:34 22:00 00:30 Temperature 96.9 F L Pulse Rate 75 64 Respiratory 18 18 Rate Blood Pressure 100/70 96/72 05/14/19 05/14/19 05/15/19 03:30 06:54 00:30 Temperature 97.0 F L Pulse Rate 71 Respiratory 18 18 18 Rate Blood Pressure 107/67 05/15/19 05/15/19 05/15/19 03:30 07:01 09:07 Temperature 97.3 F L Pulse Rate 60 64 Respiratory 18 18 18 Rate Blood Pressure 99/65 101/66 05/15/19 13:02 Temperature Pulse Rate 68 Respiratory 18 Rate Blood Pressure 128/77 PE: ALERT AND ORIENTED X 3 SKIN WARM AND DRY +PERRLA, EOMS INTACT BL NECK SUPPLE, NO JVD CAR S1S2 RESP CTA BL EXT NO TREMORS, AMB AD SANJAY A/P: ETOH DEPENDENCE CAD/HTN/AFIB/DM/S/P AR WILL HOLD STARTING NALTREXONE DUE TO RECENT CARDIAC EPISODE ON 04/30/19 (PATIENT TRANSFERRED TO [facility] AND TREATED) CONTINUE SUPPORTIVE MEASURES ENCOURAGE ORAL FLUIDS ADD ZOFRAN PRN MONITOR CLINICALLY
[2019-05-15] MEDS: traZODone HCL 50 MG TABLET (FP) PO SCH (21:17)
[2019-05-15] MEDS: MELATONIN 5 MG TABLETS PO PRN (21:17)
[2019-05-15] MEDS: ATORVASTATIN CA 40 MG TABLET (FP) PO SCH (21:17)
[2019-05-15] MEDS: RIVAROXABAN 20 MG TABLET PO SCH (21:17)
[2019-05-16] MEDS ORDERED: PT OWN MED DRAWER 7, Y5N ONE ×3 (08:50→21:35)
[2019-05-16] MEDS: BUDESONIDE/FORMETEROL FUMARATE 80/4.5 mcg INHALER IH SCH ×2 (10:14→21:34)
[2019-05-16] MEDS: ASPIRIN 81 MG CHEWABLE TABLETS PO SCH (10:15)
[2019-05-16] MEDS: THIAMINE HCL 100 MG TABLET (FP) PO SCH ×2 (10:15→21:33)
[2019-05-16] MEDS: FLUoxetine HCL 20 MG CAPSULE (FP) PO SCH (10:15)
[2019-05-16] MEDS: ARIPiprazole 15 MG TABLET PO SCH (10:16)
[2019-05-16] MEDS: AMIODARONE HCL 200 MG TABLET (FP) PO SCH (11:08)
[2019-05-16] MEDS: FUROSEMIDE 20 MG TABLET (FP) PO SCH (11:08)
[2019-05-16] MEDS: PRENATAL VITAMINS W/ FOLIC ACID TABLET (FP) PO SCH (11:08)
[2019-05-16] MEDS: LOSARTAN POTASSIUM 25 MG TABLET PO SCH (11:08)
[2019-05-16] MEDS: ATORVASTATIN CA 40 MG TABLET (FP) PO SCH (21:33)
[2019-05-16] MEDS: RIVAROXABAN 20 MG TABLET PO SCH (21:35)
[2019-05-16] MEDS: traZODone HCL 50 MG TABLET (FP) PO SCH (21:36)
[2019-05-16] MEDS: MELATONIN 5 MG TABLETS PO PRN (21:36)
[2019-05-17] MEDS: BUDESONIDE/FORMETEROL FUMARATE 80/4.5 mcg INHALER IH SCH ×2 (10:20→21:27)
[2019-05-17] MEDS: ARIPiprazole 15 MG TABLET PO SCH (10:20)
[2019-05-17] MEDS: PRENATAL VITAMINS W/ FOLIC ACID TABLET (FP) PO SCH (10:21)
[2019-05-17] MEDS: ASPIRIN 81 MG CHEWABLE TABLETS PO SCH (10:21)
[2019-05-17] MEDS: FLUoxetine HCL 20 MG CAPSULE (FP) PO SCH (10:21)
[2019-05-17] MEDS: ACETAMINOPHEN 325 MG TABLET (FP) PO PRN ×3 (10:22→21:26)
[2019-05-17] MEDS ORDERED: NICOTINE POLACRILEX 2 MG GUM BUC PRN (10:41)
[2019-05-17] MEDS: AMIODARONE HCL 200 MG TABLET (FP) PO SCH (10:43)
[2019-05-17] MEDS: LOSARTAN POTASSIUM 25 MG TABLET PO SCH (10:44)
[2019-05-17] MEDS: FUROSEMIDE 20 MG TABLET (FP) PO SCH (10:44)
[2019-05-17] MEDS: NICOTINE 21 MG/24 HOURS TOPICAL PATCH TD SCH (11:05)
[2019-05-17] MEDS: THIAMINE HCL 100 MG TABLET (FP) PO SCH ×2 (11:08→21:27)
[2019-05-17] MEDS: ATORVASTATIN CA 40 MG TABLET (FP) PO SCH (21:26)
[2019-05-17] MEDS: traZODone HCL 50 MG TABLET (FP) PO SCH (21:26)
[2019-05-17] MEDS: RIVAROXABAN 20 MG TABLET PO SCH (21:27)
[2019-05-18] MEDS ORDERED: PT OWN MED DRAWER 7, Y5N ONE (08:47)
[2019-05-18] MEDS ORDERED: COLLOIDAL OATMEAL 1 BAR EACH TP PRN (09:29)
[2019-05-18] MEDS: FUROSEMIDE 20 MG TABLET (FP) PO SCH (10:12)
[2019-05-18] MEDS: ASPIRIN 81 MG CHEWABLE TABLETS PO SCH (10:12)
[2019-05-18] MEDS: FLUoxetine HCL 20 MG CAPSULE (FP) PO SCH (10:12)
[2019-05-18] MEDS: NICOTINE 21 MG/24 HOURS TOPICAL PATCH TD SCH (10:12)
[2019-05-18] MEDS: AMIODARONE HCL 200 MG TABLET (FP) PO SCH (10:12)
[2019-05-18] MEDS: PRENATAL VITAMINS W/ FOLIC ACID TABLET (FP) PO SCH (10:12)
[2019-05-18] MEDS: BUDESONIDE/FORMETEROL FUMARATE 80/4.5 mcg INHALER IH SCH ×2 (10:12→21:28)
[2019-05-18] MEDS: LOSARTAN POTASSIUM 25 MG TABLET PO SCH (10:12)
[2019-05-18] MEDS: ARIPiprazole 15 MG TABLET PO SCH (11:01)
--- NOTE | 2019-05-18 11:27 | PN ---
[facility] COWS - Scale Resting Pulse: 0= OH 80 or Below Sweatin= No chills or Flushing Restless Observation: 1= Difficult to Sit Still Pupil Size: 0= Normal to Room Light Bone or Joint Aches: 1= Mild Discomfort Runny Nose/ Eye Tearin= Nasal Congestion GI Upset > 30mins: 2= Nausea/Diarrhea Tremor Observation of Outstretched Hands: 1= Tremor [place], Not Seen Yawning Observation: 0= None Anxiety or Irritability: 1=Feels Anxious/Irritable Goose Flesh Skin: 0=Smooth Skin COWS Score: 7 S Progress Note (SOAP) Subjective: PATIENT SEEN FOR C/O ETOH CRAVINGS AND REQUESTING NALOXONE TREATMENT. HX OF ETOH AND COCAINE DEPENDENCE. PMH INCLUDES VA, CAD, AFIB, HTN, HLD AN DM. PATIENT HAD TWO ADMISSIONS TO [facility] FOR CHEST PAIN WHILE IN REHAB. PATIENT DENIES ANY CHEST PAIN, SOB AN DIZZINESS TODAY. PATIENT STATES SHE CAN DRINK UP TO ONE PINT OF VODKA DAILY AND SNIFFS 100 DOLLARS WORTH OF COCAINE/DAY. CURRENTLY DENIES SEIZURES, DT AND BLACKOUTS. C/O NAUSEA WITH NO VOMITING.COWS SCORE=7. Objective: GENERAL: NO APPARENT DISTRESS LUNG; CLEAR HEART: S1 S2 AUDIBLE ABD+BS, SOFT, NON-TENDER, NON-DISTENDED NKS: FULL WEIGHT BEARING, STEADY GAIT NEURO; CN2-12 INTACT, NO NEUROLOGICAL DEFICITS NOTED 05/18/19 11:23 Vital Signs (72 hours) 05/15/19 05/16/19 05/16/19 13:02 00:30 03:30 Temperature Pulse Rate 68 Respiratory 18 18 18 Rate Blood Pressure 128/77 05/16/19 05/16/19 05/16/19 07:33 09:31 10:47 Temperature 97.1 F L Pulse Rate 65 71 61 Respiratory 18 Rate Blood Pressure 99/69 94/65 107/76 05/17/19 05/17/19 05/17/19 00:30 07:21 10:38 Temperature 97.2 F L Pulse Rate 67 95 H Respiratory 18 18 18 Rate Blood Pressure 91/65 95/69 05/17/19 05/18/19 05/18/19 14:18 00:30 03:30 Temperature Pulse Rate 75 Respiratory 18 18 18 Rate Blood Pressure 100/66 05/18/19 05/18/19 07:33 09:16 Temperature 97.7 F Pulse Rate 73 70 Respiratory 18 17 Rate Blood Pressure 111/78 110/75 Assessment: WITHDRAWAL FROM COCAINE AND ETOH 05/18/19 11:25 Plan: DISCUSSED WITH PATIENT THE RISK OF PRESCRIBING VISTARIL OR CLONIDINE. AGREE WITH PREVIOUS ASSESSMENT TO HOLD NALOXONE AT PRESENT TIME. PATIENT UNDERSTOOD. ADVISED TO STAY HYDRATED, TAKE ZOFRAN NEEDED, AND CONTINUE TO "TALK OUT HER CRAVINGS WITH COUNSELOR AND PEERS." WILL CONTINUE TO MONITOR.
[2019-05-18] MEDS: THIAMINE HCL 100 MG TABLET (FP) PO SCH (21:27)
[2019-05-18] MEDS: ATORVASTATIN CA 40 MG TABLET (FP) PO SCH (21:27)
[2019-05-18] MEDS: traZODone HCL 50 MG TABLET (FP) PO SCH (21:27)
[2019-05-18] MEDS: MELATONIN 5 MG TABLETS PO PRN (21:28)
[2019-05-18] MEDS: RIVAROXABAN 20 MG TABLET PO SCH (21:28)
[2019-05-19] MEDS: FLUoxetine HCL 20 MG CAPSULE (FP) PO SCH (10:15)
[2019-05-19] MEDS: ASPIRIN 81 MG CHEWABLE TABLETS PO SCH (10:15)
[2019-05-19] MEDS: PRENATAL VITAMINS W/ FOLIC ACID TABLET (FP) PO SCH (10:16)
[2019-05-19] MEDS: NICOTINE 21 MG/24 HOURS TOPICAL PATCH TD SCH (10:16)
[2019-05-19] MEDS: ARIPiprazole 15 MG TABLET PO SCH (10:18)
[2019-05-19] MEDS: BUDESONIDE/FORMETEROL FUMARATE 80/4.5 mcg INHALER IH SCH ×2 (10:18→21:45)
[2019-05-19] MEDS: ACETAMINOPHEN 325 MG TABLET (FP) PO PRN (10:19)
[2019-05-19] MEDS: AMIODARONE HCL 200 MG TABLET (FP) PO SCH (11:28)
[2019-05-19] MEDS: FUROSEMIDE 20 MG TABLET (FP) PO SCH (11:30)
[2019-05-19] MEDS: LOSARTAN POTASSIUM 25 MG TABLET PO SCH (11:30)
[2019-05-19] MEDS: MELATONIN 5 MG TABLETS PO PRN (21:17)
[2019-05-19] MEDS: THIAMINE HCL 100 MG TABLET (FP) PO SCH (21:17)
[2019-05-19] MEDS: RIVAROXABAN 20 MG TABLET PO SCH (21:17)
[2019-05-19] MEDS: ATORVASTATIN CA 40 MG TABLET (FP) PO SCH (21:17)
[2019-05-19] MEDS: traZODone HCL 50 MG TABLET (FP) PO SCH (21:17)
[2019-05-20] MEDS ORDERED: PT OWN MED DRAWER 7, Y5N ONE (08:51)
[2019-05-20] MEDS: ASPIRIN 81 MG CHEWABLE TABLETS PO SCH (10:01)
[2019-05-20] MEDS: NICOTINE 21 MG/24 HOURS TOPICAL PATCH TD SCH (10:01)
[2019-05-20] MEDS: AMIODARONE HCL 200 MG TABLET (FP) PO SCH (10:01)
[2019-05-20] MEDS: FLUoxetine HCL 20 MG CAPSULE (FP) PO SCH (10:01)
[2019-05-20] MEDS: FUROSEMIDE 20 MG TABLET (FP) PO SCH (10:01)
[2019-05-20] MEDS: BUDESONIDE/FORMETEROL FUMARATE 80/4.5 mcg INHALER IH SCH ×2 (10:01→21:17)
[2019-05-20] MEDS: PRENATAL VITAMINS W/ FOLIC ACID TABLET (FP) PO SCH (10:01)
[2019-05-20] MEDS: LOSARTAN POTASSIUM 25 MG TABLET PO SCH (10:01)
[2019-05-20] MEDS: ARIPiprazole 15 MG TABLET PO SCH (10:02)
[2019-05-20] MEDS: MAG HYDROX/AL HYDROX/SIMETH 30 ML UNIT-DOSE CUP PO PRN (14:41)
[2019-05-20] MEDS: ATORVASTATIN CA 40 MG TABLET (FP) PO SCH (21:16)
[2019-05-20] MEDS: MELATONIN 5 MG TABLETS PO PRN (21:16)
[2019-05-20] MEDS: THIAMINE HCL 100 MG TABLET (FP) PO SCH (21:16)
[2019-05-20] MEDS: RIVAROXABAN 20 MG TABLET PO SCH (21:16)
[2019-05-20] MEDS: traZODone HCL 50 MG TABLET (FP) PO SCH (21:16)
[2019-05-21] MEDS: AMIODARONE HCL 200 MG TABLET (FP) PO SCH (10:16)
[2019-05-21] MEDS: ASPIRIN 81 MG CHEWABLE TABLETS PO SCH (10:16)
[2019-05-21] MEDS: ARIPiprazole 15 MG TABLET PO SCH (10:17)
[2019-05-21] MEDS: FLUoxetine HCL 20 MG CAPSULE (FP) PO SCH (10:17)
[2019-05-21] MEDS: PRENATAL VITAMINS W/ FOLIC ACID TABLET (FP) PO SCH (10:17)
[2019-05-21] MEDS: NICOTINE 21 MG/24 HOURS TOPICAL PATCH TD SCH (10:17)
[2019-05-21] MEDS: BUDESONIDE/FORMETEROL FUMARATE 80/4.5 mcg INHALER IH SCH ×2 (10:17→21:06)
[2019-05-21] MEDS: FUROSEMIDE 20 MG TABLET (FP) PO SCH (10:18)
[2019-05-21] MEDS: LOSARTAN POTASSIUM 25 MG TABLET PO SCH (10:18)
[2019-05-21] MEDS: MAG HYDROX/AL HYDROX/SIMETH 30 ML UNIT-DOSE CUP PO PRN (14:47)
[2019-05-21] MEDS: THIAMINE HCL 100 MG TABLET (FP) PO SCH (21:04)
[2019-05-21] MEDS: ATORVASTATIN CA 40 MG TABLET (FP) PO SCH (21:04)
[2019-05-21] MEDS: MELATONIN 5 MG TABLETS PO PRN (21:04)
[2019-05-21] MEDS: RIVAROXABAN 20 MG TABLET PO SCH (21:04)
[2019-05-21] MEDS: traZODone HCL 50 MG TABLET (FP) PO SCH (21:05)
[2019-05-22] MEDS ORDERED: PT OWN MED DRAWER 7, Y5N ONE ×4 (08:53→11:49)
[2019-05-22] MEDS: NICOTINE 21 MG/24 HOURS TOPICAL PATCH TD SCH (10:28)
[2019-05-22] MEDS: ASPIRIN 81 MG CHEWABLE TABLETS PO SCH (10:28)
[2019-05-22] MEDS: PRENATAL VITAMINS W/ FOLIC ACID TABLET (FP) PO SCH (10:29)
[2019-05-22] MEDS: ARIPiprazole 15 MG TABLET PO SCH (10:29)
[2019-05-22] MEDS: BUDESONIDE/FORMETEROL FUMARATE 80/4.5 mcg INHALER IH SCH ×2 (10:30→21:45)
[2019-05-22] MEDS: FLUoxetine HCL 20 MG CAPSULE (FP) PO SCH (10:30)
[2019-05-22] MEDS: FUROSEMIDE 20 MG TABLET (FP) PO SCH (10:44)
[2019-05-22] MEDS: AMIODARONE HCL 200 MG TABLET (FP) PO SCH (10:44)
[2019-05-22] MEDS: LOSARTAN POTASSIUM 25 MG TABLET PO SCH (11:22)
[2019-05-22] MEDS: MELATONIN 5 MG TABLETS PO PRN (21:43)
[2019-05-22] MEDS: traZODone HCL 50 MG TABLET (FP) PO SCH (21:43)
[2019-05-22] MEDS: RIVAROXABAN 20 MG TABLET PO SCH (21:43)
[2019-05-22] MEDS: THIAMINE HCL 100 MG TABLET (FP) PO SCH (21:43)
[2019-05-22] MEDS: ATORVASTATIN CA 40 MG TABLET (FP) PO SCH (21:43)
[2019-05-23] MEDS: ARIPiprazole 15 MG TABLET PO SCH (10:55)
[2019-05-23] MEDS: NICOTINE 21 MG/24 HOURS TOPICAL PATCH TD SCH (10:57)
[2019-05-23] MEDS: PRENATAL VITAMINS W/ FOLIC ACID TABLET (FP) PO SCH (10:59)
[2019-05-23] MEDS: ASPIRIN 81 MG CHEWABLE TABLETS PO SCH (10:59)
[2019-05-23] MEDS: LOSARTAN POTASSIUM 25 MG TABLET PO SCH (11:00)
[2019-05-23] MEDS: FLUoxetine HCL 20 MG CAPSULE (FP) PO SCH (11:00)
[2019-05-23] MEDS: FUROSEMIDE 20 MG TABLET (FP) PO SCH (11:00)
[2019-05-23] MEDS: AMIODARONE HCL 200 MG TABLET (FP) PO SCH (11:00)
[2019-05-23] MEDS: BUDESONIDE/FORMETEROL FUMARATE 80/4.5 mcg INHALER IH SCH ×2 (11:01→21:44)
[2019-05-23] MEDS: ATORVASTATIN CA 40 MG TABLET (FP) PO SCH (21:44)
[2019-05-23] MEDS: RIVAROXABAN 20 MG TABLET PO SCH (21:44)
[2019-05-23] MEDS: THIAMINE HCL 100 MG TABLET (FP) PO SCH (21:44)
[2019-05-23] MEDS: traZODone HCL 50 MG TABLET (FP) PO SCH (21:44)
[2019-05-23] MEDS: MELATONIN 5 MG TABLETS PO PRN (21:45)
[2019-05-24] MEDS ORDERED: PT OWN MED DRAWER 7, Y5N ONE ×2 (09:03→18:49)
[2019-05-24] MEDS: BUDESONIDE/FORMETEROL FUMARATE 80/4.5 mcg INHALER IH SCH ×2 (10:37→21:42)
[2019-05-24] MEDS: FLUoxetine HCL 20 MG CAPSULE (FP) PO SCH (10:37)
[2019-05-24] MEDS: ARIPiprazole 15 MG TABLET PO SCH (10:37)
[2019-05-24] MEDS: NICOTINE 21 MG/24 HOURS TOPICAL PATCH TD SCH (10:37)
[2019-05-24] MEDS: PRENATAL VITAMINS W/ FOLIC ACID TABLET (FP) PO SCH (10:37)
[2019-05-24] MEDS: ASPIRIN 81 MG CHEWABLE TABLETS PO SCH (10:37)
[2019-05-24] MEDS: LOSARTAN POTASSIUM 25 MG TABLET PO SCH (10:38)
[2019-05-24] MEDS: FUROSEMIDE 20 MG TABLET (FP) PO SCH (10:38)
[2019-05-24] MEDS: AMIODARONE HCL 200 MG TABLET (FP) PO SCH (10:38)
[2019-05-24] MEDS: THIAMINE HCL 100 MG TABLET (FP) PO SCH (21:29)
[2019-05-24] MEDS: MELATONIN 5 MG TABLETS PO PRN (21:29)
[2019-05-24] MEDS: traZODone HCL 50 MG TABLET (FP) PO SCH (21:29)
[2019-05-24] MEDS: ATORVASTATIN CA 40 MG TABLET (FP) PO SCH (21:29)
[2019-05-24] MEDS: RIVAROXABAN 20 MG TABLET PO SCH (21:29)
[2019-05-25 07:24] VITALS: TEMP 97.1
[2019-05-25 09:44] VITALS: BP 107/75; PULSE 72
[2019-05-25] MEDS: AMIODARONE HCL 200 MG TABLET (FP) PO SCH (09:51)
[2019-05-25] MEDS: ASPIRIN 81 MG CHEWABLE TABLETS PO SCH (09:51)
[2019-05-25] MEDS: BUDESONIDE/FORMETEROL FUMARATE 80/4.5 mcg INHALER IH SCH (09:51)
[2019-05-25] MEDS: LOSARTAN POTASSIUM 25 MG TABLET PO SCH (09:52)
[2019-05-25] MEDS: FUROSEMIDE 20 MG TABLET (FP) PO SCH (09:52)
[2019-05-25] MEDS: PRENATAL VITAMINS W/ FOLIC ACID TABLET (FP) PO SCH (09:52)
[2019-05-25] MEDS: NICOTINE 21 MG/24 HOURS TOPICAL PATCH TD SCH (09:52)
[2019-05-25] MEDS: FLUoxetine HCL 20 MG CAPSULE (FP) PO SCH (09:52)
[2019-05-25] MEDS: ARIPiprazole 15 MG TABLET PO SCH (09:53)
--- NOTE | 2019-05-25 10:05 | DS ---
[facility] Rehab Discharge Summary - [facility] Rehab Discharge Summary Admission Date: 05/13/19 Discharge Date: 05/25/19 - History Pertinent Past History: Pt did well here. Was taken twice to the ER for CAD- note below. Pt has f/u Hai shultz- 05/29. Pt will get medications from this PCP. Pt states she has all the medications with her. This was a note from the hospital[facility] discharge: Ms. Porter is a 58 year old F with pmhx of atrial fibrillation (s/p PPM on Xarelto), CHF (severe systolic L ventricular dysfunction w/ LVEF 20%, class 1-2 NYHA LV failure), GA (s/p stent in 2014), dilate cardiomyopathy, COPD (on home O2 3L), HTN, HLD, BPD, crack abuse, EtOH abuse admitted for unstable angina and rule out ACS in the setting of severe cardiac history and multiple comorbidities. 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 Venkata Shultz at [facility]. Her cp was thought to be non cardiac and her trops were Neg. She did not show any signs of withdrawal . On this admission her w/u included serial EKGs and trops. EKG was unchanged from previous admission and trops were once again negative. Patient's meds were confirmed with her and she was continued on her home meds. Her labs revealed a leukopenia which is chronic and most likely 2/2 to alcohol use, however she was instructed to F/U with her psychiatrist as an outpatient about her Abilify dose as this can worsen leukopenia and the medication may need to be adjusted or changed. - Discharge Physical Exam Vital Signs: Vital Signs Temperature 97.1 F L 05/25/19 07:23 Pulse Rate 72 05/25/19 09:43 Respiratory Rate 18 05/25/19 07:23 Blood Pressure 107/75 05/25/19 09:43 O2 Sat by Pulse Oximetry (%) - Medication Discharge Medications: Ambulatory Orders Albuterol Sulfate Inhaler - [Ventolin HFA Inhaler -] 2 inh IH Q4H PRN 01/09/13 Aripiprazole [Abilify -] 30 mg PO DAILY 01/09/13 Salmeterol/Fluticasone [Advair 250Mcg/50Mcg -] 1 inh IH BID 01/09/13 Amiodarone HCl [Cordarone -] 200 mg PO DAILY 08/01/16 Aspirin [ASA -] 81 mg PO DAILY tab.chew 08/02/16 Furosemide [Lasix -] 20 mg PO DAILY 12/21/16 Losartan Potassium [Cozaar -] 25 mg PO DAILY 12/21/16 traZODone HCL [Desyrel -] 150 mg PO HS 12/21/16 Fluoxetine HCl 20 mg PO DAILY 05/08/19 Metformin HCl [Metformin HCl ER] 500 mg PO DAILY 05/08/19 Rivaroxaban [Xarelto -] 20 mg PO HS 05/08/19 Atorvastatin Ca [Lipitor] 40 mg PO HS #30 tablet 05/10/19 Thiamine HCl [Vitamin B1 -] 100 mg PO DAILY tablet 05/10/19 Budesonide/Formeterol Fumarate [SYMBICORT 80/4.5mcg -] 1 inh PO BID 05/13/19 - Discharge Instructions Diet, activity, other medical instructions: Diet: Activity: Other medical instructions: - AMA Did Patient Leave Against Medical Advice: No
== END 2019-05-25 10:31 | disposition home or self-care (01) | DRG 772 ==
LOC: YASAS 12:25 → Y3E 13:05
PROVIDERS: ADMIT Neuromusculoskeletal Medicine & OMM; ATTEND Neuromusculoskeletal Medicine & OMM
PROC: HZ42ZZZ Group Counseling for Substance Abuse Treatment, Cognitive-Behavioral (ICD-10-PCS; principal; 2019-05-13)
DX: F10.20 Alcohol dependence, uncomplicated (principal); F14.20 Cocaine dependence, uncomplicated; I11.0 Hypertensive heart disease with heart failure; E78.5 Hyperlipidemia, unspecified; I48.91 Unspecified atrial fibrillation; I50.20 Unspecified systolic (congestive) heart failure; I25.2 Old myocardial infarction; I42.0 Dilated cardiomyopathy; J44.9 Chronic obstructive pulmonary disease, unspecified; D72.819 Decreased white blood cell count, unspecified; E11.9 Type 2 diabetes mellitus without complications; R07.89 Other chest pain; Z79.84 Long term (current) use of oral hypoglycemic drugs; Z95.5 Presence of coronary angioplasty implant and graft; Z95.810 Presence of automatic (implantable) cardiac defibrillator; Z99.81 Dependence on supplemental oxygen
CPT/HCPCS: 81003; 82962